=== PATIENT | female | born 1945 | race African-American/Black ===

== ENCOUNTER 2017-05-08 16:55 | Inpatient (IN) | payer MEDICARE, MEDICAID ==
[~2017-05-08] VITALS: Ht 182.9 cm; Wt 61.2 kg
[~2017-05-08 16:55] MED LIST: ALPR1TAB2 PO; AMIODARONE PO; ASPI-1159 PO; DIGO125T82 PO; DILT240C92 PO; DOC-Q-LACE PO; DOCU-150 PO; FERR-63 PO; FURO-151 PO; HYDR-519 PO; LOSA50TA20 PO; METO50TA5 PO; OCD PO; OYSTER SHELL CALCIUM PO; ZOLP5TAB8 PO
[2017-05-08 18:24] LABS: BASOPHILS % 1.3 % (0.0-2.0); EOSINOPHILS % 0.8 % (0.0-5.0); HEMATOCRIT. 34.7 % (36.0-48.0); HEMOGLOBIN. 11.4 g/dL (12.0-16.0); LYMPHOCYTES % 19.2 % (20.0-50.0); MEAN CORPUSCULAR HEMOGLOBIN 27.7 pg (28.0-32.0); MEAN CORPUSCULAR VOLUME 84.6 fL (81.0-99.0); MONOCYTES % 12.8 % (2.0-8.0); NEUTROPHILS % 65.9 % (40.0-76.0); PLATELET 291 x1000/uL (130-400); RED BLOOD CELL COUNT 4.11 mill/uL (4.2-5.4); RED CELL DISTRIBUTION WIDTH 16.1 % (11.6-14.6)
[2017-05-08 18:34] LABS: CARBON DIOXIDE 28 mEq/L (21-32); CHLORIDE 106 mEq/L (98-107); INR 1.1
[2017-05-08 18:39] LABS: TROPONIN I 0.14 ng/mL (0.00-0.04)
[2017-05-08] MEDS ORDERED: ASPIRIN 81MG TABLET PO ONE (19:15)
[2017-05-08] MEDS ORDERED: FUROSEMIDE 20MG/2ML VIAL IVP ONE (19:15)
[2017-05-08] MEDS ORDERED: IBUPROFEN 600MG TABLET PO PRN (20:00)
[2017-05-08] MEDS ORDERED: ACETAMINOPHEN 325MG TABLET PO PRN (20:00)
[2017-05-08 22:00] VITALS: BP 150/63
[2017-05-08] MEDS ORDERED: HYDR-2510 PO (23:32)
[2017-05-08] MEDS ORDERED: OMEP20TA2 PO (23:32)
[2017-05-08] MEDS ORDERED: HYDR-4133 PO (23:32)
[2017-05-09] MEDS: HYDROCODONE/ACETAMINOPHEN 10/325MG TABLET PO PRN ×2 (00:32→09:28)
[2017-05-09 00:35] VITALS: BP 172/67
[2017-05-09 05:02] VITALS: BP 182/76
[2017-05-09] MEDS: CALCIUM CARBONATE/VITAMIN D3 500MG TABLET PO SCH (07:02)
[2017-05-09] MEDS: HYDRALAZINE HCL 50MG TABLET PO SCH ×3 (07:02→21:12)
[2017-05-09] MEDS: OMEPRAZOLE 20MG CAPSULE EXTENDED RELEASE PO SCH (07:02)
[2017-05-09 07:29] LABS: HEMATOCRIT 32.6 % (36.0-48.0); HEMOGLOBIN 10.5 g/dL (12.0-16.0); MEAN CORPUSCULAR HEMOGLOBIN 27.6 pg (28.0-32.0); MEAN CORPUSCULAR VOLUME 85.4 fL (81.0-99.0); PLATELET 250 x1000/uL (130-400); RED BLOOD CELL COUNT 3.82 mill/uL (4.2-5.4); RED CELL DISTRIBUTION WIDTH 16.2 % (11.6-14.6)
[2017-05-09 07:50] VITALS: BP 118/67
[2017-05-09 07:52] LABS: CARBON DIOXIDE 31 mEq/L (21-32); CHLORIDE 106 mEq/L (98-107)
[2017-05-09] MEDS: CARVEDILOL 3.125 MG TABLET PO SCH ×2 (09:00→21:00)
[2017-05-09] MEDS ORDERED: MEDICATION NOT ON FORMULARY EA (Omeprazole 20 MG) PO SCH (09:00)
[2017-05-09] MEDS: DOCUSATE SODIUM 100MG CAPSULE PO SCH ×2 (09:16→17:05)
[2017-05-09] MEDS: ASPIRIN 81MG EC TABLET PO SCH (09:16)
[2017-05-09] MEDS: LOSARTAN POTASSIUM 50 MG TABLET PO SCH (09:16)
[2017-05-09] MEDS: FERROUS SULFATE 325MG TABLET PO SCH (09:17)
[2017-05-09] MEDS: FUROSEMIDE 40MG/4ML VIAL IVP SCH ×2 (09:17→17:05)
[2017-05-09] MEDS: METOPROLOL TARTRATE 50MG TABLET PO SCH ×2 (09:17→21:00)
[2017-05-09 11:48] VITALS: BP 169/68
[2017-05-09] MEDS: ENOXAPARIN 40MG/0.4ML SYR SUBCUT SCH (13:30)
[2017-05-09] MEDS ORDERED: DIAZEPAM 2 MG TABLET PO PRN (13:30)
[2017-05-09] MEDS ORDERED: IPRATROPIUM/ALBUTEROL 0.5-3(2.5)MG/3ML NEB HHN PRN ×2 (14:45)
[2017-05-09 16:00] VITALS: BP 160/67
[2017-05-09] MEDS: DIGOXIN 125MCG TABLET PO SCH (17:05)
[2017-05-09] MEDS: DIAZEPAM 2 MG TABLET PO PRN (17:05)
[2017-05-09] MEDS: IPRATROPIUM/ALBUTEROL 0.5-3(2.5)MG/3ML NEB HHN SCH ×2 (17:20→20:11)
[2017-05-09 20:06] VITALS: BP 171/61
[2017-05-10] MEDS: AMLODIPINE 10MG TABLET PO SCH ×2 (00:02→09:04)
[2017-05-10 00:03] VITALS: BP 169/67
[2017-05-10] MEDS: HYDROCODONE/ACETAMINOPHEN 10/325MG TABLET PO PRN ×3 (00:03→18:35)
[2017-05-10] MEDS: IPRATROPIUM/ALBUTEROL 0.5-3(2.5)MG/3ML NEB HHN SCH ×6 (00:31→20:41)
[2017-05-10 05:54] VITALS: BP 155/65
[2017-05-10] MEDS: HYDRALAZINE HCL 50MG TABLET PO SCH ×3 (06:25→21:58)
[2017-05-10] MEDS: OMEPRAZOLE 20MG CAPSULE EXTENDED RELEASE PO SCH (06:25)
[2017-05-10] MEDS: CALCIUM CARBONATE/VITAMIN D3 500MG TABLET PO SCH (06:25)
[2017-05-10 07:12] LABS: CARBON DIOXIDE 34 mEq/L (21-32); CHLORIDE 103 mEq/L (98-107)
[2017-05-10 08:00] VITALS: BP 148/79
[2017-05-10] MEDS: ENOXAPARIN 40MG/0.4ML SYR SUBCUT SCH (09:00)
[2017-05-10] MEDS: ASPIRIN 81MG EC TABLET PO SCH (09:04)
[2017-05-10] MEDS: FERROUS SULFATE 325MG TABLET PO SCH (09:04)
[2017-05-10] MEDS: DOCUSATE SODIUM 100MG CAPSULE PO SCH ×2 (09:04→17:36)
[2017-05-10] MEDS: LOSARTAN POTASSIUM 50 MG TABLET PO SCH (09:05)
[2017-05-10] MEDS: FUROSEMIDE 40MG/4ML VIAL IVP SCH ×2 (09:05→17:36)
[2017-05-10] MEDS: CARVEDILOL 3.125 MG TABLET PO SCH ×2 (09:05→21:58)
[2017-05-10 12:00] VITALS: BP 181/84
[2017-05-10] MEDS: DIAZEPAM 2 MG TABLET PO PRN (12:04)
[2017-05-10 16:00] VITALS: BP 141/58
[2017-05-10] MEDS: DIGOXIN 125MCG TABLET PO SCH (17:36)
[2017-05-10] MEDS ORDERED: BISACODYL 10MG SUPP PR PRN (18:00)
[2017-05-10] MEDS ORDERED: BISACODYL 5MG TABLET PO NR (18:03)
[2017-05-10 20:43] VITALS: BP 143/76
[2017-05-11] MEDS: IPRATROPIUM/ALBUTEROL 0.5-3(2.5)MG/3ML NEB HHN SCH ×5 (00:45→21:47)
[2017-05-11 01:17] VITALS: BP 139/54
[2017-05-11 04:30] VITALS: BP 135/53
[2017-05-11 06:26] LABS: CARBON DIOXIDE 37 mEq/L (21-32); CHLORIDE 99 mEq/L (98-107)
[2017-05-11 06:27] LABS: BASOPHILS % 1.3 % (0.0-2.0); EOSINOPHILS % 1.8 % (0.0-5.0); HEMATOCRIT. 28.6 % (36.0-48.0); HEMOGLOBIN. 9.2 g/dL (12.0-16.0); LYMPHOCYTES % 19.8 % (20.0-50.0); MEAN CORPUSCULAR HEMOGLOBIN 27.4 pg (28.0-32.0); MEAN CORPUSCULAR VOLUME 84.9 fL (81.0-99.0); MEAN PLATELET VOLUME 7.1 fl (7.4-10.4); MONOCYTES % 13.8 % (2.0-8.0); NEUTROPHILS % 63.3 % (40.0-76.0); PLATELET 213 x1000/uL (130-400); RED BLOOD CELL COUNT 3.37 mill/uL (4.2-5.4)
[2017-05-11] MEDS: CALCIUM CARBONATE/VITAMIN D3 500MG TABLET PO SCH (06:28)
[2017-05-11] MEDS: HYDRALAZINE HCL 50MG TABLET PO SCH ×3 (06:29→21:32)
[2017-05-11] MEDS: HYDROCODONE/ACETAMINOPHEN 10/325MG TABLET PO PRN ×3 (06:57→22:43)
[2017-05-11 08:00] VITALS: BP 135/70
[2017-05-11] MEDS: ENOXAPARIN 40MG/0.4ML SYR SUBCUT SCH (09:00)
[2017-05-11] MEDS: AMLODIPINE 10MG TABLET PO SCH (10:26)
[2017-05-11] MEDS: FUROSEMIDE 40MG/4ML VIAL IVP SCH ×2 (10:26→17:01)
[2017-05-11] MEDS: FERROUS SULFATE 325MG TABLET PO SCH (10:26)
[2017-05-11] MEDS: DOCUSATE SODIUM 100MG CAPSULE PO SCH ×2 (10:26→17:01)
[2017-05-11] MEDS: LOSARTAN POTASSIUM 50 MG TABLET PO SCH (10:26)
[2017-05-11] MEDS: ASPIRIN 81MG EC TABLET PO SCH (10:27)
[2017-05-11] MEDS: CARVEDILOL 3.125 MG TABLET PO SCH ×2 (10:27→21:34)
[2017-05-11] MEDS: FAMOTIDINE 20MG TABLET PO SCH ×2 (10:27→21:31)
[2017-05-11] MEDS ORDERED: SODIUM CHLORIDE 0.9% 10ML VIAL ONE (11:47)
[2017-05-11] MEDS ORDERED: IOHEXOL-300 100 ML BOTTLE ONE (11:47)
[2017-05-11 12:00] VITALS: BP 155/85
[2017-05-11] MEDS: BUDESONIDE 0.5MG/2ML NEB HHN SCH ×2 (12:05→21:46)
[2017-05-11 16:00] VITALS: BP 146/95
[2017-05-11 16:05] LABS: CLARITY URINE CLEAR (CLEAR); COLOR URINE YELLOW (YELLOW); GLUCOSE URINE NEGATIVE (NEGATIVE); KETONES URINE NEGATIVE (NEGATIVE); LEUKOCYTE ESTERASE URINE NEGATIVE (NEGATIVE); NITRITE URINE NEGATIVE (NEGATIVE); OCCULT BLOOD URINE NEGATIVE (NEGATIVE); PH URINE 7.5 (4.5-8.0); PROTEIN URINE NEGATIVE (NEGATIVE); SPECIFIC GRAVITY URINE 1.035 (1.005-1.030); UROBILINOGEN URINE 0.2 E.U./dL (0.2-1.0)
[2017-05-11 16:16] LABS: *AMPHETAMINES SCREEN URINE NEGATIVE (NEGATIVE); *BARBITURATES SCREEN URINE NEGATIVE (NEGATIVE); *BENZODIAZEPINES SCREEN URINE NEGATIVE (NEGATIVE); *COCAINE SCREEN URINE NEGATIVE (NEGATIVE); CANNABINOID URINE SCREEN NEGATIVE (NEGATIVE); METHADONE URINE SCREEN NEGATIVE (NEGATIVE); OPIATES URINE SCREEN PRESUMTIVE POSITIVE (NEGATIVE); PHENCYCLIDINE URINE SCREEN NEGATIVE (NEGATIVE)
[2017-05-11] MEDS: METHYLPREDNISOLONE SOD SUCC 40 MG/ML VIAL IV SCH (17:01)
[2017-05-11] MEDS: DIGOXIN 125MCG TABLET PO SCH (17:01)
[2017-05-11] MEDS ORDERED: NICOTINE 21MG PATCH TD NR (18:30)
[2017-05-11 20:13] VITALS: BP 176/75
[2017-05-11] MEDS: GUAIFENESIN 600MG ER TABLET PO SCH (21:32)
[2017-05-12] VITALS (7 sets, daily range): BP systolic 108–179; BP diastolic 61–73
[2017-05-12] MEDS: IPRATROPIUM/ALBUTEROL 0.5-3(2.5)MG/3ML NEB HHN SCH ×6 (00:56→20:11)
[2017-05-12] MEDS: METHYLPREDNISOLONE SOD SUCC 40 MG/ML VIAL IV SCH ×2 (01:00→09:05)
[2017-05-12] MEDS: CALCIUM CARBONATE/VITAMIN D3 500MG TABLET PO SCH (06:00)
[2017-05-12] MEDS: HYDRALAZINE HCL 50MG TABLET PO SCH ×3 (06:00→21:28)
[2017-05-12] MEDS: HYDROCODONE/ACETAMINOPHEN 10/325MG TABLET PO PRN ×3 (06:00→23:02)
[2017-05-12] MEDS: ENOXAPARIN 40MG/0.4ML SYR SUBCUT SCH (09:00)
[2017-05-12] MEDS: FUROSEMIDE 40MG/4ML VIAL IVP SCH ×2 (09:05→18:21)
[2017-05-12] MEDS: CARVEDILOL 3.125 MG TABLET PO SCH ×2 (09:06→21:00)
[2017-05-12] MEDS: NICOTINE 21MG PATCH TD SCH (09:06)
[2017-05-12] MEDS: GUAIFENESIN 600MG ER TABLET PO SCH ×2 (09:06→21:27)
[2017-05-12] MEDS: FERROUS SULFATE 325MG TABLET PO SCH (09:06)
[2017-05-12] MEDS: LOSARTAN POTASSIUM 50 MG TABLET PO SCH (09:07)
[2017-05-12] MEDS: DOCUSATE SODIUM 100MG CAPSULE PO SCH ×2 (09:07→18:22)
[2017-05-12] MEDS: DIAZEPAM 2 MG TABLET PO PRN (09:07)
[2017-05-12] MEDS: AMLODIPINE 10MG TABLET PO SCH (09:07)
[2017-05-12] MEDS: ASPIRIN 81MG EC TABLET PO SCH (09:07)
[2017-05-12] MEDS: FAMOTIDINE 20MG TABLET PO SCH ×3 (09:07→21:27)
[2017-05-12] MEDS ORDERED: NIFEDIPINE XL 30MG TAB PO SCH (10:00)
[2017-05-12] MEDS: BUDESONIDE 0.5MG/2ML NEB HHN SCH ×2 (10:09→20:11)
[2017-05-12] MEDS ORDERED: AMLODIPINE 5MG TABLET PO NR (12:00)
[2017-05-12] MEDS: PREDNISONE 20MG TABLET PO SCH (12:53)
[2017-05-12] MEDS: DIAZEPAM 5 MG TABLET PO PRN (15:43)
[2017-05-12] MEDS: CLONIDINE 0.1MG TABLET PO PRN (15:43)
[2017-05-12] MEDS: DIGOXIN 125MCG TABLET PO SCH (18:21)
[2017-05-12] MEDS: AMLODIPINE 5MG TABLET PO SCH (21:00)
[2017-05-13] VITALS (7 sets, daily range): BP systolic 117–159; BP diastolic 52–84
[2017-05-13] MEDS: IPRATROPIUM/ALBUTEROL 0.5-3(2.5)MG/3ML NEB HHN SCH ×7 (00:09→23:37)
[2017-05-13] MEDS: DIAZEPAM 5 MG TABLET PO PRN ×2 (04:13→16:23)
[2017-05-13] MEDS: HYDRALAZINE HCL 50MG TABLET PO SCH ×3 (06:17→21:14)
[2017-05-13] MEDS: CALCIUM CARBONATE/VITAMIN D3 500MG TABLET PO SCH (06:17)
[2017-05-13] MEDS: HYDROCODONE/ACETAMINOPHEN 10/325MG TABLET PO PRN ×2 (06:17→15:12)
[2017-05-13] MEDS: BUDESONIDE 0.5MG/2ML NEB HHN SCH ×2 (08:15→21:52)
[2017-05-13] MEDS: ENOXAPARIN 40MG/0.4ML SYR SUBCUT SCH (09:00)
[2017-05-13] MEDS: FAMOTIDINE 20MG TABLET PO SCH ×2 (09:37→21:15)
[2017-05-13] MEDS: PREDNISONE 20MG TABLET PO SCH (09:37)
[2017-05-13] MEDS: GUAIFENESIN 600MG ER TABLET PO SCH ×2 (09:37→21:15)
[2017-05-13] MEDS: FUROSEMIDE 40MG/4ML VIAL IVP SCH ×2 (09:37→17:05)
[2017-05-13] MEDS: NICOTINE 21MG PATCH TD SCH (09:37)
[2017-05-13] MEDS: FERROUS SULFATE 325MG TABLET PO SCH (09:37)
[2017-05-13] MEDS: LOSARTAN POTASSIUM 50 MG TABLET PO SCH (09:37)
[2017-05-13] MEDS: DOCUSATE SODIUM 100MG CAPSULE PO SCH ×2 (09:38→17:05)
[2017-05-13] MEDS: CARVEDILOL 3.125 MG TABLET PO SCH ×2 (09:38→21:14)
[2017-05-13] MEDS: ASPIRIN 81MG EC TABLET PO SCH (09:38)
[2017-05-13] MEDS: AMLODIPINE 5MG TABLET PO SCH ×2 (09:39→21:15)
[2017-05-13 15:03] LABS: BG CARBOXYHEMOGLOBIN 0.3 % (0.5-1.5); BG DEOXYHEMOGLOBIN 6.4 % (0.0-5.0); BG FRACTION INSPIRED OXYGEN 21; BG METHEMOGLOBIN 0.3 % (0.0-1.5); BG OXYGEN SATURATION 93.6 % (92.0-98.5); BG PCO2 48.9 mmHg (35.0-45.0); BG PO2 66.7 mmHg (75.0-100.0); BG SAMPLE SITE RIGHT RADIAL; BG TOTAL HEMOGLOBIN 10.8 g/dL (12.0-18.0); BG VENT MODE ROOM AIR
[2017-05-13] MEDS: DIGOXIN 125MCG TABLET PO SCH (17:05)
[2017-05-14 00:13] VITALS: BP 119/50
[2017-05-14] MEDS: HYDROCODONE/ACETAMINOPHEN 10/325MG TABLET PO PRN ×3 (01:54→15:43)
[2017-05-14] MEDS: IPRATROPIUM/ALBUTEROL 0.5-3(2.5)MG/3ML NEB HHN SCH ×5 (04:22→20:40)
[2017-05-14 04:34] VITALS: BP 151/63
[2017-05-14] MEDS: DIAZEPAM 5 MG TABLET PO PRN ×2 (06:28→22:35)
[2017-05-14] MEDS: HYDRALAZINE HCL 50MG TABLET PO SCH ×3 (06:29→21:12)
[2017-05-14] MEDS: CALCIUM CARBONATE/VITAMIN D3 500MG TABLET PO SCH (06:29)
[2017-05-14] MEDS: BUDESONIDE 0.5MG/2ML NEB HHN SCH (08:00)
[2017-05-14 08:15] VITALS: BP 128/55
[2017-05-14] MEDS: GUAIFENESIN 600MG ER TABLET PO SCH ×2 (08:23→21:13)
[2017-05-14] MEDS: FERROUS SULFATE 325MG TABLET PO SCH (08:23)
[2017-05-14] MEDS: CARVEDILOL 3.125 MG TABLET PO SCH ×2 (08:23→21:13)
[2017-05-14] MEDS: FAMOTIDINE 20MG TABLET PO SCH ×2 (08:23→21:12)
[2017-05-14] MEDS: ASPIRIN 81MG EC TABLET PO SCH (08:23)
[2017-05-14] MEDS: PREDNISONE 20MG TABLET PO SCH (08:23)
[2017-05-14] MEDS: FUROSEMIDE 40MG/4ML VIAL IVP SCH ×2 (08:23→17:42)
[2017-05-14] MEDS: DOCUSATE SODIUM 100MG CAPSULE PO SCH ×2 (08:23→17:42)
[2017-05-14] MEDS: LOSARTAN POTASSIUM 50 MG TABLET PO SCH (08:23)
[2017-05-14] MEDS: AMLODIPINE 5MG TABLET PO SCH ×2 (08:23→21:12)
[2017-05-14] MEDS: NICOTINE 21MG PATCH TD SCH (08:24)
[2017-05-14] MEDS: ENOXAPARIN 40MG/0.4ML SYR SUBCUT SCH (08:28)
[2017-05-14 12:30] VITALS: BP 122/58
[2017-05-14 16:20] VITALS: BP 157/60
[2017-05-14] MEDS: DIGOXIN 125MCG TABLET PO SCH (17:42)
[2017-05-14 20:00] VITALS: BP 165/63
[2017-05-15] VITALS: BP 144/55
[2017-05-15] MEDS: IPRATROPIUM/ALBUTEROL 0.5-3(2.5)MG/3ML NEB HHN SCH ×6 (00:27→20:13)
[2017-05-15] MEDS: CALCIUM CARBONATE/VITAMIN D3 500MG TABLET PO SCH (06:57)
[2017-05-15] MEDS: HYDROCODONE/ACETAMINOPHEN 10/325MG TABLET PO PRN ×2 (06:57→15:55)
[2017-05-15] MEDS: HYDRALAZINE HCL 50MG TABLET PO SCH ×3 (06:57→21:59)
[2017-05-15 07:01] VITALS: BP 149/68
[2017-05-15] MEDS ORDERED: AMLO5TAB88 PO (07:58)
[2017-05-15] MEDS ORDERED: DIGO-26 PO (07:58)
[2017-05-15] MEDS ORDERED: FERR325T23 PO (07:58)
[2017-05-15] MEDS ORDERED: COR3 PO (07:58)
[2017-05-15] MEDS ORDERED: FURO-151 PO (07:58)
[2017-05-15] MEDS ORDERED: ASPI-1158 PO (07:58)
[2017-05-15] MEDS ORDERED: LOSA50TA20 PO (07:58)
[2017-05-15] MEDS ORDERED: DIAZ5TAB PO (07:58)
[2017-05-15] MEDS ORDERED: DILT240C92 PO (07:58)
[2017-05-15] MEDS ORDERED: HYDR-4133 PO (07:58)
[2017-05-15] MEDS ORDERED: NICO-682 TD (07:58)
[2017-05-15] MEDS ORDERED: METH4TAB17 PO (07:58)
[2017-05-15] MEDS: ENOXAPARIN 40MG/0.4ML SYR SUBCUT SCH ×2 (09:00→10:53)
[2017-05-15 10:00] VITALS: BP 151/57
[2017-05-15] MEDS: FUROSEMIDE 40MG/4ML VIAL IVP SCH ×2 (10:29→17:45)
[2017-05-15] MEDS: DOCUSATE SODIUM 100MG CAPSULE PO SCH ×2 (10:51→17:42)
[2017-05-15] MEDS: ASPIRIN 81MG EC TABLET PO SCH (10:51)
[2017-05-15] MEDS: CARVEDILOL 3.125 MG TABLET PO SCH ×2 (10:51→21:24)
[2017-05-15] MEDS: PREDNISONE 20MG TABLET PO SCH (10:52)
[2017-05-15] MEDS: FAMOTIDINE 20MG TABLET PO SCH ×2 (10:52→21:26)
[2017-05-15] MEDS: AMLODIPINE 5MG TABLET PO SCH ×2 (10:52→21:26)
[2017-05-15] MEDS: NICOTINE 21MG PATCH TD SCH (10:52)
[2017-05-15] MEDS: DIAZEPAM 5 MG TABLET PO PRN (10:52)
[2017-05-15] MEDS: FERROUS SULFATE 325MG TABLET PO SCH (10:52)
[2017-05-15] MEDS: LOSARTAN POTASSIUM 50 MG TABLET PO SCH (10:53)
[2017-05-15] MEDS: GUAIFENESIN 600MG ER TABLET PO SCH ×2 (10:53→21:25)
[2017-05-15 13:22] VITALS: BP 143/63
[2017-05-15 17:40] VITALS: BP 137/58
[2017-05-15] MEDS: DIGOXIN 125MCG TABLET PO SCH (17:41)
[2017-05-15 20:00] VITALS: BP 143/60
[2017-05-16] VITALS (7 sets, daily range): BP systolic 130–167; BP diastolic 58–73
[2017-05-16] MEDS: IPRATROPIUM/ALBUTEROL 0.5-3(2.5)MG/3ML NEB HHN SCH ×6 (00:07→19:49)
[2017-05-16] MEDS: HYDROCODONE/ACETAMINOPHEN 10/325MG TABLET PO PRN ×2 (04:02→15:04)
[2017-05-16 05:46] LABS: HEMOGLOBIN 9.6 g/dL (12.0-16.0); MEAN CORPUSCULAR HEMOGLOBIN 27.3 pg (28.0-32.0); MEAN CORPUSCULAR VOLUME 85.2 fL (81.0-99.0); PLATELET 257 x1000/uL (130-400); RED BLOOD CELL COUNT 3.52 mill/uL (4.2-5.4); RED CELL DISTRIBUTION WIDTH 16.1 % (11.6-14.6)
[2017-05-16] MEDS: HYDRALAZINE HCL 50MG TABLET PO SCH ×2 (07:00→14:52)
[2017-05-16] MEDS: CALCIUM CARBONATE/VITAMIN D3 500MG TABLET PO SCH (07:00)
[2017-05-16] MEDS: DIAZEPAM 5 MG TABLET PO PRN (07:04)
[2017-05-16] MEDS: FUROSEMIDE 40MG/4ML VIAL IVP SCH ×2 (08:34→17:00)
[2017-05-16] MEDS: ENOXAPARIN 40MG/0.4ML SYR SUBCUT SCH (08:58)
[2017-05-16] MEDS: DOCUSATE SODIUM 100MG CAPSULE PO SCH ×2 (10:23→18:08)
[2017-05-16] MEDS: FERROUS SULFATE 325MG TABLET PO SCH (10:23)
[2017-05-16] MEDS: LOSARTAN POTASSIUM 50 MG TABLET PO SCH (10:24)
[2017-05-16] MEDS: CARVEDILOL 3.125 MG TABLET PO SCH (10:24)
[2017-05-16] MEDS: PREDNISONE 20MG TABLET PO SCH (10:24)
[2017-05-16] MEDS: FAMOTIDINE 20MG TABLET PO SCH (10:24)
[2017-05-16] MEDS: ASPIRIN 81MG EC TABLET PO SCH (10:24)
[2017-05-16] MEDS: AMLODIPINE 5MG TABLET PO SCH (10:24)
[2017-05-16] MEDS: NICOTINE 21MG PATCH TD SCH (10:24)
[2017-05-16] MEDS: GUAIFENESIN 600MG ER TABLET PO SCH (10:30)
[2017-05-16] MEDS: DIGOXIN 125MCG TABLET PO SCH (18:08)
[2017-05-16] MEDS: CLONIDINE 0.1MG TABLET PO PRN (18:09)
== END 2017-05-16 21:16 | disposition home or self-care (01) | DRG 194 ==
LOC: ER 16:55 → 6WST 20:00 → ENRESERV 20:37
PROVIDERS: ADMIT Internal Medicine; ATTEND Internal Medicine
DX: I11.0 Hypertensive heart disease with heart failure (principal); J96.00 Acute respiratory failure, unspecified whether with hypoxia or hypercapnia; E43 Unspecified severe protein-calorie malnutrition; I27.2 Other secondary pulmonary hypertension; J84.10 Pulmonary fibrosis, unspecified; I50.41 Acute combined systolic (congestive) and diastolic (congestive) heart failure; J44.1 Chronic obstructive pulmonary disease with (acute) exacerbation; F17.210 Nicotine dependence, cigarettes, uncomplicated; E78.5 Hyperlipidemia, unspecified; F14.90 Cocaine use, unspecified, uncomplicated; E78.00 Pure hypercholesterolemia, unspecified; F32.9 Major depressive disorder, single episode, unspecified; F41.9 Anxiety disorder, unspecified; M19.90 Unspecified osteoarthritis, unspecified site; Z90.49 Acquired absence of other specified parts of digestive tract; Z90.710 Acquired absence of both cervix and uterus; Z88.0 Allergy status to penicillin; Z88.1 Allergy status to other antibiotic agents; Z79.899 Other long term (current) drug therapy; Z86.718 Personal history of other venous thrombosis and embolism; I25.2 Old myocardial infarction; Z68.1 Body mass index [BMI] 19.9 or less, adult; Z71.6 Tobacco abuse counseling; R51 Headache
CPT/HCPCS: 36415; 36600; 70450; 71010; 71260; 73552; 78582; 80048; 80053; 80305; 81003; 82375; 82805; 83880; 84443; 84484; 85025; 85027; 85610; 85651; 93005; 93306; 93970; 94620; 94640; 94664; 96374; 99285; A4216; A9556; A9558; C1893; J1650; J1940; J2920; J7512; J7620; J7626; Q9967

== ENCOUNTER 2017-05-21 14:47 | Inpatient (IN) | payer MEDICARE, MEDICAID ==
[~2017-05-21] VITALS: Ht 188 cm; Wt 74.8 kg
[~2017-05-21 14:47] MED LIST changes: -AMIODARONE PO; +AMLO5TAB88 PO; +ASPI-1158 PO; -ASPI-1159 PO; +COR3 PO; +DIAZ5TAB PO; +DIGO-26 PO; -DIGO125T82 PO; -FERR-63 PO; +FERR325T23 PO; +HYDR-4133 PO; +METH4TAB17 PO; -METO50TA5 PO; +NICO-682 TD; +OMEP20TA2 PO
[2017-05-21] MEDS ORDERED: FUROSEMIDE 40MG/4ML VIAL IV STA (15:21)
[2017-05-21] MEDS ORDERED: METHYLPREDNISOLONE SOD SUCC 125 MG/2 ML VIAL IV STA (15:21)
[2017-05-21] MEDS ORDERED: IPRATROPIUM/ALBUTEROL 0.5-3(2.5)MG/3ML NEB HHN ONE (15:30)
[2017-05-21] MEDS ORDERED: LEVOFLOXACIN 750MG PREMIX 150 ML IV ONE (15:30)
[2017-05-21 15:44] LABS: HEMATOCRIT. 28.2 % (36.0-48.0); MEAN CORPUSCULAR HEMOGLOBIN 27.9 pg (28.0-32.0); MEAN CORPUSCULAR VOLUME 87.9 fL (81.0-99.0); MEAN PLATELET VOLUME 7.3 fl (7.4-10.4); PLATELET 289 x1000/uL (130-400); RED BLOOD CELL COUNT 3.21 mill/uL (4.2-5.4); RED CELL DISTRIBUTION WIDTH 16.5 % (11.6-14.6)
[2017-05-21 15:48] LABS: CHLORIDE 105 mEq/L (98-107)
[2017-05-21 15:49] LABS: PARTIAL THROMBOPLASTIN TIME 23.8 sec (23.4-31.0); PROTHROMBIN TIME 10.5 sec (9.4-11.6)
[2017-05-21 15:50] LABS: BG BASE EXCESS 5.2 mmol/L (-2.0-2.0); BG CARBOXYHEMOGLOBIN 1.5 % (0.5-1.5); BG DEOXYHEMOGLOBIN 4.4 % (0.0-5.0); BG HCO3 ACT 31.8 mmol/L (22.0-26.0); BG METHEMOGLOBIN 0.4 % (0.0-1.5); BG OXYGEN SATURATION 95.5 % (92.0-98.5); BG OXYHEMOGLOBIN 93.7 % (94.0-97.0); BG PCO2 57.8 mmHg (35.0-45.0); BG PH 7.358 (7.350-7.450); BG PO2 81.9 mmHg (75.0-100.0); BG SAMPLE SITE RIGHT RADIAL; BG TOTAL HEMOGLOBIN 9.9 g/dL (12.0-18.0); BG VENT MODE NASAL CANNULA
[2017-05-21 16:00] LABS: CARBON DIOXIDE 31 mEq/L (21-32); CREATINE KINASE 29 IU/L (26-192); TROPONIN I 0.14 ng/mL (0.00-0.04)
[2017-05-21 16:08] LABS: PLATELET ESTIMATE NORMAL
[2017-05-21 16:39] LABS: CLARITY URINE CLEAR (CLEAR); COLOR URINE YELLOW (YELLOW); GLUCOSE URINE NEGATIVE (NEGATIVE); KETONES URINE NEGATIVE (NEGATIVE); LEUKOCYTE ESTERASE URINE NEGATIVE (NEGATIVE); NITRITE URINE NEGATIVE (NEGATIVE); OCCULT BLOOD URINE NEGATIVE (NEGATIVE); PH URINE 5.5 (4.5-8.0); PROTEIN URINE NEGATIVE (NEGATIVE); SPECIFIC GRAVITY URINE 1.016 (1.005-1.030); UROBILINOGEN URINE 0.2 E.U./dL (0.2-1.0)
[2017-05-21] MEDS ORDERED: ONDANSETRON HCL 4MG/2ML VIAL IV ONE (20:30)
[2017-05-21] MEDS ORDERED: MORPHINE SULFATE 4 MG/ML CPJ (NOT FOR IM USE) IV ONE (20:30)
[2017-05-21 21:00] VITALS: BP 138/64
[2017-05-21] MEDS: MORPHINE SULFATE 4 MG/ML CPJ (NOT FOR IM USE) IV PRN (22:39)
[2017-05-21] MEDS ORDERED: METO50TA5 PO (23:35)
[2017-05-21] MEDS ORDERED: LORA1TAB PO (23:35)
[2017-05-21] MEDS ORDERED: HYDR100T26 PO (23:35)
[2017-05-21] MEDS ORDERED: HYDR-2510 PO (23:35)
[2017-05-21] MEDS ORDERED: CLONIDINE 0.1MG TABLET PO PRN (23:45)
[2017-05-21] MEDS ORDERED: ONDANSETRON HCL 4MG/2ML VIAL IV PRN (23:45)
[2017-05-21] MEDS ORDERED: LEVOFLOXACIN 500MG PREMIX 100 ML IV SCH (23:45)
[2017-05-22] VITALS: BP 121/54
[2017-05-22] MEDS: METHYLPREDNISOLONE SOD SUCC 40 MG/ML VIAL IV SCH ×2 (01:22→09:41)
[2017-05-22] MEDS ORDERED: IPRATROPIUM/ALBUTEROL 0.5-3(2.5)MG/3ML NEB HHN PRN (01:30)
[2017-05-22] MEDS: IPRATROPIUM/ALBUTEROL 0.5-3(2.5)MG/3ML NEB HHN SCH ×5 (02:03→21:10)
[2017-05-22 04:00] VITALS: BP 135/57
[2017-05-22] MEDS: MORPHINE SULFATE 4 MG/ML CPJ (NOT FOR IM USE) IV PRN (06:02)
[2017-05-22 06:09] LABS: HEMATOCRIT. 30.9 % (36.0-48.0); HEMOGLOBIN. 9.8 g/dL (12.0-16.0); MEAN CORPUSCULAR VOLUME 88.3 fL (81.0-99.0); MEAN PLATELET VOLUME 7.6 fl (7.4-10.4); PLATELET 328 x1000/uL (130-400); RED CELL DISTRIBUTION WIDTH 17.4 % (11.6-14.6)
[2017-05-22 08:00] VITALS: BP 137/56
[2017-05-22] MEDS: ENOXAPARIN 40MG/0.4ML SYR SUBCUT SCH (09:00)
[2017-05-22] MEDS: LORAZEPAM 1MG TABLET PO SCH ×2 (11:30→12:30)
[2017-05-22 12:00] VITALS: BP 134/53
[2017-05-22] MEDS: LOSARTAN POTASSIUM 50 MG TABLET PO SCH (12:31)
[2017-05-22] MEDS: FERROUS SULFATE 325MG TABLET PO SCH (12:31)
[2017-05-22] MEDS: ASPIRIN 81MG EC TABLET PO SCH (12:31)
[2017-05-22] MEDS: CALCIUM CARBONATE/VITAMIN D3 500MG TABLET PO SCH (14:02)
[2017-05-22] MEDS: NICOTINE 21MG PATCH TD SCH (14:03)
[2017-05-22] MEDS: CARVEDILOL 3.125 MG TABLET PO SCH ×2 (14:04→21:25)
[2017-05-22] MEDS: HYDRALAZINE HCL 100MG TABLET PO SCH ×2 (14:08→21:26)
[2017-05-22 16:00] VITALS: BP 136/110
[2017-05-22] MEDS ORDERED: LEVOFLOXACIN 250MG PREMIX 50 ML IV SCH (16:00)
[2017-05-22] MEDS ORDERED: METOPROLOL TARTRATE 50MG TABLET PO SCH (17:00)
[2017-05-22] MEDS: DIGOXIN 125MCG TABLET PO SCH (17:35)
[2017-05-22] MEDS: DOCUSATE SODIUM 100MG CAPSULE PO SCH (17:35)
[2017-05-22] MEDS: DIAZEPAM 5 MG TABLET PO PRN (17:49)
[2017-05-22] MEDS: HYDROCODONE/ACETAMINOPHEN 10/325MG TABLET PO PRN (18:47)
[2017-05-22 20:00] VITALS: BP 121/57
[2017-05-22 20:39] LABS: PLATELET ESTIMATE NORMAL
[2017-05-22] MEDS: BUDESONIDE 0.5MG/2ML NEB HHN SCH (21:10)
[2017-05-22] MEDS: AMLODIPINE 5MG TABLET PO SCH (21:25)
[2017-05-22] MEDS: ALPRAZOLAM 0.5 MG TABLET PO PRN (21:25)
[2017-05-23] VITALS: BP 104/47
[2017-05-23] MEDS: IPRATROPIUM/ALBUTEROL 0.5-3(2.5)MG/3ML NEB HHN SCH ×4 (01:12→20:54)
[2017-05-23 04:00] VITALS: BP 117/54
[2017-05-23] MEDS: HYDRALAZINE HCL 100MG TABLET PO SCH ×3 (06:46→22:00)
[2017-05-23 08:00] VITALS: BP 114/54
[2017-05-23 08:29] LABS: *AMPHETAMINES SCREEN URINE NEGATIVE (NEGATIVE); *BARBITURATES SCREEN URINE NEGATIVE (NEGATIVE); *BENZODIAZEPINES SCREEN URINE PRESUMTIVE POSITIVE (NEGATIVE); CANNABINOID URINE SCREEN NEGATIVE (NEGATIVE); METHADONE URINE SCREEN NEGATIVE (NEGATIVE); OPIATES URINE SCREEN PRESUMTIVE POSITIVE (NEGATIVE); PHENCYCLIDINE URINE SCREEN NEGATIVE (NEGATIVE)
[2017-05-23 08:32] LABS: *COCAINE SCREEN URINE PRESUMTIVE POSITIVE (NEGATIVE)
[2017-05-23] MEDS: HYDROCODONE/ACETAMINOPHEN 10/325MG TABLET PO PRN ×2 (08:57→21:26)
[2017-05-23] MEDS: HYDROCHLOROTHIAZIDE 50MG TABLET PO SCH (08:57)
[2017-05-23] MEDS: CALCIUM CARBONATE/VITAMIN D3 500MG TABLET PO SCH (08:57)
[2017-05-23] MEDS: NICOTINE 21MG PATCH TD SCH (08:58)
[2017-05-23] MEDS: ENOXAPARIN 40MG/0.4ML SYR SUBCUT SCH (08:58)
[2017-05-23] MEDS: FUROSEMIDE 40MG TABLET PO SCH (08:58)
[2017-05-23] MEDS: DOCUSATE SODIUM 100MG CAPSULE PO SCH ×2 (08:58→18:03)
[2017-05-23] MEDS: ASPIRIN 81MG EC TABLET PO SCH (08:58)
[2017-05-23] MEDS: FERROUS SULFATE 325MG TABLET PO SCH (08:58)
[2017-05-23] MEDS: LOSARTAN POTASSIUM 50 MG TABLET PO SCH (09:00)
[2017-05-23] MEDS ORDERED: PREDNISONE 20MG TABLET PO SCH (09:00)
[2017-05-23] MEDS: AMLODIPINE 5MG TABLET PO SCH ×2 (09:00→20:36)
[2017-05-23] MEDS: CARVEDILOL 3.125 MG TABLET PO SCH ×2 (09:00→20:36)
[2017-05-23] MEDS: BUDESONIDE 0.5MG/2ML NEB HHN SCH ×2 (09:25→20:53)
[2017-05-23 12:00] VITALS: BP 127/60
[2017-05-23] MEDS: DIAZEPAM 5 MG TABLET PO PRN (15:05)
[2017-05-23 16:00] VITALS: BP 122/55
[2017-05-23] MEDS ORDERED: TERBUTALINE SULFATE 1MG/ML VIAL SUBCUT NR (17:15)
[2017-05-23] MEDS: DIGOXIN 125MCG TABLET PO SCH (18:04)
[2017-05-23] MEDS: METHYLPREDNISOLONE SOD SUCC 40 MG/ML VIAL IV SCH (18:04)
[2017-05-23 20:00] VITALS: BP 111/58
[2017-05-24] VITALS: BP 140/59
[2017-05-24] MEDS: ALPRAZOLAM 0.5 MG TABLET PO PRN (03:04)
[2017-05-24] MEDS: IPRATROPIUM/ALBUTEROL 0.5-3(2.5)MG/3ML NEB HHN SCH ×3 (03:51→21:05)
[2017-05-24 04:00] VITALS: BP 149/65
[2017-05-24] MEDS: HYDRALAZINE HCL 100MG TABLET PO SCH ×3 (05:45→21:15)
[2017-05-24 07:40] LABS: HEMATOCRIT. 30.2 % (36.0-48.0); HEMOGLOBIN. 9.6 g/dL (12.0-16.0); MEAN CORPUSCULAR HEMOGLOBIN 27.9 pg (28.0-32.0); MEAN CORPUSCULAR VOLUME 88.1 fL (81.0-99.0); MEAN PLATELET VOLUME 7.8 fl (7.4-10.4); PLATELET 328 x1000/uL (130-400); RED BLOOD CELL COUNT 3.43 mill/uL (4.2-5.4); RED CELL DISTRIBUTION WIDTH 18.5 % (11.6-14.6)
[2017-05-24 08:00] VITALS: BP 145/61
[2017-05-24 08:50] LABS: CARBON DIOXIDE 31 mEq/L (21-32); CHLORIDE 96 mEq/L (98-107)
[2017-05-24] MEDS: ENOXAPARIN 40MG/0.4ML SYR SUBCUT SCH (09:00)
[2017-05-24] MEDS: NICOTINE 21MG PATCH TD SCH (09:05)
[2017-05-24] MEDS: METHYLPREDNISOLONE SOD SUCC 40 MG/ML VIAL IV SCH ×2 (09:05→18:49)
[2017-05-24] MEDS: LOSARTAN POTASSIUM 50 MG TABLET PO SCH (09:06)
[2017-05-24] MEDS: FERROUS SULFATE 325MG TABLET PO SCH (09:06)
[2017-05-24] MEDS: CALCIUM CARBONATE/VITAMIN D3 500MG TABLET PO SCH (09:06)
[2017-05-24] MEDS: AMLODIPINE 5MG TABLET PO SCH ×2 (09:06→21:15)
[2017-05-24] MEDS: FUROSEMIDE 40MG TABLET PO SCH (09:06)
[2017-05-24] MEDS: DOCUSATE SODIUM 100MG CAPSULE PO SCH ×2 (09:06→18:49)
[2017-05-24] MEDS: ASPIRIN 81MG EC TABLET PO SCH (09:06)
[2017-05-24] MEDS: CARVEDILOL 3.125 MG TABLET PO SCH ×2 (09:07→21:15)
[2017-05-24 12:00] VITALS: BP 138/54
[2017-05-24] MEDS: DIAZEPAM 5 MG TABLET PO PRN (12:08)
[2017-05-24] MEDS: BUDESONIDE 0.5MG/2ML NEB HHN SCH ×2 (12:10→21:04)
[2017-05-24] MEDS: HYDROCHLOROTHIAZIDE 50MG TABLET PO SCH (12:15)
[2017-05-24 12:55] LABS: PLATELET ESTIMATE NORMAL
[2017-05-24 16:00] VITALS: BP 137/65
[2017-05-24] MEDS: DIGOXIN 125MCG TABLET PO SCH (18:49)
[2017-05-24 20:00] VITALS: BP 129/64
[2017-05-24] MEDS: HYDROCODONE/ACETAMINOPHEN 10/325MG TABLET PO PRN (21:56)
[2017-05-25] VITALS (7 sets, daily range): BP systolic 116–152; BP diastolic 58–67
[2017-05-25] MEDS: IPRATROPIUM/ALBUTEROL 0.5-3(2.5)MG/3ML NEB HHN SCH ×3 (02:18→14:41)
[2017-05-25] MEDS: HYDRALAZINE HCL 100MG TABLET PO SCH ×2 (05:37→15:06)
[2017-05-25] MEDS: BUDESONIDE 0.5MG/2ML NEB HHN SCH (08:35)
[2017-05-25] MEDS: CALCIUM CARBONATE/VITAMIN D3 500MG TABLET PO SCH (09:06)
[2017-05-25] MEDS: ENOXAPARIN 40MG/0.4ML SYR SUBCUT SCH (09:06)
[2017-05-25] MEDS: METHYLPREDNISOLONE SOD SUCC 40 MG/ML VIAL IV SCH ×2 (09:06→17:08)
[2017-05-25] MEDS: FERROUS SULFATE 325MG TABLET PO SCH (09:06)
[2017-05-25] MEDS: FUROSEMIDE 40MG TABLET PO SCH (09:07)
[2017-05-25] MEDS: AMLODIPINE 5MG TABLET PO SCH (09:07)
[2017-05-25] MEDS: HYDROCHLOROTHIAZIDE 50MG TABLET PO SCH (09:07)
[2017-05-25] MEDS: DOCUSATE SODIUM 100MG CAPSULE PO SCH ×2 (09:07→17:08)
[2017-05-25] MEDS: CARVEDILOL 3.125 MG TABLET PO SCH (09:07)
[2017-05-25] MEDS: LOSARTAN POTASSIUM 50 MG TABLET PO SCH (09:07)
[2017-05-25] MEDS: ASPIRIN 81MG EC TABLET PO SCH (09:07)
[2017-05-25] MEDS: NICOTINE 21MG PATCH TD SCH (09:08)
[2017-05-25] MEDS: HYDROCODONE/ACETAMINOPHEN 10/325MG TABLET PO PRN (10:03)
[2017-05-25] MEDS: MORPHINE SULFATE 4 MG/ML CPJ (NOT FOR IM USE) IV PRN (11:41)
[2017-05-25] MEDS: DIGOXIN 125MCG TABLET PO SCH (18:24)
== END 2017-05-25 21:10 | DRG 194 ==
LOC: ER 15:00 → 7WST 17:59 → EDBEDREQTM 18:02 → EDBEDREQ 18:02 → ENRESERV 19:31
PROVIDERS: ADMIT Hospitalist; ATTEND Hospitalist
DX: I11.0 Hypertensive heart disease with heart failure (principal); J96.00 Acute respiratory failure, unspecified whether with hypoxia or hypercapnia; E43 Unspecified severe protein-calorie malnutrition; Z99.81 Dependence on supplemental oxygen; R65.10 Systemic inflammatory response syndrome (SIRS) of non-infectious origin without acute organ dysfunction; J44.1 Chronic obstructive pulmonary disease with (acute) exacerbation; I50.23 Acute on chronic systolic (congestive) heart failure; I50.32 Chronic diastolic (congestive) heart failure; I25.10 Atherosclerotic heart disease of native coronary artery without angina pectoris; D72.829 Elevated white blood cell count, unspecified; E05.90 Thyrotoxicosis, unspecified without thyrotoxic crisis or storm; E78.5 Hyperlipidemia, unspecified; F32.9 Major depressive disorder, single episode, unspecified; F41.9 Anxiety disorder, unspecified; E78.00 Pure hypercholesterolemia, unspecified; F14.90 Cocaine use, unspecified, uncomplicated; F15.90 Other stimulant use, unspecified, uncomplicated; F17.210 Nicotine dependence, cigarettes, uncomplicated; I44.0 Atrioventricular block, first degree; Z96.643 Presence of artificial hip joint, bilateral; M19.90 Unspecified osteoarthritis, unspecified site; R63.4 Abnormal weight loss; Z68.21 Body mass index [BMI] 21.0-21.9, adult; Z88.0 Allergy status to penicillin; Z88.8 Allergy status to other drugs, medicaments and biological substances; Z79.82 Long term (current) use of aspirin; Z79.899 Other long term (current) drug therapy; Z90.49 Acquired absence of other specified parts of digestive tract; Z82.5 Family history of asthma and other chronic lower respiratory diseases; Z86.718 Personal history of other venous thrombosis and embolism; I25.2 Old myocardial infarction; Z87.891 Personal history of nicotine dependence; Z79.1 Long term (current) use of non-steroidal anti-inflammatories (NSAID)
CPT/HCPCS: 36415; 36600; 71010; 73521; 80048; 80053; 80162; 80305; 81003; 82375; 82550; 82805; 83605; 83690; 83880; 84443; 84484; 85025; 85610; 85730; 87040; 93005; 93970; 94640; 94664; 96365; 96366; 96375; 97116; 97162; 99285; C1893; J1650; J1940; J1956; J2270; J2920; J2930; J3105; J7512; J7620; J7626

== ENCOUNTER 2017-11-29 03:56 | Inpatient (IN) | payer MEDICARE, MEDICAID ==
[~2017-11-29] VITALS: Ht 182.9 cm; Wt 73.0 kg
[~2017-11-29 03:56] MED LIST changes: +ALBU18HF2 IH; -ALPR1TAB2 PO; +ATROV IH; +BENA20TA3 PO; -DOC-Q-LACE PO; +DOXA8TAB2 PO; +FERR325T6 PO; -HYDR-4133 PO; +HYDR100T26 PO; -OMEP20TA2 PO; -OYSTER SHELL CALCIUM PO; +PANT40TA4 PO; -ZOLP5TAB8 PO
[2017-11-29] MEDS ORDERED: ONDANSETRON HCL 4MG/2ML VIAL IV STA (04:22)
[2017-11-29] MEDS ORDERED: MORPHINE SULFATE 4 MG/ML CPJ (NOT FOR IM USE) IV STA (04:22)
[2017-11-29] MEDS ORDERED: NITROGLYCERIN OINT 1GM/INCH UDPKT TD ONE (04:30)
[2017-11-29] MEDS ORDERED: FUROSEMIDE 40MG/4ML VIAL IV ONE (04:30)
[2017-11-29 05:06] LABS: HEMOGLOBIN. 9.8 g/dL (12.0-16.0); MEAN CORPUSCULAR HEMOGLOBIN 27.9 pg (28.0-32.0); MEAN CORPUSCULAR VOLUME 85.5 fL (81.0-99.0); MEAN PLATELET VOLUME 7.6 fl (7.4-10.4); PLATELET 210 x1000/uL (130-400); RED CELL DISTRIBUTION WIDTH 15.2 % (11.6-14.6)
[2017-11-29 05:10] LABS: CHLORIDE 107 mEq/L (98-107)
[2017-11-29 06:59] LABS: PLATELET ESTIMATE NORMAL
[2017-11-29] MEDS ORDERED: ONDANSETRON HCL 4MG/2ML VIAL IV PRN (07:00)
[2017-11-29] MEDS ORDERED: ACETAMINOPHEN 325MG TABLET PO PRN (07:00)
[2017-11-29] MEDS ORDERED: DOCUSATE SODIUM 100MG CAPSULE PO PRN (07:00)
[2017-11-29] MEDS ORDERED: LORAZEPAM 2MG/ML CPJ IV PRN (07:00)
[2017-11-29] MEDS ORDERED: GUAIFENESIN 200MG/10ML SUGAR FREE UDC PO PRN (07:00)
[2017-11-29] MEDS ORDERED: DIPHENHYDRAMINE 50MG/ML VIAL IV PRN (07:00)
[2017-11-29] MEDS ORDERED: NA PHOS,M-B/NA PHOS,DI-BA ENEMA 118ML PR PRN (07:00)
[2017-11-29] MEDS ORDERED: MAGNESIUM/ALUMINUM HYDROXIDE/SIMETHICONE 30ML UDC PO PRN (07:00)
[2017-11-29 07:43] LABS: CHLORIDE 104 mEq/L (98-107)
[2017-11-29 10:15] VITALS: BP 140/71
[2017-11-29] MEDS: ENOXAPARIN 40MG/0.4ML SYR SUBCUT SCH (10:30)
[2017-11-29] MEDS: ASPIRIN 81MG EC TABLET PO SCH (11:09)
[2017-11-29] MEDS: MORPHINE SULFATE 4 MG/ML CPJ (NOT FOR IM USE) IV PRN ×2 (11:10→18:50)
[2017-11-29 12:00] VITALS: BP 120/57
[2017-11-29] MEDS: IPRATROPIUM/ALBUTEROL 0.5-3(2.5)MG/3ML NEB INH PRN ×2 (13:57→18:59)
[2017-11-29 14:00] VITALS: BP 145/62
[2017-11-29] MEDS ORDERED: BENAZEPRIL 20MG TABLET PO SCH (15:00)
[2017-11-29 16:00] VITALS: BP 154/64
[2017-11-29] MEDS: HYDRALAZINE HCL 100MG TABLET PO SCH ×2 (16:12→23:00)
[2017-11-29] MEDS ORDERED: DOXAZOSIN MESYLATE PO SCH (17:00)
[2017-11-29] MEDS: DIGOXIN 125MCG TABLET PO SCH (17:40)
[2017-11-29] MEDS: FERROUS SULFATE 325MG TABLET PO SCH (17:40)
[2017-11-29 18:50] VITALS: BP 147/74
[2017-11-29] MEDS: HYDROCODONE/ACETAMINOPHEN 10/325MG TABLET PO PRN (19:48)
[2017-11-29 20:30] VITALS: BP 106/49
[2017-11-29] MEDS ORDERED: MORPHINE SULFATE 4 MG/ML CPJ (NOT FOR IM USE) IV NR (20:45)
[2017-11-29] MEDS: CARVEDILOL 3.125 MG TABLET PO SCH (20:53)
[2017-11-29] MEDS: AMLODIPINE 5MG TABLET PO SCH (20:53)
[2017-11-29] MEDS: DOXAZOSIN MESYLATE 4MG TABLET PO SCH (20:53)
[2017-11-29] MEDS ORDERED: FUROSEMIDE 40MG/4ML VIAL IVP NR (21:00)
[2017-11-30] VITALS (8 sets, daily range): BP systolic 103–156; BP diastolic 58–77
[2017-11-30] MEDS: MORPHINE SULFATE 4 MG/ML CPJ (NOT FOR IM USE) IV PRN ×4 (01:06→20:39)
[2017-11-30] MEDS: DIAZEPAM 5 MG TABLET PO PRN ×2 (02:35→23:08)
[2017-11-30] MEDS: IPRATROPIUM/ALBUTEROL 0.5-3(2.5)MG/3ML NEB HHN SCH ×3 (04:17→11:28)
[2017-11-30] MEDS: HYDRALAZINE HCL 100MG TABLET PO SCH ×3 (06:39→23:00)
[2017-11-30 07:30] LABS: CHLORIDE 100 mEq/L (98-107)
[2017-11-30 07:35] LABS: HEMATOCRIT. 24.2 % (36.0-48.0); MEAN CORPUSCULAR HEMOGLOBIN 28.3 pg (28.0-32.0); MEAN PLATELET VOLUME 7.5 fl (7.4-10.4); PLATELET 190 x1000/uL (130-400); RED BLOOD CELL COUNT 2.82 mill/uL (4.2-5.4); RED CELL DISTRIBUTION WIDTH 15.3 % (11.6-14.6)
[2017-11-30] MEDS: FERROUS SULFATE 325MG TABLET PO SCH ×2 (07:44→17:38)
[2017-11-30] MEDS: CALCIUM CARBONATE/VITAMIN D3 500MG TABLET PO SCH (07:44)
[2017-11-30 07:46] LABS: HDL CHOLESTEROL 69 mg/dL (40-59); LDL CHOLESTEROL 45 mg/dL (5-100); T4 FREE 1.01 ng/dL (0.76-1.46)
[2017-11-30] MEDS: HYDROCODONE/ACETAMINOPHEN 10/325MG TABLET PO PRN ×2 (07:47→22:35)
[2017-11-30] MEDS: ENOXAPARIN 40MG/0.4ML SYR SUBCUT SCH (09:00)
[2017-11-30] MEDS: ASPIRIN 81MG EC TABLET PO SCH (09:11)
[2017-11-30] MEDS: DILTIAZEM HCL 240MG ER (24HR) PO SCH (09:12)
[2017-11-30] MEDS: CARVEDILOL 3.125 MG TABLET PO SCH ×2 (09:13→21:00)
[2017-11-30] MEDS: AMLODIPINE 5MG TABLET PO SCH ×2 (09:14→21:00)
[2017-11-30] MEDS: DOXAZOSIN MESYLATE 4MG TABLET PO SCH ×2 (09:15→21:00)
[2017-11-30] MEDS: BENAZEPRIL 20MG TABLET PO SCH (09:15)
[2017-11-30] MEDS: FUROSEMIDE 40MG TABLET PO SCH (09:15)
[2017-11-30 12:42] LABS: PLATELET ESTIMATE NORMAL
[2017-11-30] MEDS ORDERED: IPRATROPIUM BROMIDE (0.02%) 0.5MG/2.5ML NEB HHN PRN (16:00)
[2017-11-30] MEDS: IPRATROPIUM BROMIDE (0.02%) 0.5MG/2.5ML NEB HHN SCH ×2 (16:16→21:38)
[2017-11-30] MEDS: DIGOXIN 125MCG TABLET PO SCH (17:38)
[2017-12-01] VITALS: BP 130/61
[2017-12-01] MEDS: HYDRALAZINE HCL 100MG TABLET PO SCH ×3 (00:37→15:00)
[2017-12-01] MEDS: MORPHINE SULFATE 4 MG/ML CPJ (NOT FOR IM USE) IV PRN (00:47)
[2017-12-01] MEDS: IPRATROPIUM BROMIDE (0.02%) 0.5MG/2.5ML NEB HHN SCH ×2 (03:41→08:41)
[2017-12-01 04:00] VITALS: BP 115/69
[2017-12-01 07:34] LABS: HEMATOCRIT 24.3 % (36.0-48.0); HEMOGLOBIN 8.1 g/dL (12.0-16.0); MEAN CORPUSCULAR HEMOGLOBIN 28.3 pg (28.0-32.0); MEAN CORPUSCULAR VOLUME 85.4 fL (81.0-99.0); PLATELET 199 x1000/uL (130-400); RED BLOOD CELL COUNT 2.84 mill/uL (4.2-5.4); RED CELL DISTRIBUTION WIDTH 15.5 % (11.6-14.6)
[2017-12-01 08:00] VITALS: BP 137/64
[2017-12-01] MEDS: ENOXAPARIN 40MG/0.4ML SYR SUBCUT SCH (09:00)
[2017-12-01] MEDS: CALCIUM CARBONATE/VITAMIN D3 500MG TABLET PO SCH (09:31)
[2017-12-01] MEDS: DILTIAZEM HCL 240MG ER (24HR) PO SCH (09:31)
[2017-12-01] MEDS: FUROSEMIDE 40MG TABLET PO SCH (09:31)
[2017-12-01] MEDS: ASPIRIN 81MG EC TABLET PO SCH (09:32)
[2017-12-01] MEDS: BENAZEPRIL 20MG TABLET PO SCH (09:32)
[2017-12-01] MEDS: AMLODIPINE 5MG TABLET PO SCH (09:32)
[2017-12-01] MEDS: FERROUS SULFATE 325MG TABLET PO SCH (09:32)
[2017-12-01] MEDS: CARVEDILOL 3.125 MG TABLET PO SCH (09:32)
[2017-12-01] MEDS: HYDROCODONE/ACETAMINOPHEN 10/325MG TABLET PO PRN (09:36)
[2017-12-01 12:00] VITALS: BP 155/74
[2017-12-01 14:34] VITALS: BP 155/74
[2017-12-01] MEDS: DOXAZOSIN MESYLATE 4MG TABLET PO SCH (15:00)
== END 2017-12-01 18:21 | disposition home or self-care (01) | DRG 133 ==
LOC: ER 05:34 → EDBEDREQ 05:40 → EDBEDREQTM 05:40 → ENRESERV 07:09 → 7WST 07:09
PROVIDERS: ADMIT Internal Medicine; ATTEND Internal Medicine
DX: J96.00 Acute respiratory failure, unspecified whether with hypoxia or hypercapnia (principal); E44.0 Moderate protein-calorie malnutrition; I11.0 Hypertensive heart disease with heart failure; I50.9 Heart failure, unspecified; D64.9 Anemia, unspecified; I48.91 Unspecified atrial fibrillation; J44.9 Chronic obstructive pulmonary disease, unspecified; I47.1 Supraventricular tachycardia; Z99.81 Dependence on supplemental oxygen; F41.9 Anxiety disorder, unspecified; I25.10 Atherosclerotic heart disease of native coronary artery without angina pectoris; J45.909 Unspecified asthma, uncomplicated; Z96.643 Presence of artificial hip joint, bilateral; I50.32 Chronic diastolic (congestive) heart failure; F17.210 Nicotine dependence, cigarettes, uncomplicated; Z79.82 Long term (current) use of aspirin; Z82.5 Family history of asthma and other chronic lower respiratory diseases; Z79.899 Other long term (current) drug therapy; Z90.721 Acquired absence of ovaries, unilateral; Z90.49 Acquired absence of other specified parts of digestive tract; Z88.0 Allergy status to penicillin; Z88.1 Allergy status to other antibiotic agents; Z88.8 Allergy status to other drugs, medicaments and biological substances; Z82.49 Family history of ischemic heart disease and other diseases of the circulatory system
CPT/HCPCS: 36415; 71045; 78582; 80048; 80053; 80061; 83880; 84439; 84443; 84484; 85025; 85027; 93005; 94640; 94664; A9558; C1893; J1650; J1940; J2060; J2270; J2405; J7620

== ENCOUNTER 2018-08-31 21:40 | Inpatient (IN) | payer MEDICARE, MEDICAID ==
[~2018-08-31] VITALS: Ht 182.9 cm; Wt 73.5 kg
[~2018-08-31 21:40] MED LIST changes: +BENA20TA10 PO; -BENA20TA3 PO; +DIPH25CA83 PO; -FERR325T23 PO; -HYDR-519 PO; +LISI-604 PO; -LOSA50TA20 PO; -METH4TAB17 PO; -NICO-682 TD
[2018-08-31] MEDS ORDERED: DILTIAZEM HCL 5MG/ML 5ML VIAL IV ONE (22:00)
[2018-08-31] MEDS ORDERED: SODIUM CHLORIDE 0.9% 1,000 ML IV ONE (22:00)
[2018-08-31 23:43] LABS: CHLORIDE 101 mEq/L (98-107)
[2018-08-31 23:45] LABS: EOSINOPHILS % 1.4 % (0.0-5.0); HEMATOCRIT. 37.9 % (36.0-48.0); HEMOGLOBIN. 11.7 g/dL (12.0-16.0); INR 1.1; LYMPHOCYTES % 17.9 % (20.0-50.0); MEAN CORPUSCULAR HEMOGLOBIN 24.3 pg (28.0-32.0); MEAN PLATELET VOLUME 7.9 fl (7.4-10.4); MONOCYTES % 9.1 % (2.0-8.0); NEUTROPHILS % 70.6 % (40.0-76.0); PARTIAL THROMBOPLASTIN TIME 29.7 sec (23.4-31.0); PLATELET 253 x1000/uL (130-400); PROTHROMBIN TIME 11.3 sec (9.1-11.1); RED CELL DISTRIBUTION WIDTH 16.9 % (11.6-14.6)
[2018-08-31] MEDS ORDERED: DILTIAZEM HCL 120MG CAPSULE CD 24HR PO NR (23:45)
[2018-08-31] MEDS ORDERED: DILTIAZEM HCL 5MG/ML 5ML VIAL IV NR (23:45)
[2018-08-31] MEDS ORDERED: DILTIAZEM HCL 120MG CAPSULE SR 12HR PO ONE (23:45)
[2018-09-01] MEDS ORDERED: MORPHINE SULFATE 10 MG/ML CPJ IV NR
[2018-09-01 00:37] LABS: DIGOXIN 0.5 ng/mL (0.9-2.0)
[2018-09-01] MEDS ORDERED: CLONIDINE 0.1MG TABLET PO PRN (01:00)
[2018-09-01] MEDS ORDERED: POTASSIUM CHLORIDE 20MEQ TABLET SR PO NR ×2 (01:00→18:30)
[2018-09-01] MEDS ORDERED: MAGNESIUM/ALUMINUM HYDROXIDE/SIMETHICONE 30ML UDC PO PRN (01:00)
[2018-09-01] MEDS ORDERED: DIPHENHYDRAMINE 50MG/ML VIAL IV PRN (01:00)
[2018-09-01] MEDS ORDERED: ACETAMINOPHEN 325MG TABLET PO PRN (01:00)
[2018-09-01] MEDS ORDERED: ONDANSETRON HCL 4MG/2ML INJ IV PRN (01:00)
[2018-09-01] MEDS ORDERED: ASPIRIN 325MG EC TABLET PO NR (01:00)
[2018-09-01] MEDS ORDERED: GUAIFENESIN 200MG/10ML SUGAR FREE UDC PO PRN (01:00)
[2018-09-01] MEDS ORDERED: POTASSIUM CHLORIDE 20MEQ TABLET SR PO SCH (05:15)
[2018-09-01] MEDS ORDERED: MAGNESIUM 2 G PREMIX 50 ML IV SCH ×2 (05:15→12:15)
[2018-09-01] MEDS: IPRATROPIUM/ALBUTEROL 0.5-3(2.5)MG/3ML NEB INH PRN ×3 (05:38→22:14)
[2018-09-01 09:59] VITALS: BP 142/66
[2018-09-01] MEDS: DILTIAZEM HCL 120MG CAPSULE CD 24HR PO SCH (10:01)
[2018-09-01 10:05] VITALS: BP 142/66
[2018-09-01 12:00] VITALS: BP_SYST 145; BP_SYST 164; BP_DIAS 60; BP_DIAS 82
[2018-09-01] MEDS: ENOXAPARIN 40MG/0.4ML SYR SUBCUT SCH (12:00)
[2018-09-01] MEDS: FERROUS SULFATE 325MG TABLET PO SCH ×3 (12:15→18:16)
[2018-09-01] MEDS: BENAZEPRIL 10MG TABLET PO SCH (12:35)
[2018-09-01] MEDS ORDERED: INFLUENZA VIRUS VACCINE(AFLURIA) 0.5ML SYR IM ONE (13:00)
[2018-09-01] MEDS: SODIUM CHLORIDE 0.9% INJ 3ML FLUSH IVF SCH ×2 (15:25→22:01)
[2018-09-01] MEDS: DIAZEPAM 5 MG TABLET PO PRN (15:28)
[2018-09-01 16:00] VITALS: BP 140/60
[2018-09-01] MEDS: DIGOXIN 125MCG TABLET PO SCH (18:15)
[2018-09-01 20:00] VITALS: BP 150/65
[2018-09-02] VITALS: BP 159/78
[2018-09-02 04:00] VITALS: BP 150/68
[2018-09-02] MEDS: IPRATROPIUM/ALBUTEROL 0.5-3(2.5)MG/3ML NEB INH PRN ×4 (04:10→20:53)
[2018-09-02] MEDS: SODIUM CHLORIDE 0.9% INJ 3ML FLUSH IVF SCH ×3 (05:26→22:42)
[2018-09-02 07:52] LABS: CHLORIDE 106 mEq/L (98-107)
[2018-09-02 08:00] VITALS: BP 161/64
[2018-09-02] MEDS: ENOXAPARIN 40MG/0.4ML SYR SUBCUT SCH (08:47)
[2018-09-02] MEDS: BENAZEPRIL 10MG TABLET PO SCH (08:47)
[2018-09-02] MEDS: DILTIAZEM HCL 120MG CAPSULE CD 24HR PO SCH (08:47)
[2018-09-02] MEDS: FERROUS SULFATE 325MG TABLET PO SCH ×3 (08:47→17:35)
[2018-09-02] MEDS: HYDROCODONE/APAP 7.5/325MG 1 TAB TABLET PO PRN ×2 (10:22→17:36)
[2018-09-02 12:00] VITALS: BP 169/82
[2018-09-02] MEDS: DIAZEPAM 5 MG TABLET PO PRN (14:39)
[2018-09-02 16:00] VITALS: BP 154/73
[2018-09-02] MEDS ORDERED: IBUPROFEN 600MG TABLET PO PRN (17:15)
[2018-09-02] MEDS: DIGOXIN 125MCG TABLET PO SCH (17:36)
[2018-09-02] MEDS: ASPIRIN 81MG TABLET PO SCH (18:35)
[2018-09-02 20:00] VITALS: BP 169/72
[2018-09-03] VITALS: BP 160/61
[2018-09-03] MEDS: IPRATROPIUM/ALBUTEROL 0.5-3(2.5)MG/3ML NEB INH PRN ×4 (01:03→16:20)
[2018-09-03] MEDS: HYDROCODONE/APAP 7.5/325MG 1 TAB TABLET PO PRN ×2 (02:25→13:10)
[2018-09-03 04:00] VITALS: BP 185/76
[2018-09-03] MEDS: FERROUS SULFATE 325MG TABLET PO SCH ×3 (06:40→17:33)
[2018-09-03] MEDS: SODIUM CHLORIDE 0.9% INJ 3ML FLUSH IVF SCH ×2 (06:40→13:10)
[2018-09-03 08:00] VITALS: BP 173/74
[2018-09-03] MEDS: DILTIAZEM HCL 120MG CAPSULE CD 24HR PO SCH (08:45)
[2018-09-03] MEDS: ENOXAPARIN 40MG/0.4ML SYR SUBCUT SCH (08:45)
[2018-09-03] MEDS: ASPIRIN 81MG TABLET PO SCH (08:45)
[2018-09-03] MEDS: BENAZEPRIL 10MG TABLET PO SCH ×2 (08:45→17:33)
[2018-09-03 12:00] VITALS: BP 163/77
[2018-09-03 16:00] VITALS: BP 158/79
[2018-09-03] MEDS: DIGOXIN 125MCG TABLET PO SCH (17:33)
[2018-09-03 18:06] VITALS: BP 158/79
== END 2018-09-03 19:01 | disposition home or self-care (01) | DRG 201 ==
LOC: ER 21:52 → 5WST 09-01 00:59 → EDBEDREQTM 09-01 01:02 → EDBEDREQ 09-01 01:02 → EDBEDREQDT 09-01 01:02 → ENRESERV 09-01 07:00 → 5WST 09-01 18:25
PROVIDERS: ADMIT Internal Medicine; ATTEND Internal Medicine
DX: I47.1 Supraventricular tachycardia (principal); I11.0 Hypertensive heart disease with heart failure; I48.0 Paroxysmal atrial fibrillation; I48.92 Unspecified atrial flutter; I50.30 Unspecified diastolic (congestive) heart failure; E44.1 Mild protein-calorie malnutrition; E83.42 Hypomagnesemia; E87.6 Hypokalemia; F17.200 Nicotine dependence, unspecified, uncomplicated; F41.1 Generalized anxiety disorder; G89.29 Other chronic pain; Z87.19 Personal history of other diseases of the digestive system; M25.559 Pain in unspecified hip; J44.9 Chronic obstructive pulmonary disease, unspecified; Z96.643 Presence of artificial hip joint, bilateral; Z82.49 Family history of ischemic heart disease and other diseases of the circulatory system; Z90.89 Acquired absence of other organs; Z79.899 Other long term (current) drug therapy; Z88.1 Allergy status to other antibiotic agents; Z88.0 Allergy status to penicillin; I25.2 Old myocardial infarction
CPT/HCPCS: 36415; 71045; 80048; 80051; 80162; 83735; 83880; 84439; 84443; 84484; 93005; 93306; 94640; 96361; 96374; 96375; 99291; J1650; J2270; J3475; J3490; J7030; J7050; J7620

== ENCOUNTER 2018-10-03 15:23 | Inpatient (IN) | payer MEDICARE, MEDICAID ==
[~2018-10-03] VITALS: Ht 182.9 cm; Wt 72.6 kg
[~2018-10-03 15:23] MED LIST changes: -AMLO5TAB88 PO
[2018-10-03] MEDS ORDERED: ALBUTEROL (0.083%) 2.5MG/3ML NEB HHN STA (16:06)
[2018-10-03] MEDS ORDERED: IPRATROPIUM BROMIDE (0.02%) 0.5MG/2.5ML NEB HHN STA (16:06)
[2018-10-03] MEDS ORDERED: METHYLPREDNISOLONE SOD SUCC 125 MG/2 ML VIAL IV STA (16:06)
[2018-10-03 16:55] LABS: EOSINOPHILS % 1.5 % (0.0-5.0); HEMATOCRIT. 42.5 % (36.0-48.0); HEMOGLOBIN. 13.2 g/dL (12.0-16.0); LYMPHOCYTES % 20.6 % (20.0-50.0); MEAN CORPUSCULAR HEMOGLOBIN 25.6 pg (28.0-32.0); MEAN CORPUSCULAR VOLUME 82.3 fL (81.0-99.0); MEAN PLATELET VOLUME 7.2 fl (7.4-10.4); MONOCYTES % 9.9 % (2.0-8.0); PLATELET 318 x1000/uL (130-400); RED BLOOD CELL COUNT 5.16 mill/uL (4.2-5.4); RED CELL DISTRIBUTION WIDTH 18.7 % (11.6-14.6)
[2018-10-03 17:00] LABS: CLARITY URINE CLEAR (CLEAR); COLOR URINE YELLOW (YELLOW); KETONES URINE NEGATIVE (NEGATIVE); LEUKOCYTE ESTERASE URINE NEGATIVE (NEGATIVE); NITRITE URINE NEGATIVE (NEGATIVE); OCCULT BLOOD URINE NEGATIVE (NEGATIVE); PROTEIN URINE TRACE (NEGATIVE); SPECIFIC GRAVITY URINE 1.011 (1.005-1.030); UROBILINOGEN URINE 0.2 E.U./dL (0.2-1.0)
[2018-10-03 17:02] LABS: CHLORIDE 105 mEq/L (98-107)
[2018-10-03 17:28] LABS: DIGOXIN 0.9 ng/mL (0.9-2.0)
[2018-10-03] MEDS ORDERED: MAGNESIUM/ALUMINUM HYDROXIDE/SIMETHICONE 30ML UDC PO PRN (17:45)
[2018-10-03] MEDS ORDERED: DOCUSATE SODIUM 100MG CAPSULE PO PRN (17:45)
[2018-10-03] MEDS ORDERED: NA PHOS,M-B/NA PHOS,DI-BA ENEMA 118ML PR PRN (17:45)
[2018-10-03] MEDS ORDERED: ONDANSETRON HCL 4MG/2ML INJ IV PRN (17:45)
[2018-10-03] MEDS ORDERED: IPRATROPIUM/ALBUTEROL 0.5-3(2.5)MG/3ML NEB INH PRN (17:45)
[2018-10-03] MEDS ORDERED: CLONIDINE 0.1MG TABLET PO PRN (17:45)
[2018-10-03] MEDS ORDERED: MORPHINE SULFATE 4 MG/ML CPJ (NOT FOR IM USE) IV PRN (17:45)
[2018-10-03] MEDS ORDERED: ACETAMINOPHEN 325MG TABLET PO PRN (17:45)
[2018-10-03] MEDS ORDERED: GUAIFENESIN 200MG/10ML SUGAR FREE UDC PO PRN (17:45)
[2018-10-03] MEDS ORDERED: LORAZEPAM 0.5MG TABLET PO PRN (17:45)
[2018-10-03] MEDS ORDERED: ENOXAPARIN 40MG/0.4ML SYR SUBCUT NR (18:00)
[2018-10-03] MEDS ORDERED: ASPIRIN 325MG EC TABLET PO NR (19:31)
[2018-10-03] MEDS: HYDROCODONE/ACETAMINOPHEN 10/325MG TABLET PO PRN (19:58)
[2018-10-03 20:45] VITALS: BP 170/86
[2018-10-03 22:00] LABS: CHLORIDE 105 mEq/L (98-107)
[2018-10-03] MEDS: ENOXAPARIN 40MG/0.4ML SYR SUBCUT SCH (22:52)
[2018-10-03] MEDS ORDERED: HYDRALAZINE 20MG/ML VIAL IV PRN (23:00)
[2018-10-04] VITALS (7 sets, daily range): BP systolic 120–202; BP diastolic 72–89
[2018-10-04] MEDS: DIPHENHYDRAMINE 50MG/ML VIAL IV PRN (05:48)
[2018-10-04 07:01] LABS: BASOPHILS % 0.1 % (0.0-2.0); HEMATOCRIT. 38.1 % (36.0-48.0); HEMOGLOBIN. 12.1 g/dL (12.0-16.0); MEAN CORPUSCULAR HEMOGLOBIN 25.9 pg (28.0-32.0); MEAN PLATELET VOLUME 7.5 fl (7.4-10.4); MONOCYTES % 0.7 % (2.0-8.0); NEUTROPHILS % 85.2 % (40.0-76.0); PLATELET 283 x1000/uL (130-400); RED BLOOD CELL COUNT 4.65 mill/uL (4.2-5.4); RED CELL DISTRIBUTION WIDTH 18.9 % (11.6-14.6)
[2018-10-04 07:30] LABS: CHLORIDE 103 mEq/L (98-107)
[2018-10-04 07:37] LABS: LDL CHOLESTEROL 67 mg/dL (5-100)
[2018-10-04 07:39] LABS: HDL CHOLESTEROL 77 mg/dL (40-59)
[2018-10-04 07:44] LABS: T4 FREE 1.59 ng/dL (0.76-1.46)
[2018-10-04] MEDS: FUROSEMIDE 40MG/4ML VIAL IV SCH ×2 (08:37→18:10)
[2018-10-04] MEDS: DILTIAZEM HCL 120MG CAPSULE CD 24HR PO SCH (08:38)
[2018-10-04] MEDS: BENAZEPRIL 10MG TABLET PO SCH ×2 (08:38→21:43)
[2018-10-04] MEDS: DOXAZOSIN MESYLATE 4MG TABLET PO SCH ×2 (08:38→18:10)
[2018-10-04] MEDS: ASPIRIN 81MG EC TABLET PO SCH (08:38)
[2018-10-04] MEDS: CARVEDILOL 3.125 MG TABLET PO SCH ×2 (08:38→21:43)
[2018-10-04] MEDS ORDERED: LISINOPRIL 20MG TABLET PO SCH (09:00)
[2018-10-04] MEDS ORDERED: IPRATROPIUM BROMIDE (0.02%) 0.5MG/2.5ML NEB HHN PRN (11:30)
[2018-10-04] MEDS: HYDROCODONE/ACETAMINOPHEN 10/325MG TABLET PO PRN ×3 (12:12→21:45)
[2018-10-04] MEDS: IPRATROPIUM BROMIDE (0.02%) 0.5MG/2.5ML NEB HHN SCH ×2 (12:45→20:56)
[2018-10-04 14:57] LABS: *AMPHETAMINES SCREEN URINE NEGATIVE (NEGATIVE); *BARBITURATES SCREEN URINE NEGATIVE (NEGATIVE); *BENZODIAZEPINES SCREEN URINE PRESUMTIVE POSITIVE (NEGATIVE); *COCAINE SCREEN URINE NEGATIVE (NEGATIVE); METHADONE URINE SCREEN NEGATIVE (NEGATIVE)
[2018-10-04 14:58] LABS: CANNABINOID URINE SCREEN NEGATIVE (NEGATIVE); OPIATES URINE SCREEN NEGATIVE (NEGATIVE); PHENCYCLIDINE URINE SCREEN NEGATIVE (NEGATIVE)
[2018-10-04] MEDS: DIGOXIN 125MCG TABLET PO SCH (18:10)
[2018-10-04] MEDS: BUDESONIDE 0.5MG/2ML NEB HHN SCH (20:57)
[2018-10-04] MEDS: ENOXAPARIN 40MG/0.4ML SYR SUBCUT SCH (21:47)
[2018-10-05] VITALS (8 sets, daily range): BP systolic 131–175; BP diastolic 62–79
[2018-10-05] MEDS: IPRATROPIUM BROMIDE (0.02%) 0.5MG/2.5ML NEB HHN SCH ×6 (01:03→23:23)
[2018-10-05] MEDS: DIAZEPAM 5 MG TABLET PO PRN ×2 (02:44→18:37)
[2018-10-05] MEDS: FUROSEMIDE 40MG/4ML VIAL IV SCH ×2 (06:19→16:34)
[2018-10-05] MEDS: DOXAZOSIN MESYLATE 4MG TABLET PO SCH ×2 (08:41→16:34)
[2018-10-05] MEDS: DILTIAZEM HCL 120MG CAPSULE CD 24HR PO SCH (08:41)
[2018-10-05] MEDS: BENAZEPRIL 10MG TABLET PO SCH ×2 (08:42→21:14)
[2018-10-05] MEDS: CARVEDILOL 3.125 MG TABLET PO SCH ×2 (08:42→21:15)
[2018-10-05] MEDS: ASPIRIN 81MG EC TABLET PO SCH (08:42)
[2018-10-05] MEDS: BUDESONIDE 0.5MG/2ML NEB HHN SCH ×2 (09:08→20:30)
[2018-10-05] MEDS: HYDROCODONE/ACETAMINOPHEN 10/325MG TABLET PO PRN (16:34)
[2018-10-05] MEDS: DIGOXIN 125MCG TABLET PO SCH (18:37)
[2018-10-05] MEDS: ENOXAPARIN 40MG/0.4ML SYR SUBCUT SCH (21:13)
[2018-10-05] MEDS: FERROUS SULFATE 325MG TABLET PO SCH (21:15)
[2018-10-06] VITALS (11 sets, daily range): BP systolic 118–163; BP diastolic 63–82
[2018-10-06] MEDS: DIPHENHYDRAMINE 50MG/ML VIAL IV PRN (00:50)
[2018-10-06] MEDS: IPRATROPIUM BROMIDE (0.02%) 0.5MG/2.5ML NEB HHN SCH ×5 (03:22→21:02)
[2018-10-06] MEDS: FUROSEMIDE 40MG/4ML VIAL IV SCH ×2 (06:23→17:46)
[2018-10-06 06:59] LABS: BASOPHILS % 0.1 % (0.0-2.0); HEMATOCRIT. 35.6 % (36.0-48.0); HEMOGLOBIN. 11.1 g/dL (12.0-16.0); LYMPHOCYTES % 24.2 % (20.0-50.0); MEAN CORPUSCULAR VOLUME 83.2 fL (81.0-99.0); MEAN PLATELET VOLUME 7.6 fl (7.4-10.4); MONOCYTES % 10.4 % (2.0-8.0); NEUTROPHILS % 63.3 % (40.0-76.0); PLATELET 244 x1000/uL (130-400); RED BLOOD CELL COUNT 4.28 mill/uL (4.2-5.4); RED CELL DISTRIBUTION WIDTH 18.3 % (11.6-14.6)
[2018-10-06 07:24] LABS: CHLORIDE 103 mEq/L (98-107)
[2018-10-06] MEDS: BUDESONIDE 0.5MG/2ML NEB HHN SCH ×3 (08:33→21:02)
[2018-10-06] MEDS: ASPIRIN 81MG EC TABLET PO SCH (09:32)
[2018-10-06] MEDS: DOXAZOSIN MESYLATE 4MG TABLET PO SCH ×2 (09:33→17:16)
[2018-10-06] MEDS: DILTIAZEM HCL 120MG CAPSULE CD 24HR PO SCH (09:34)
[2018-10-06] MEDS: CARVEDILOL 3.125 MG TABLET PO SCH ×2 (09:34→20:32)
[2018-10-06] MEDS: FERROUS SULFATE 325MG TABLET PO SCH ×2 (09:35→17:16)
[2018-10-06] MEDS: BENAZEPRIL 10MG TABLET PO SCH ×2 (09:35→20:32)
[2018-10-06] MEDS: DIAZEPAM 5 MG TABLET PO PRN ×2 (09:42→20:33)
[2018-10-06] MEDS: HYDROCODONE/ACETAMINOPHEN 10/325MG TABLET PO PRN ×3 (09:46→20:33)
[2018-10-06] MEDS ORDERED: PANTOPRAZOLE 40MG DR TABLET PO SCH (15:15)
[2018-10-06] MEDS: DIGOXIN 125MCG TABLET PO SCH (17:16)
[2018-10-06] MEDS: ENOXAPARIN 40MG/0.4ML SYR SUBCUT SCH (20:33)
[2018-10-07] MEDS: IPRATROPIUM BROMIDE (0.02%) 0.5MG/2.5ML NEB HHN SCH ×3 (01:00→09:14)
[2018-10-07] MEDS: DIPHENHYDRAMINE 50MG/ML VIAL IV PRN (01:41)
[2018-10-07 04:00] VITALS: BP 126/67
[2018-10-07] MEDS: FUROSEMIDE 40MG/4ML VIAL IV SCH ×2 (06:42→17:15)
[2018-10-07 07:12] LABS: HEMATOCRIT 37.1 % (36.0-48.0); HEMOGLOBIN 11.5 g/dL (12.0-16.0); MEAN CORPUSCULAR HEMOGLOBIN 25.8 pg (28.0-32.0); MEAN CORPUSCULAR VOLUME 83.1 fL (81.0-99.0); PLATELET 254 x1000/uL (130-400); RED BLOOD CELL COUNT 4.46 mill/uL (4.2-5.4); RED CELL DISTRIBUTION WIDTH 18.3 % (11.6-14.6)
[2018-10-07] MEDS ORDERED: LEVOTHYROXINE SODIUM 100MCG TABLET PO SCH (07:40)
[2018-10-07] MEDS ORDERED: PANTOPRAZOLE 40MG DR TABLET PO SCH (07:40)
[2018-10-07 07:54] LABS: CHLORIDE 102 mEq/L (98-107)
[2018-10-07 08:00] VITALS: BP 119/69
[2018-10-07 08:30] LABS: T4 FREE 1.29 ng/dL (0.76-1.46)
[2018-10-07] MEDS: CARVEDILOL 3.125 MG TABLET PO SCH (08:46)
[2018-10-07] MEDS: HYDROCODONE/ACETAMINOPHEN 10/325MG TABLET PO PRN (08:46)
[2018-10-07] MEDS: BENAZEPRIL 10MG TABLET PO SCH (08:46)
[2018-10-07] MEDS: DOXAZOSIN MESYLATE 4MG TABLET PO SCH ×2 (08:47→17:00)
[2018-10-07] MEDS: DILTIAZEM HCL 120MG CAPSULE CD 24HR PO SCH (08:47)
[2018-10-07] MEDS: FERROUS SULFATE 325MG TABLET PO SCH ×2 (08:47→17:00)
[2018-10-07] MEDS: BUDESONIDE 0.5MG/2ML NEB HHN SCH (09:15)
[2018-10-07 12:00] VITALS: BP 113/68
[2018-10-07] MEDS: METHIMAZOLE 5MG TABLET PO SCH ×2 (13:24→16:58)
[2018-10-07] MEDS: ASPIRIN 81MG EC TABLET PO SCH (13:27)
[2018-10-07 16:00] VITALS: BP 133/73
== END 2018-10-07 17:26 | disposition home or self-care (01) | DRG 133 ==
LOC: ER 15:23 → 7WST 16:54 → ENRESERV 19:56
PROVIDERS: ADMIT Internal Medicine; ATTEND Internal Medicine
DX: J96.00 Acute respiratory failure, unspecified whether with hypoxia or hypercapnia (principal); I50.33 Acute on chronic diastolic (congestive) heart failure; R65.10 Systemic inflammatory response syndrome (SIRS) of non-infectious origin without acute organ dysfunction; I48.91 Unspecified atrial fibrillation; I11.0 Hypertensive heart disease with heart failure; E44.1 Mild protein-calorie malnutrition; I47.1 Supraventricular tachycardia; I50.32 Chronic diastolic (congestive) heart failure; Z99.81 Dependence on supplemental oxygen; J44.1 Chronic obstructive pulmonary disease with (acute) exacerbation; D64.9 Anemia, unspecified; I73.9 Peripheral vascular disease, unspecified; G89.29 Other chronic pain; I25.10 Atherosclerotic heart disease of native coronary artery without angina pectoris; E05.90 Thyrotoxicosis, unspecified without thyrotoxic crisis or storm; K21.9 Gastro-esophageal reflux disease without esophagitis; F41.9 Anxiety disorder, unspecified; F17.210 Nicotine dependence, cigarettes, uncomplicated; M19.90 Unspecified osteoarthritis, unspecified site; Z96.649 Presence of unspecified artificial hip joint; Z68.21 Body mass index [BMI] 21.0-21.9, adult; Z88.0 Allergy status to penicillin; Z88.1 Allergy status to other antibiotic agents; Z88.8 Allergy status to other drugs, medicaments and biological substances; I25.2 Old myocardial infarction; Z79.82 Long term (current) use of aspirin; Z79.899 Other long term (current) drug therapy
CPT/HCPCS: 36415; 71045; 80048; 80061; 80162; 80305; 83880; 84439; 84443; 84480; 84481; 84484; 85027; 87804; 93005; 94640; 96374; 96375; 99285; J0360; J1200; J1650; J1940; J2270; J2930; J7050; J7611; J7620; J7626

== ENCOUNTER 2018-10-26 11:12 | Inpatient (IN) | payer MEDICARE, MEDICAID ==
[~2018-10-26] VITALS: Ht 182.9 cm; Wt 74.8 kg
[2018-10-26 12:00] LABS: BASOPHILS % 1.3 % (0.0-2.0); EOSINOPHILS % 1.8 % (0.0-5.0); HEMATOCRIT. 40.7 % (36.0-48.0); HEMOGLOBIN. 12.9 g/dL (12.0-16.0); LYMPHOCYTES % 20.8 % (20.0-50.0); MEAN CORPUSCULAR HEMOGLOBIN 26.5 pg (28.0-32.0); MEAN CORPUSCULAR VOLUME 83.4 fL (81.0-99.0); MEAN PLATELET VOLUME 7.2 fl (7.4-10.4); NEUTROPHILS % 64.1 % (40.0-76.0); PLATELET 366 x1000/uL (130-400); RED BLOOD CELL COUNT 4.88 mill/uL (4.2-5.4); RED CELL DISTRIBUTION WIDTH 17.4 % (11.6-14.6)
[2018-10-26] MEDS ORDERED: FENTANYL CITRATE/PF 50MCG/ML 2ML VIAL IV ONE (12:00)
[2018-10-26] MEDS ORDERED: ASPIRIN 81MG TABLET PO ONE (12:00)
[2018-10-26] MEDS ORDERED: ONDANSETRON HCL 4MG/2ML INJ IV ONE (12:00)
[2018-10-26 12:05] LABS: CHLORIDE 105 mEq/L (98-107)
[2018-10-26 12:09] LABS: ETHANOL BLOOD < 10 mg/dL
[2018-10-26 12:15] LABS: PARTIAL THROMBOPLASTIN TIME 27.3 sec (23.4-31.0); PROTHROMBIN TIME 10.2 sec (9.1-11.1)
[2018-10-26] MEDS ORDERED: ONDANSETRON HCL 4MG/2ML INJ IV PRN (12:45)
[2018-10-26] MEDS ORDERED: NA PHOS,M-B/NA PHOS,DI-BA ENEMA 118ML PR PRN (12:45)
[2018-10-26] MEDS ORDERED: CLONIDINE 0.1MG TABLET PO PRN (12:45)
[2018-10-26] MEDS ORDERED: ACETAMINOPHEN 325MG TABLET PO PRN (12:45)
[2018-10-26] MEDS ORDERED: POTASSIUM CHLORIDE 20MEQ TABLET SR PO ONE (12:45)
[2018-10-26] MEDS ORDERED: LORAZEPAM 2MG/ML CPJ IV PRN ×2 (12:45→15:30)
[2018-10-26] MEDS ORDERED: GUAIFENESIN 200MG/10ML SUGAR FREE UDC PO PRN (12:45)
[2018-10-26] MEDS ORDERED: DIPHENHYDRAMINE 50MG/ML VIAL IV PRN (12:45)
[2018-10-26] MEDS ORDERED: MAGNESIUM/ALUMINUM HYDROXIDE/SIMETHICONE 30ML UDC PO PRN (12:45)
[2018-10-26] MEDS ORDERED: FUROSEMIDE 20MG/2ML VIAL IVP ONE (12:45)
[2018-10-26] MEDS ORDERED: MORPHINE SULFATE 4 MG/ML CPJ (NOT FOR IM USE) IV PRN (12:45)
[2018-10-26 15:43] LABS: *AMPHETAMINES SCREEN URINE NEGATIVE (NEGATIVE); *BARBITURATES SCREEN URINE NEGATIVE (NEGATIVE)
[2018-10-26 15:44] LABS: *BENZODIAZEPINES SCREEN URINE PRESUMTIVE POSITIVE (NEGATIVE); *COCAINE SCREEN URINE NEGATIVE (NEGATIVE); CANNABINOID URINE SCREEN NEGATIVE (NEGATIVE); METHADONE URINE SCREEN NEGATIVE (NEGATIVE); OPIATES URINE SCREEN NEGATIVE (NEGATIVE); PHENCYCLIDINE URINE SCREEN NEGATIVE (NEGATIVE)
[2018-10-26] MEDS: BUDESONIDE 0.5MG/2ML NEB HHN SCH (15:50)
[2018-10-26] MEDS: IPRATROPIUM BROMIDE (0.02%) 0.5MG/2.5ML NEB HHN SCH (15:50)
[2018-10-26 16:24] VITALS: BP 151/90
[2018-10-26 16:25] VITALS: BP 151/90
[2018-10-26] MEDS ORDERED: DOCUSATE SODIUM 100MG CAPSULE PO PRN (17:00)
[2018-10-26 17:56] VITALS: BP 147/99
[2018-10-26] MEDS: FUROSEMIDE 40MG/4ML VIAL IV SCH (18:09)
[2018-10-26] MEDS: METHIMAZOLE 5MG TABLET PO SCH (18:09)
[2018-10-26] MEDS: ENOXAPARIN 40MG/0.4ML SYR SUBCUT SCH (18:10)
[2018-10-26] MEDS: HYDROCODONE/ACETAMINOPHEN 10/325MG TABLET PO PRN ×2 (18:19→22:57)
[2018-10-26 19:14] LABS: CHLORIDE 104 mEq/L (98-107)
[2018-10-26 20:00] VITALS: BP 123/59
[2018-10-26 22:00] VITALS: BP 149/82
[2018-10-27] VITALS (13 sets, daily range): BP systolic 128–173; BP diastolic 65–104
[2018-10-27] MEDS: IPRATROPIUM/ALBUTEROL 0.5-3(2.5)MG/3ML NEB INH PRN ×2 (02:10→06:25)
[2018-10-27] MEDS ORDERED: PANTOPRAZOLE 40MG DR TABLET PO SCH (06:50)
[2018-10-27] MEDS: FUROSEMIDE 40MG/4ML VIAL IV SCH ×2 (07:15→16:08)
[2018-10-27 07:33] LABS: BASOPHILS % 0.9 % (0.0-2.0); EOSINOPHILS % 2.4 % (0.0-5.0); HEMATOCRIT. 35.5 % (36.0-48.0); HEMOGLOBIN. 11.2 g/dL (12.0-16.0); LYMPHOCYTES % 23.7 % (20.0-50.0); MEAN CORPUSCULAR HEMOGLOBIN 26.7 pg (28.0-32.0); MEAN CORPUSCULAR VOLUME 84.3 fL (81.0-99.0); MEAN PLATELET VOLUME 7.1 fl (7.4-10.4); MONOCYTES % 14.8 % (2.0-8.0); NEUTROPHILS % 58.2 % (40.0-76.0); PLATELET 317 x1000/uL (130-400); RED BLOOD CELL COUNT 4.21 mill/uL (4.2-5.4); RED CELL DISTRIBUTION WIDTH 17.1 % (11.6-14.6)
[2018-10-27 07:36] LABS: CHLORIDE 103 mEq/L (98-107)
[2018-10-27 07:55] LABS: LDL CHOLESTEROL 59 mg/dL (5-100)
[2018-10-27 07:56] LABS: HDL CHOLESTEROL 77 mg/dL (40-59); T4 FREE 1.01 ng/dL (0.76-1.46)
[2018-10-27] MEDS: METHIMAZOLE 5MG TABLET PO SCH ×3 (08:34→16:08)
[2018-10-27] MEDS: IPRATROPIUM BROMIDE (0.02%) 0.5MG/2.5ML NEB HHN SCH ×3 (08:54→16:12)
[2018-10-27] MEDS: BUDESONIDE 0.5MG/2ML NEB HHN SCH (08:55)
[2018-10-27] MEDS ORDERED: ASPIRIN 81MG EC TABLET PO SCH (09:00)
[2018-10-27] MEDS ORDERED: TAP5 MT (13:00)
[2018-10-27] MEDS: HYDRALAZINE HCL 100MG TABLET PO SCH ×2 (13:44→21:19)
[2018-10-27] MEDS: DIAZEPAM 5 MG TABLET PO PRN (13:44)
[2018-10-27] MEDS: DILTIAZEM HCL 120MG CAPSULE CD 24HR PO SCH (13:45)
[2018-10-27] MEDS: ENOXAPARIN 40MG/0.4ML SYR SUBCUT SCH (16:08)
[2018-10-27] MEDS: CALCIUM CARBONATE 500MG TABLET CHEW PO SCH (16:27)
[2018-10-27] MEDS: HYDROCODONE/ACETAMINOPHEN 10/325MG TABLET PO PRN ×2 (16:32→23:06)
[2018-10-27] MEDS: DIGOXIN 125MCG TABLET PO SCH (18:01)
[2018-10-27] MEDS ORDERED: METOPROLOL TARTRATE 25MG TABLET PO SCH (21:00)
[2018-10-27] MEDS: CARVEDILOL 3.125 MG TABLET PO SCH (21:19)
[2018-10-28] VITALS (13 sets, daily range): BP systolic 110–171; BP diastolic 53–111
[2018-10-28] MEDS: IPRATROPIUM BROMIDE (0.02%) 0.5MG/2.5ML NEB HHN SCH ×4 (05:00→19:29)
[2018-10-28] MEDS: HYDRALAZINE HCL 100MG TABLET PO SCH ×3 (06:22→21:12)
[2018-10-28] MEDS: PANTOPRAZOLE 40MG DR TABLET PO SCH (06:22)
[2018-10-28] MEDS: FUROSEMIDE 40MG/4ML VIAL IV SCH ×2 (06:23→16:58)
[2018-10-28 07:02] LABS: CHLORIDE 98 mEq/L (98-107)
[2018-10-28 07:06] LABS: BASOPHILS % 0.6 % (0.0-2.0); EOSINOPHILS % 3.7 % (0.0-5.0); HEMATOCRIT. 36.6 % (36.0-48.0); HEMOGLOBIN. 11.9 g/dL (12.0-16.0); LYMPHOCYTES % 30.6 % (20.0-50.0); MEAN CORPUSCULAR VOLUME 83.4 fL (81.0-99.0); MEAN PLATELET VOLUME 7.3 fl (7.4-10.4); MONOCYTES % 13.2 % (2.0-8.0); NEUTROPHILS % 51.9 % (40.0-76.0); PLATELET 315 x1000/uL (130-400); RED BLOOD CELL COUNT 4.39 mill/uL (4.2-5.4); RED CELL DISTRIBUTION WIDTH 16.9 % (11.6-14.6)
[2018-10-28] MEDS: IPRATROPIUM/ALBUTEROL 0.5-3(2.5)MG/3ML NEB INH PRN (08:55)
[2018-10-28] MEDS: BUDESONIDE 0.5MG/2ML NEB HHN SCH ×2 (08:56→19:29)
[2018-10-28] MEDS: ASPIRIN 81MG TABLET PO SCH (09:15)
[2018-10-28] MEDS: DILTIAZEM HCL 120MG CAPSULE CD 24HR PO SCH (09:15)
[2018-10-28] MEDS: DOCUSATE SODIUM 100MG CAPSULE PO SCH (09:16)
[2018-10-28] MEDS: CARVEDILOL 3.125 MG TABLET PO SCH ×2 (09:16→21:12)
[2018-10-28] MEDS: HYDROCODONE/ACETAMINOPHEN 10/325MG TABLET PO PRN (09:16)
[2018-10-28] MEDS: METHIMAZOLE 5MG TABLET PO SCH ×3 (09:17→16:58)
[2018-10-28] MEDS: CALCIUM CARBONATE 500MG TABLET CHEW PO SCH ×2 (09:23→16:58)
[2018-10-28] MEDS: DIGOXIN 125MCG TABLET PO SCH (16:58)
[2018-10-28] MEDS: ENOXAPARIN 40MG/0.4ML SYR SUBCUT SCH (17:07)
[2018-10-28] MEDS: DIAZEPAM 5 MG TABLET PO PRN (20:03)
[2018-10-29] VITALS (14 sets, daily range): BP systolic 104–156; BP diastolic 53–78
[2018-10-29] MEDS: IPRATROPIUM BROMIDE (0.02%) 0.5MG/2.5ML NEB HHN SCH ×5 (00:05→17:20)
[2018-10-29] MEDS: HYDROCODONE/ACETAMINOPHEN 10/325MG TABLET PO PRN ×3 (02:13→21:04)
[2018-10-29] MEDS: FUROSEMIDE 40MG/4ML VIAL IV SCH ×2 (06:15→17:17)
[2018-10-29] MEDS: PANTOPRAZOLE 40MG DR TABLET PO SCH (06:15)
[2018-10-29] MEDS: HYDRALAZINE HCL 100MG TABLET PO SCH ×3 (06:16→20:41)
[2018-10-29] MEDS: CARVEDILOL 3.125 MG TABLET PO SCH ×2 (08:10→20:40)
[2018-10-29] MEDS: DILTIAZEM HCL 120MG CAPSULE CD 24HR PO SCH (08:11)
[2018-10-29] MEDS: CALCIUM CARBONATE 500MG TABLET CHEW PO SCH ×2 (08:12→17:17)
[2018-10-29] MEDS: METHIMAZOLE 5MG TABLET PO SCH ×3 (08:12→17:17)
[2018-10-29] MEDS: ASPIRIN 81MG TABLET PO SCH (08:12)
[2018-10-29] MEDS: DOCUSATE SODIUM 100MG CAPSULE PO SCH (08:12)
[2018-10-29] MEDS: BUDESONIDE 0.5MG/2ML NEB HHN SCH (08:55)
[2018-10-29] MEDS ORDERED: NITROGLYCERIN 0.4MG TABLET SL SL PRN (10:30)
[2018-10-29] MEDS: FERROUS SULFATE 325MG TABLET PO SCH ×2 (13:20→17:17)
[2018-10-29] MEDS: DIGOXIN 125MCG TABLET PO SCH (17:17)
[2018-10-29] MEDS: ENOXAPARIN 40MG/0.4ML SYR SUBCUT SCH (17:17)
[2018-10-29] MEDS: DIAZEPAM 5 MG TABLET PO PRN (18:23)
[2018-10-30] VITALS (12 sets, daily range): BP systolic 101–149; BP diastolic 47–80
[2018-10-30] MEDS: IPRATROPIUM BROMIDE (0.02%) 0.5MG/2.5ML NEB HHN SCH ×6 (01:20→21:48)
[2018-10-30] MEDS: HYDRALAZINE HCL 100MG TABLET PO SCH ×3 (06:25→21:56)
[2018-10-30] MEDS: PANTOPRAZOLE 40MG DR TABLET PO SCH (06:25)
[2018-10-30] MEDS: FUROSEMIDE 40MG/4ML VIAL IV SCH ×2 (06:26→17:09)
[2018-10-30] MEDS: HYDROCODONE/ACETAMINOPHEN 10/325MG TABLET PO PRN ×3 (06:32→19:33)
[2018-10-30 06:56] LABS: HEMATOCRIT. 38.6 % (36.0-48.0); HEMOGLOBIN. 12.3 g/dL (12.0-16.0); MEAN CORPUSCULAR HEMOGLOBIN 26.9 pg (28.0-32.0); MEAN CORPUSCULAR VOLUME 84.7 fL (81.0-99.0); MEAN PLATELET VOLUME 7.5 fl (7.4-10.4); PLATELET 334 x1000/uL (130-400); RED BLOOD CELL COUNT 4.56 mill/uL (4.2-5.4); RED CELL DISTRIBUTION WIDTH 16.6 % (11.6-14.6)
[2018-10-30 07:15] LABS: CHLORIDE 101 mEq/L (98-107)
[2018-10-30] MEDS: ASPIRIN 81MG TABLET PO SCH (08:53)
[2018-10-30] MEDS: FERROUS SULFATE 325MG TABLET PO SCH ×3 (08:53→17:10)
[2018-10-30] MEDS: CARVEDILOL 3.125 MG TABLET PO SCH ×2 (08:54→21:56)
[2018-10-30] MEDS: CALCIUM CARBONATE 500MG TABLET CHEW PO SCH ×2 (08:55→17:09)
[2018-10-30] MEDS: METHIMAZOLE 5MG TABLET PO SCH ×3 (08:55→17:10)
[2018-10-30] MEDS: DILTIAZEM HCL 120MG CAPSULE CD 24HR PO SCH (08:55)
[2018-10-30] MEDS: DOCUSATE SODIUM 100MG CAPSULE PO SCH (08:56)
[2018-10-30] MEDS: DIAZEPAM 5 MG TABLET PO PRN (09:01)
[2018-10-30] MEDS: BUDESONIDE 0.5MG/2ML NEB HHN SCH ×2 (10:21→21:48)
[2018-10-30] MEDS: DIGOXIN 125MCG TABLET PO SCH (17:09)
[2018-10-30] MEDS: ENOXAPARIN 40MG/0.4ML SYR SUBCUT SCH (17:12)
[2018-10-31] VITALS (8 sets, daily range): BP systolic 109–133; BP diastolic 55–97
[2018-10-31] MEDS: HYDROCODONE/ACETAMINOPHEN 10/325MG TABLET PO PRN ×2 (00:27→08:54)
[2018-10-31] MEDS: IPRATROPIUM BROMIDE (0.02%) 0.5MG/2.5ML NEB HHN SCH ×3 (01:20→09:38)
[2018-10-31] MEDS: DIAZEPAM 5 MG TABLET PO PRN (02:36)
[2018-10-31 04:55] LABS: PLATELET ESTIMATE NORMAL
[2018-10-31] MEDS: FUROSEMIDE 40MG/4ML VIAL IV SCH (06:39)
[2018-10-31] MEDS: HYDRALAZINE HCL 100MG TABLET PO SCH (06:40)
[2018-10-31] MEDS: CALCIUM CARBONATE 500MG TABLET CHEW PO SCH (08:43)
[2018-10-31] MEDS: CARVEDILOL 3.125 MG TABLET PO SCH (08:44)
[2018-10-31] MEDS: DILTIAZEM HCL 120MG CAPSULE CD 24HR PO SCH (08:44)
[2018-10-31] MEDS: DOCUSATE SODIUM 100MG CAPSULE PO SCH (08:45)
[2018-10-31] MEDS: ASPIRIN 81MG TABLET PO SCH (08:45)
[2018-10-31] MEDS: METHIMAZOLE 5MG TABLET PO SCH (08:48)
[2018-10-31] MEDS: FERROUS SULFATE 325MG TABLET PO SCH (08:56)
[2018-10-31] MEDS ORDERED: FAMOTIDINE 20MG TABLET PO SCH (09:00)
[2018-10-31] MEDS: BUDESONIDE 0.5MG/2ML NEB HHN SCH (09:38)
== END 2018-10-31 12:49 | disposition home or self-care (01) | DRG 201 ==
LOC: ER 11:12 → 3WST 12:33 → EDBEDREQTM 12:36 → EDBEDREQ 12:36 → ENRESERV 13:47
PROVIDERS: ADMIT Internal Medicine; ATTEND Internal Medicine
DX: I48.0 Paroxysmal atrial fibrillation (principal); J96.20 Acute and chronic respiratory failure, unspecified whether with hypoxia or hypercapnia; I11.0 Hypertensive heart disease with heart failure; I50.32 Chronic diastolic (congestive) heart failure; I47.1 Supraventricular tachycardia; E44.1 Mild protein-calorie malnutrition; D64.9 Anemia, unspecified; J44.9 Chronic obstructive pulmonary disease, unspecified; K21.9 Gastro-esophageal reflux disease without esophagitis; I73.9 Peripheral vascular disease, unspecified; F41.1 Generalized anxiety disorder; I25.10 Atherosclerotic heart disease of native coronary artery without angina pectoris; E05.90 Thyrotoxicosis, unspecified without thyrotoxic crisis or storm; F17.210 Nicotine dependence, cigarettes, uncomplicated; Z79.82 Long term (current) use of aspirin; Z79.899 Other long term (current) drug therapy; Z99.81 Dependence on supplemental oxygen; Z68.22 Body mass index [BMI] 22.0-22.9, adult; Z88.0 Allergy status to penicillin; Z88.8 Allergy status to other drugs, medicaments and biological substances
CPT/HCPCS: 36415; 71045; 80048; 80061; 80162; 80305; 80320; 83735; 83880; 84439; 84443; 84484; 93005; 94640; 96374; 96375; 97162; 99291; J1650; J1940; J2270; J2405; J3010; J7626; G0480

== ENCOUNTER 2018-12-08 05:28 | Inpatient (IN) | payer MEDICARE, MEDICAID ==
[~2018-12-08] VITALS: Ht 170.2 cm; Wt 80.5 kg
[~2018-12-08 05:28] MED LIST changes: +TAP5 MT
[2018-12-08] MEDS ORDERED: ALBUTEROL (0.083%) 2.5MG/3ML NEB HHN STA (06:38)
[2018-12-08 07:00] LABS: BASOPHILS % 0.6 % (0.0-2.0); EOSINOPHILS % 2.1 % (0.0-5.0); HEMATOCRIT. 34.3 % (36.0-48.0); HEMOGLOBIN. 11.1 g/dL (12.0-16.0); LYMPHOCYTES % 20.9 % (20.0-50.0); MEAN CORPUSCULAR HEMOGLOBIN 27.3 pg (28.0-32.0); MEAN CORPUSCULAR VOLUME 84.5 fL (81.0-99.0); MEAN PLATELET VOLUME 7.2 fl (7.4-10.4); MONOCYTES % 13.4 % (2.0-8.0); PLATELET 217 x1000/uL (130-400); RED BLOOD CELL COUNT 4.05 mill/uL (4.2-5.4); RED CELL DISTRIBUTION WIDTH 15.8 % (11.6-14.6)
[2018-12-08 07:05] LABS: CHLORIDE 108 mEq/L (98-107)
[2018-12-08 07:06] LABS: INR 1.1
[2018-12-08] MEDS ORDERED: NITROGLYCERIN 0.4MG TABLET SL SL ONE (07:30)
[2018-12-08 07:31] LABS: DIGOXIN 0.5 ng/mL (0.9-2.0)
[2018-12-08] MEDS: DIGOXIN 125MCG TABLET PO NR ×2 (08:55→10:55)
[2018-12-08] MEDS ORDERED: ALBUTEROL (0.5%) 2.5MG/0.5ML NEB HHN ONE (12:00)
[2018-12-08] MEDS ORDERED: ACETAMINOPHEN 325MG TABLET PO PRN (12:15)
[2018-12-08] MEDS ORDERED: MAGNESIUM/ALUMINUM HYDROXIDE/SIMETHICONE 30ML UDC PO PRN (12:15)
[2018-12-08] MEDS ORDERED: METHYLPREDNISOLONE SOD SUCC 125 MG/2 ML VIAL IV ONE (12:15)
[2018-12-08] MEDS ORDERED: HYDRALAZINE 20MG/ML VIAL IV PRN ×2 (12:15→13:45)
[2018-12-08] MEDS ORDERED: MAGNESIUM HYDROXIDE 400MG/5ML 30ML UDC PO PRN (12:15)
[2018-12-08] MEDS ORDERED: ONDANSETRON HCL 4MG/2ML INJ IV PRN (12:15)
[2018-12-08] MEDS ORDERED: DIPHENHYDRAMINE 50MG/ML VIAL IV PRN (12:15)
[2018-12-08] MEDS ORDERED: GUAIFENESIN 200MG/10ML SUGAR FREE UDC PO PRN (12:15)
[2018-12-08] MEDS ORDERED: FERROUS SULFATE 325MG TABLET PO SCH (13:00)
[2018-12-08] MEDS: ENOXAPARIN 40MG/0.4ML SYR SUBCUT SCH ×2 (14:00→17:41)
[2018-12-08 16:30] VITALS: BP 199/94
[2018-12-08] MEDS: METHIMAZOLE 5MG TABLET PO SCH ×2 (17:00→17:42)
[2018-12-08] MEDS: DOCUSATE SODIUM 100MG CAPSULE PO SCH (17:00)
[2018-12-08] MEDS ORDERED: BENAZEPRIL 10MG TABLET PO SCH (17:00)
[2018-12-08] MEDS: BENAZEPRIL 10MG TABLET PO SCH (17:42)
[2018-12-08] MEDS: DILTIAZEM HCL 90MG TABLET PO SCH (17:43)
[2018-12-08] MEDS ORDERED: DILTIAZEM HCL 60MG TABLET PO SCH (18:00)
[2018-12-08 20:00] VITALS: BP_SYST 158; BP_SYST 166; BP_SYST 179; BP_DIAS 77; BP_DIAS 79; BP_DIAS 80
[2018-12-08 20:12] VITALS: BP 179/80
[2018-12-08] MEDS ORDERED: HYDR-4009 MT (20:31)
[2018-12-08] MEDS: OMEPRAZOLE 20MG CAPSULE EXTENDED RELEASE PO SCH (20:58)
[2018-12-08] MEDS: CARVEDILOL 12.5MG TABLET PO SCH (20:59)
[2018-12-08] MEDS ORDERED: TEMAZEPAM 15MG CAPSULE PO PRN (21:00)
[2018-12-08] MEDS: HYDROCODONE/ACETAMINOPHEN 5/325MG TABLET PO PRN (21:05)
[2018-12-08] MEDS: SODIUM CHLORIDE 0.9% INJ 3ML FLUSH IVF SCH (21:06)
[2018-12-08] MEDS: HYDRALAZINE HCL 100MG TABLET PO SCH (21:06)
[2018-12-08] MEDS: BUDESONIDE 0.5MG/2ML NEB HHN SCH (21:27)
[2018-12-08] MEDS: IPRATROPIUM/ALBUTEROL 0.5-3(2.5)MG/3ML NEB INH PRN (21:30)
[2018-12-08] MEDS: METHYLPREDNISOLONE SOD SUCC 40 MG/ML VIAL IV SCH (22:24)
[2018-12-09] VITALS (7 sets, daily range): BP systolic 150–184; BP diastolic 63–83
[2018-12-09] MEDS: DIAZEPAM 5 MG TABLET PO PRN (00:35)
[2018-12-09] MEDS: DILTIAZEM HCL 90MG TABLET PO SCH ×3 (00:35→13:31)
[2018-12-09] MEDS: HYDRALAZINE HCL 100MG TABLET PO SCH ×3 (06:00→21:06)
[2018-12-09] MEDS: SODIUM CHLORIDE 0.9% INJ 3ML FLUSH IVF SCH ×2 (06:05→21:11)
[2018-12-09] MEDS: HYDROCODONE/ACETAMINOPHEN 5/325MG TABLET PO PRN ×3 (06:05→21:06)
[2018-12-09] MEDS: METHYLPREDNISOLONE SOD SUCC 40 MG/ML VIAL IV SCH ×3 (06:15→21:40)
[2018-12-09] MEDS: OMEPRAZOLE 20MG CAPSULE EXTENDED RELEASE PO SCH ×2 (06:35→21:07)
[2018-12-09] MEDS: IPRATROPIUM/ALBUTEROL 0.5-3(2.5)MG/3ML NEB INH PRN (06:58)
[2018-12-09] MEDS: BUDESONIDE 0.5MG/2ML NEB HHN SCH ×2 (07:48→20:46)
[2018-12-09] MEDS: DOCUSATE SODIUM 100MG CAPSULE PO SCH (09:00)
[2018-12-09] MEDS: METHIMAZOLE 5MG TABLET PO SCH ×2 (09:00→13:31)
[2018-12-09] MEDS: ASPIRIN 81MG EC TABLET PO SCH (09:00)
[2018-12-09] MEDS: BENAZEPRIL 10MG TABLET PO SCH (09:01)
[2018-12-09] MEDS: CARVEDILOL 12.5MG TABLET PO SCH ×2 (09:01→21:05)
[2018-12-09] MEDS: FERROUS SULFATE 325MG TABLET PO SCH (09:02)
[2018-12-09] MEDS ORDERED: MAGNESIUM 1 G PREMIX 100 ML IV SCH (11:00)
[2018-12-09] MEDS: IPRATROPIUM BROMIDE (0.02%) 0.5MG/2.5ML NEB HHN SCH ×3 (11:55→20:46)
[2018-12-09 12:19] LABS: T4 FREE 0.8 ng/dL (0.76-1.46)
[2018-12-09] MEDS: ENOXAPARIN 40MG/0.4ML SYR SUBCUT SCH (13:03)
[2018-12-09] MEDS: FUROSEMIDE 40MG TABLET PO SCH (13:31)
[2018-12-09] MEDS: DIGOXIN 500MCG/2ML AMP IV SCH (21:40)
[2018-12-10] VITALS: BP 174/82
[2018-12-10] MEDS: DIAZEPAM 5 MG TABLET PO PRN (00:11)
[2018-12-10] MEDS: DILTIAZEM HCL 90MG TABLET PO SCH ×4 (00:13→17:18)
[2018-12-10] MEDS: IPRATROPIUM BROMIDE (0.02%) 0.5MG/2.5ML NEB HHN SCH ×6 (00:52→21:02)
[2018-12-10 04:00] VITALS: BP 172/75
[2018-12-10] MEDS: HYDRALAZINE HCL 100MG TABLET PO SCH ×3 (05:20→21:00)
[2018-12-10] MEDS: SODIUM CHLORIDE 0.9% INJ 3ML FLUSH IVF SCH ×3 (05:22→21:00)
[2018-12-10] MEDS: HYDROCODONE/ACETAMINOPHEN 5/325MG TABLET PO PRN ×3 (05:22→15:55)
[2018-12-10] MEDS: METHYLPREDNISOLONE SOD SUCC 40 MG/ML VIAL IV SCH ×2 (06:09→17:30)
[2018-12-10] MEDS: OMEPRAZOLE 20MG CAPSULE EXTENDED RELEASE PO SCH ×2 (06:25→20:50)
[2018-12-10 08:00] VITALS: BP 170/75
[2018-12-10] MEDS: BUDESONIDE 0.5MG/2ML NEB HHN SCH ×2 (08:08→21:03)
[2018-12-10] MEDS: DOCUSATE SODIUM 100MG CAPSULE PO SCH ×3 (09:00→17:18)
[2018-12-10] MEDS: METHIMAZOLE 5MG TABLET PO SCH ×4 (09:00→17:18)
[2018-12-10] MEDS: FERROUS SULFATE 325MG TABLET PO SCH (10:16)
[2018-12-10] MEDS: ASPIRIN 81MG EC TABLET PO SCH (10:16)
[2018-12-10] MEDS: CARVEDILOL 12.5MG TABLET PO SCH ×2 (10:16→20:51)
[2018-12-10] MEDS: FUROSEMIDE 40MG TABLET PO SCH (10:16)
[2018-12-10] MEDS: BENAZEPRIL 10MG TABLET PO SCH (10:16)
[2018-12-10 12:50] VITALS: BP 119/71
[2018-12-10] MEDS: ENOXAPARIN 40MG/0.4ML SYR SUBCUT SCH (14:00)
[2018-12-10 16:30] VITALS: BP 161/74
[2018-12-10] MEDS: DIGOXIN 500MCG/2ML AMP IV SCH (17:30)
[2018-12-10 20:00] VITALS: BP_SYST 176; BP_SYST 187; BP_DIAS 81; BP_DIAS 82
[2018-12-11] VITALS (8 sets, daily range): BP systolic 129–179; BP diastolic 61–78
[2018-12-11] MEDS: DILTIAZEM HCL 90MG TABLET PO SCH ×4 (00:18→19:37)
[2018-12-11] MEDS: IPRATROPIUM BROMIDE (0.02%) 0.5MG/2.5ML NEB HHN SCH ×5 (00:20→20:19)
[2018-12-11] MEDS: HYDRALAZINE HCL 100MG TABLET PO SCH ×3 (06:18→22:41)
[2018-12-11] MEDS: SODIUM CHLORIDE 0.9% INJ 3ML FLUSH IVF SCH ×2 (06:18→22:00)
[2018-12-11] MEDS: OMEPRAZOLE 20MG CAPSULE EXTENDED RELEASE PO SCH ×2 (06:20→22:40)
[2018-12-11] MEDS: BUDESONIDE 0.5MG/2ML NEB HHN SCH ×2 (08:00→20:15)
[2018-12-11] MEDS: METHIMAZOLE 5MG TABLET PO SCH ×3 (08:44→17:39)
[2018-12-11] MEDS: CARVEDILOL 12.5MG TABLET PO SCH ×2 (08:44→22:43)
[2018-12-11] MEDS: FERROUS SULFATE 325MG TABLET PO SCH (08:44)
[2018-12-11] MEDS: BENAZEPRIL 10MG TABLET PO SCH (08:44)
[2018-12-11] MEDS: ASPIRIN 81MG EC TABLET PO SCH (08:45)
[2018-12-11] MEDS: FUROSEMIDE 40MG TABLET PO SCH (08:45)
[2018-12-11] MEDS: HYDROCODONE/ACETAMINOPHEN 5/325MG TABLET PO PRN (08:45)
[2018-12-11] MEDS: DOCUSATE SODIUM 100MG CAPSULE PO SCH ×2 (08:45→17:38)
[2018-12-11] MEDS: METHYLPREDNISOLONE SOD SUCC 40 MG/ML VIAL IV SCH ×2 (09:59→17:52)
[2018-12-11] MEDS: ENOXAPARIN 40MG/0.4ML SYR SUBCUT SCH ×2 (14:00→18:26)
[2018-12-11] MEDS: DIGOXIN 500MCG/2ML AMP IV SCH (17:52)
[2018-12-11] MEDS: DIAZEPAM 5 MG TABLET PO PRN (18:25)
[2018-12-12] VITALS (7 sets, daily range): BP systolic 139–164; BP diastolic 67–76
[2018-12-12] MEDS: IPRATROPIUM BROMIDE (0.02%) 0.5MG/2.5ML NEB HHN SCH ×3 (00:21→12:06)
[2018-12-12] MEDS: DILTIAZEM HCL 90MG TABLET PO SCH ×4 (06:00→19:22)
[2018-12-12] MEDS: HYDRALAZINE HCL 100MG TABLET PO SCH ×3 (07:24→21:22)
[2018-12-12] MEDS: OMEPRAZOLE 20MG CAPSULE EXTENDED RELEASE PO SCH (07:32)
[2018-12-12] MEDS: BUDESONIDE 0.5MG/2ML NEB HHN SCH ×2 (08:42→20:43)
[2018-12-12] MEDS: METHYLPREDNISOLONE SOD SUCC 40 MG/ML VIAL IV SCH (08:55)
[2018-12-12] MEDS: HYDROCODONE/ACETAMINOPHEN 5/325MG TABLET PO PRN (09:00)
[2018-12-12] MEDS: FERROUS SULFATE 325MG TABLET PO SCH (09:01)
[2018-12-12] MEDS: FUROSEMIDE 40MG TABLET PO SCH (09:01)
[2018-12-12] MEDS: DOCUSATE SODIUM 100MG CAPSULE PO SCH ×2 (09:01→19:22)
[2018-12-12] MEDS: BENAZEPRIL 10MG TABLET PO SCH (09:01)
[2018-12-12] MEDS: ASPIRIN 81MG EC TABLET PO SCH (09:01)
[2018-12-12] MEDS: METHIMAZOLE 5MG TABLET PO SCH ×3 (09:01→19:21)
[2018-12-12] MEDS: CARVEDILOL 12.5MG TABLET PO SCH ×2 (09:08→21:22)
[2018-12-12 11:48] LABS: CHLORIDE 98 mEq/L (98-107)
[2018-12-12 12:09] LABS: HEMATOCRIT 40.3 % (36.0-48.0); HEMOGLOBIN 12.8 g/dL (12.0-16.0); MEAN CORPUSCULAR HEMOGLOBIN 27.3 pg (28.0-32.0); MEAN CORPUSCULAR VOLUME 86.1 fL (81.0-99.0); PLATELET 345 x1000/uL (130-400); RED BLOOD CELL COUNT 4.68 mill/uL (4.2-5.4); RED CELL DISTRIBUTION WIDTH 16.1 % (11.6-14.6)
[2018-12-12] MEDS: APIXABAN 5 MG TABLET PO SCH ×2 (13:31→19:21)
[2018-12-12] MEDS: SODIUM CHLORIDE 0.9% INJ 3ML FLUSH IVF SCH (13:32)
[2018-12-12] MEDS: IPRATROPIUM/ALBUTEROL 0.5-3(2.5)MG/3ML NEB HHN SCH ×2 (16:47→20:43)
[2018-12-12] MEDS: METHYLPREDNISOLONE SOD SUCC 125 MG/2 ML VIAL IV SCH (17:45)
[2018-12-12] MEDS: DIGOXIN 500MCG/2ML AMP IV SCH (17:46)
[2018-12-12] MEDS: FAMOTIDINE 20MG TABLET PO SCH (21:22)
[2018-12-13] VITALS (7 sets, daily range): BP systolic 134–166; BP diastolic 58–90
[2018-12-13] MEDS: DILTIAZEM HCL 90MG TABLET PO SCH ×4 (00:27→18:22)
[2018-12-13] MEDS: METHYLPREDNISOLONE SOD SUCC 125 MG/2 ML VIAL IV SCH ×2 (00:29→08:17)
[2018-12-13] MEDS: IPRATROPIUM/ALBUTEROL 0.5-3(2.5)MG/3ML NEB HHN SCH ×3 (00:43→15:01)
[2018-12-13] MEDS: HYDRALAZINE HCL 100MG TABLET PO SCH ×2 (06:32→15:46)
[2018-12-13] MEDS: SODIUM CHLORIDE 0.9% INJ 3ML FLUSH IVF SCH ×4 (06:43→15:45)
[2018-12-13] MEDS: DOCUSATE SODIUM 100MG CAPSULE PO SCH ×2 (08:17→17:22)
[2018-12-13] MEDS: FUROSEMIDE 40MG TABLET PO SCH (08:18)
[2018-12-13] MEDS: CARVEDILOL 12.5MG TABLET PO SCH (08:18)
[2018-12-13] MEDS: METHIMAZOLE 5MG TABLET PO SCH ×3 (08:18→17:22)
[2018-12-13] MEDS: FAMOTIDINE 20MG TABLET PO SCH (08:18)
[2018-12-13] MEDS: BENAZEPRIL 10MG TABLET PO SCH (08:18)
[2018-12-13] MEDS: ASPIRIN 81MG EC TABLET PO SCH (08:19)
[2018-12-13] MEDS: FERROUS SULFATE 325MG TABLET PO SCH (08:19)
[2018-12-13] MEDS: APIXABAN 5 MG TABLET PO SCH ×2 (08:19→17:22)
[2018-12-13] MEDS: BUDESONIDE 0.5MG/2ML NEB HHN SCH (08:52)
[2018-12-13] MEDS: HYDROCODONE/ACETAMINOPHEN 5/325MG TABLET PO PRN (11:57)
[2018-12-13] MEDS ORDERED: METHYLPREDNISOLONE SOD SUCC 40 MG/ML VIAL IV SCH (17:00)
[2018-12-13] MEDS: DIGOXIN 500MCG/2ML AMP IV SCH (18:23)
== END 2018-12-13 19:03 | disposition home or self-care (01) | DRG 189 ==
LOC: ER 05:28 → 6WST 08:27 → EDBEDREQTM 08:30 → EDBEDREQ 08:30 → ENRESERV 14:12
PROVIDERS: ADMIT Internal Medicine; ATTEND Internal Medicine
DX: J96.20 Acute and chronic respiratory failure, unspecified whether with hypoxia or hypercapnia (principal); I47.1 Supraventricular tachycardia; J44.1 Chronic obstructive pulmonary disease with (acute) exacerbation; E44.1 Mild protein-calorie malnutrition; I50.32 Chronic diastolic (congestive) heart failure; I48.91 Unspecified atrial fibrillation; D64.9 Anemia, unspecified; E05.90 Thyrotoxicosis, unspecified without thyrotoxic crisis or storm; F41.1 Generalized anxiety disorder; F17.210 Nicotine dependence, cigarettes, uncomplicated; I11.0 Hypertensive heart disease with heart failure; K21.9 Gastro-esophageal reflux disease without esophagitis; M19.90 Unspecified osteoarthritis, unspecified site; G89.4 Chronic pain syndrome; Z96.643 Presence of artificial hip joint, bilateral; Z99.81 Dependence on supplemental oxygen; Z88.1 Allergy status to other antibiotic agents; Z88.0 Allergy status to penicillin; Z88.8 Allergy status to other drugs, medicaments and biological substances; Z79.82 Long term (current) use of aspirin; Z79.899 Other long term (current) drug therapy; Z90.722 Acquired absence of ovaries, bilateral; Z90.49 Acquired absence of other specified parts of digestive tract; Z68.27 Body mass index [BMI] 27.0-27.9, adult
CPT/HCPCS: 36415; 71045; 80048; 80162; 83605; 83735; 83880; 84439; 84443; 84484; 85027; 93005; 93970; 94640; 96374; 96375; 99285; J0360; J1160; J1650; J2405; J2920; J2930; J3475; J7050; J7611; J7620; J7626

== ENCOUNTER 2018-12-29 10:00 | Inpatient (IN) | payer MEDICARE, MEDICAID ==
[~2018-12-29] VITALS: Ht 182.9 cm; Wt 77.1 kg
[~2018-12-29 10:00] MED LIST changes: +HYDR-4009 MT
[2018-12-29] MEDS ORDERED: MORPHINE SULFATE 4 MG/ML CPJ (NOT FOR IM USE) IV ONE (10:30)
[2018-12-29 10:38] LABS: EOSINOPHILS % 3.1 % (0.0-5.0); HEMATOCRIT. 34.3 % (36.0-48.0); LYMPHOCYTES % 18.7 % (20.0-50.0); MEAN CORPUSCULAR VOLUME 87.8 fL (81.0-99.0); MONOCYTES % 11.5 % (2.0-8.0); NEUTROPHILS % 65.7 % (40.0-76.0); PLATELET 220 x1000/uL (130-400); RED BLOOD CELL COUNT 3.91 mill/uL (4.2-5.4); RED CELL DISTRIBUTION WIDTH 16.8 % (11.6-14.6)
[2018-12-29 10:44] LABS: CHLORIDE 108 mEq/L (98-107)
[2018-12-29] MEDS ORDERED: CLONIDINE 0.1MG TABLET PO PRN (14:30)
[2018-12-29] MEDS ORDERED: DIPHENHYDRAMINE 50MG/ML VIAL IV PRN (14:30)
[2018-12-29] MEDS ORDERED: ONDANSETRON HCL 4MG/2ML INJ IV PRN (14:30)
[2018-12-29] MEDS ORDERED: GUAIFENESIN 200MG/10ML SUGAR FREE UDC PO PRN (14:30)
[2018-12-29] MEDS ORDERED: DOCUSATE SODIUM 100MG CAPSULE PO PRN (14:30)
[2018-12-29] MEDS ORDERED: HYDROMORPHONE HCL/PF 2MG/ML CPJ IV PRN (14:30)
[2018-12-29] MEDS ORDERED: ACETAMINOPHEN 325MG TABLET PO PRN (14:30)
[2018-12-29] MEDS ORDERED: MAGNESIUM/ALUMINUM HYDROXIDE/SIMETHICONE 30ML UDC PO PRN (14:30)
[2018-12-29 15:56] VITALS: BP 164/68
[2018-12-29 16:00] VITALS: BP 164/68
[2018-12-29] MEDS: ENOXAPARIN 40MG/0.4ML SYR SUBCUT SCH ×2 (16:00→16:40)
[2018-12-29] MEDS: HYDRALAZINE 20MG/ML VIAL IV PRN (16:39)
[2018-12-29] MEDS ORDERED: COR12 MT (17:34)
[2018-12-29 20:00] VITALS: BP 147/55
[2018-12-29] MEDS: IPRATROPIUM/ALBUTEROL 0.5-3(2.5)MG/3ML NEB INH PRN (21:36)
[2018-12-29] MEDS: SODIUM CHLORIDE 0.9% INJ 3ML FLUSH IVF SCH (22:03)
[2018-12-30] VITALS: BP 170/59
[2018-12-30 01:27] LABS: CREATINE KINASE MB FRACTION 2.8 ng/mL (0.5-3.6)
[2018-12-30] MEDS: HYDRALAZINE 20MG/ML VIAL IV PRN (01:27)
[2018-12-30] MEDS: IPRATROPIUM/ALBUTEROL 0.5-3(2.5)MG/3ML NEB INH PRN ×4 (01:34→13:17)
[2018-12-30 02:25] VITALS: BP 152/62
[2018-12-30 04:00] VITALS: BP 150/62
[2018-12-30] MEDS: HYDRALAZINE HCL 25MG TABLET PO SCH ×3 (06:02→21:32)
[2018-12-30] MEDS: SODIUM CHLORIDE 0.9% INJ 3ML FLUSH IVF SCH ×3 (06:04→21:35)
[2018-12-30 06:52] LABS: BASOPHILS % 0.7 % (0.0-2.0); HEMATOCRIT. 27.6 % (36.0-48.0); LYMPHOCYTES % 24.1 % (20.0-50.0); MEAN CORPUSCULAR HEMOGLOBIN 28.5 pg (28.0-32.0); MEAN CORPUSCULAR VOLUME 87.5 fL (81.0-99.0); MONOCYTES % 13.9 % (2.0-8.0); NEUTROPHILS % 58.3 % (40.0-76.0); PLATELET 200 x1000/uL (130-400); RED BLOOD CELL COUNT 3.15 mill/uL (4.2-5.4); RED CELL DISTRIBUTION WIDTH 16.7 % (11.6-14.6)
[2018-12-30 07:10] LABS: CHLORIDE 107 mEq/L (98-107)
[2018-12-30 07:19] LABS: CREATINE KINASE 26 IU/L (26-192)
[2018-12-30 07:21] LABS: CREATINE KINASE MB FRACTION 2.1 ng/mL (0.5-3.6)
[2018-12-30 08:00] VITALS: BP 148/64
[2018-12-30] MEDS: AMIODARONE HCL 200 MG TABLET PO SCH ×3 (08:47→16:42)
[2018-12-30] MEDS: DOXAZOSIN MESYLATE 2MG TABLET PO SCH ×2 (08:47→16:42)
[2018-12-30] MEDS: BENAZEPRIL 10MG TABLET PO SCH ×2 (08:48→21:32)
[2018-12-30] MEDS: FUROSEMIDE 40MG TABLET PO SCH (08:48)
[2018-12-30] MEDS: ASPIRIN 81MG EC TABLET PO SCH (08:48)
[2018-12-30] MEDS: METHIMAZOLE 5MG TABLET PO SCH ×2 (15:30→16:42)
[2018-12-30 16:00] VITALS: BP 109/64
[2018-12-30] MEDS: ENOXAPARIN 40MG/0.4ML SYR SUBCUT SCH (16:00)
[2018-12-30] MEDS: IPRATROPIUM/ALBUTEROL 0.5-3(2.5)MG/3ML NEB INH SCH ×2 (16:44→21:46)
[2018-12-30] MEDS ORDERED: POTASSIUM CHLORIDE 20MEQ TABLET SR PO NR (17:45)
[2018-12-30 20:00] VITALS: BP 152/75
[2018-12-30] MEDS: HYDROCODONE/ACETAMINOPHEN 5/325MG TABLET PO PRN (21:34)
[2018-12-31] VITALS: BP 147/63
[2018-12-31] MEDS: METHYLPREDNISOLONE SOD SUCC 125 MG/2 ML VIAL IV SCH ×4 (00:38→21:44)
[2018-12-31] MEDS: IPRATROPIUM/ALBUTEROL 0.5-3(2.5)MG/3ML NEB INH SCH ×5 (01:10→15:12)
[2018-12-31 04:00] VITALS: BP 140/68
[2018-12-31] MEDS: SODIUM CHLORIDE 0.9% INJ 3ML FLUSH IVF SCH ×3 (06:56→21:45)
[2018-12-31] MEDS: HYDRALAZINE HCL 25MG TABLET PO SCH ×2 (06:57→14:52)
[2018-12-31 07:11] LABS: T4 FREE 0.71 ng/dL (0.76-1.46)
[2018-12-31 08:00] VITALS: BP 154/68
[2018-12-31] MEDS: ASPIRIN 81MG EC TABLET PO SCH (08:55)
[2018-12-31] MEDS: AMIODARONE HCL 200 MG TABLET PO SCH (08:55)
[2018-12-31] MEDS: DOXAZOSIN MESYLATE 2MG TABLET PO SCH (08:56)
[2018-12-31] MEDS: BENAZEPRIL 10MG TABLET PO SCH ×2 (08:56→21:45)
[2018-12-31] MEDS: FUROSEMIDE 40MG TABLET PO SCH (08:56)
[2018-12-31] MEDS: METHIMAZOLE 5MG TABLET PO SCH ×3 (08:57→17:55)
[2018-12-31] MEDS: HYDROCODONE/ACETAMINOPHEN 5/325MG TABLET PO PRN ×2 (09:05→23:30)
[2018-12-31 12:00] VITALS: BP_SYST 140; BP_SYST 165; BP_DIAS 70; BP_DIAS 72
[2018-12-31] MEDS: SOTALOL HCL 80MG TABLET PO SCH ×2 (12:08→21:45)
[2018-12-31 16:00] VITALS: BP 145/52
[2018-12-31] MEDS: ENOXAPARIN 40MG/0.4ML SYR SUBCUT SCH (16:00)
[2018-12-31] MEDS ORDERED: DIAZEPAM 5 MG TABLET PO PRN (17:45)
[2018-12-31 20:00] VITALS: BP 160/68
[2018-12-31] MEDS: IPRATROPIUM BROMIDE (0.02%) 0.5MG/2.5ML NEB HHN SCH (20:33)
[2019-01-01] VITALS: BP 122/74
[2019-01-01] MEDS: IPRATROPIUM BROMIDE (0.02%) 0.5MG/2.5ML NEB HHN SCH ×6 (00:08→20:15)
[2019-01-01 04:00] VITALS: BP 139/64
[2019-01-01] MEDS: METHYLPREDNISOLONE SOD SUCC 125 MG/2 ML VIAL IV SCH (05:00)
[2019-01-01] MEDS: SODIUM CHLORIDE 0.9% INJ 3ML FLUSH IVF SCH ×3 (05:44→21:30)
[2019-01-01 08:00] VITALS: BP 147/94
[2019-01-01] MEDS: HYDRALAZINE HCL 100MG TABLET PO SCH ×3 (08:25→16:19)
[2019-01-01] MEDS: ASPIRIN 81MG EC TABLET PO SCH (08:25)
[2019-01-01] MEDS: DOXAZOSIN MESYLATE 4MG TABLET PO SCH ×2 (08:25→16:20)
[2019-01-01] MEDS: BENAZEPRIL 10MG TABLET PO SCH ×2 (08:26→20:56)
[2019-01-01] MEDS: SOTALOL HCL 80MG TABLET PO SCH ×2 (08:26→20:56)
[2019-01-01] MEDS: METHIMAZOLE 5MG TABLET PO SCH ×3 (08:31→16:25)
[2019-01-01] MEDS: HYDROCODONE/ACETAMINOPHEN 5/325MG TABLET PO PRN ×3 (08:38→21:10)
[2019-01-01] MEDS: FUROSEMIDE 40MG TABLET PO SCH (08:38)
[2019-01-01 12:00] VITALS: BP 125/56
[2019-01-01] MEDS: ENOXAPARIN 40MG/0.4ML SYR SUBCUT SCH (15:29)
[2019-01-01 16:00] VITALS: BP 122/56
[2019-01-01] MEDS: PREDNISONE 20MG TABLET PO SCH (16:25)
[2019-01-01 20:00] VITALS: BP 126/57
[2019-01-02] VITALS: BP 113/51
[2019-01-02] MEDS: IPRATROPIUM BROMIDE (0.02%) 0.5MG/2.5ML NEB HHN SCH ×7 (00:21→23:52)
[2019-01-02 04:00] VITALS: BP 125/50
[2019-01-02] MEDS: SODIUM CHLORIDE 0.9% INJ 3ML FLUSH IVF SCH ×3 (05:17→22:00)
[2019-01-02] MEDS: HYDROCODONE/ACETAMINOPHEN 5/325MG TABLET PO PRN ×3 (07:49→23:30)
[2019-01-02 09:05] VITALS: BP 136/61
[2019-01-02] MEDS: HYDRALAZINE HCL 100MG TABLET PO SCH ×3 (09:37→16:21)
[2019-01-02] MEDS: ASPIRIN 81MG EC TABLET PO SCH (09:37)
[2019-01-02] MEDS: SOTALOL HCL 80MG TABLET PO SCH ×2 (09:37→22:04)
[2019-01-02] MEDS: METHIMAZOLE 5MG TABLET PO SCH ×3 (09:37→16:21)
[2019-01-02] MEDS: BENAZEPRIL 10MG TABLET PO SCH ×2 (09:38→22:05)
[2019-01-02] MEDS: DOXAZOSIN MESYLATE 4MG TABLET PO SCH ×2 (09:38→16:22)
[2019-01-02] MEDS: FUROSEMIDE 40MG TABLET PO SCH (09:38)
[2019-01-02] MEDS: PREDNISONE 20MG TABLET PO SCH ×2 (09:39→16:22)
[2019-01-02 12:51] VITALS: BP 127/56
[2019-01-02] MEDS: ENOXAPARIN 40MG/0.4ML SYR SUBCUT SCH (15:11)
[2019-01-02 16:15] VITALS: BP 122/57
[2019-01-02 20:00] VITALS: BP 124/52
[2019-01-03] VITALS: BP 136/53
[2019-01-03] MEDS: IPRATROPIUM BROMIDE (0.02%) 0.5MG/2.5ML NEB HHN SCH ×4 (03:59→15:01)
[2019-01-03 04:00] VITALS: BP 121/51
[2019-01-03] MEDS: SODIUM CHLORIDE 0.9% INJ 3ML FLUSH IVF SCH ×2 (05:09→14:00)
[2019-01-03] MEDS: HYDROCODONE/ACETAMINOPHEN 5/325MG TABLET PO PRN (06:01)
[2019-01-03 08:00] VITALS: BP 143/73
[2019-01-03] MEDS: ASPIRIN 81MG EC TABLET PO SCH (09:01)
[2019-01-03] MEDS: SOTALOL HCL 80MG TABLET PO SCH (09:02)
[2019-01-03] MEDS: FUROSEMIDE 40MG TABLET PO SCH (09:02)
[2019-01-03] MEDS: PREDNISONE 20MG TABLET PO SCH ×2 (09:03→17:36)
[2019-01-03] MEDS: METHIMAZOLE 5MG TABLET PO SCH ×3 (09:03→17:36)
[2019-01-03] MEDS: HYDRALAZINE HCL 100MG TABLET PO SCH ×3 (09:04→17:00)
[2019-01-03] MEDS: BENAZEPRIL 10MG TABLET PO SCH (09:05)
[2019-01-03] MEDS: DOXAZOSIN MESYLATE 4MG TABLET PO SCH ×2 (09:05→17:00)
[2019-01-03 11:58] VITALS: BP 143/73
[2019-01-03 12:05] VITALS: BP 133/70
[2019-01-03] MEDS: ENOXAPARIN 40MG/0.4ML SYR SUBCUT SCH (15:07)
[2019-01-03 16:06] VITALS: BP 139/71
== END 2019-01-03 19:30 | disposition home or self-care (01) | DRG 133 ==
LOC: ER 10:00 → 5WST 11:37 → ENRESERV 12:16 → 8WST 01-02 08:34
PROVIDERS: ADMIT Internal Medicine; ATTEND Internal Medicine
DX: J96.20 Acute and chronic respiratory failure, unspecified whether with hypoxia or hypercapnia (principal); I50.33 Acute on chronic diastolic (congestive) heart failure; I27.20 Pulmonary hypertension, unspecified; J44.1 Chronic obstructive pulmonary disease with (acute) exacerbation; E44.1 Mild protein-calorie malnutrition; I48.0 Paroxysmal atrial fibrillation; I47.1 Supraventricular tachycardia; Z99.81 Dependence on supplemental oxygen; I48.91 Unspecified atrial fibrillation; I34.0 Nonrheumatic mitral (valve) insufficiency; E05.90 Thyrotoxicosis, unspecified without thyrotoxic crisis or storm; I11.0 Hypertensive heart disease with heart failure; F41.9 Anxiety disorder, unspecified; D64.9 Anemia, unspecified; E03.9 Hypothyroidism, unspecified; E05.20 Thyrotoxicosis with toxic multinodular goiter without thyrotoxic crisis or storm; I25.10 Atherosclerotic heart disease of native coronary artery without angina pectoris; K21.9 Gastro-esophageal reflux disease without esophagitis; Z79.899 Other long term (current) drug therapy; Z68.23 Body mass index [BMI] 23.0-23.9, adult; Z88.0 Allergy status to penicillin; Z88.8 Allergy status to other drugs, medicaments and biological substances; Z88.1 Allergy status to other antibiotic agents
CPT/HCPCS: 36415; 71045; 82550; 82553; 83880; 84439; 84443; 84484; 93005; 93970; 94640; 96374; 96375; 99285; J0360; J1170; J1200; J1650; J2270; J2930; J7512; J7620

== ENCOUNTER 2019-01-09 04:00 | Inpatient (IN) | payer MEDICARE, MEDICAID ==
[2019-01-09] VITALS (9 sets, daily range): BP systolic 151–209; BP diastolic 79–92
[~2019-01-09] VITALS: Ht 182.9 cm; Wt 83.9 kg
[~2019-01-09 04:00] MED LIST changes: +COR12 MT; -COR3 PO; -DIPH25CA83 PO
[2019-01-09] MEDS ORDERED: IPRATROPIUM BROMIDE (0.02%) 0.5MG/2.5ML NEB HHN STA (04:53)
[2019-01-09] MEDS ORDERED: METHYLPREDNISOLONE SOD SUCC 125 MG/2 ML VIAL IV STA (04:53)
[2019-01-09] MEDS ORDERED: MAGNESIUM 2 G PREMIX 50 ML IV STA (04:53)
[2019-01-09] MEDS ORDERED: ALBUTEROL (0.083%) 2.5MG/3ML NEB HHN STA (04:53)
[2019-01-09 05:15] LABS: HEMATOCRIT. 33.4 % (36.0-48.0); HEMOGLOBIN. 10.6 g/dL (12.0-16.0); MEAN CORPUSCULAR HEMOGLOBIN 27.7 pg (28.0-32.0); MEAN CORPUSCULAR VOLUME 87.4 fL (81.0-99.0); MEAN PLATELET VOLUME 7.1 fl (7.4-10.4); PLATELET 332 x1000/uL (130-400); RED BLOOD CELL COUNT 3.83 mill/uL (4.2-5.4); RED CELL DISTRIBUTION WIDTH 16.8 % (11.6-14.6)
[2019-01-09 05:18] LABS: CHLORIDE 109 mEq/L (98-107)
[2019-01-09] MEDS ORDERED: TRAMADOL 50MG TABLET PO PRN (07:15)
[2019-01-09] MEDS ORDERED: NITROGLYCERIN 0.4MG TABLET SL SL PRN (07:15)
[2019-01-09] MEDS ORDERED: KETOROLAC 15MG/ML VIAL IV PRN (07:15)
[2019-01-09] MEDS ORDERED: MAGNESIUM/ALUMINUM HYDROXIDE/SIMETHICONE 30ML UDC PO PRN (07:15)
[2019-01-09] MEDS ORDERED: CLONIDINE 0.1MG TABLET PO PRN (07:15)
[2019-01-09] MEDS ORDERED: ACETAMINOPHEN 325MG TABLET PO PRN (07:15)
[2019-01-09] MEDS ORDERED: ONDANSETRON HCL 4MG/2ML INJ IV PRN (07:15)
[2019-01-09] MEDS ORDERED: GUAIFENESIN 200MG/10ML SUGAR FREE UDC PO PRN (07:15)
[2019-01-09] MEDS ORDERED: LORAZEPAM 0.5MG TABLET PO PRN (07:15)
[2019-01-09] MEDS ORDERED: IPRATROPIUM/ALBUTEROL 0.5-3(2.5)MG/3ML NEB HHN SCH (07:30)
[2019-01-09 08:25] LABS: T4 FREE 0.67 ng/dL (0.76-1.46)
[2019-01-09 08:38] LABS: DIGOXIN 0.4 ng/mL (0.9-2.0)
[2019-01-09] MEDS ORDERED: IPRATROPIUM/ALBUTEROL 0.5-3(2.5)MG/3ML NEB INH PRN (09:00)
[2019-01-09] MEDS ORDERED: AMIODARONE HCL 200 MG TABLET PO SCH (09:00)
[2019-01-09] MEDS ORDERED: DOCUSATE SODIUM 100MG CAPSULE PO PRN (09:00)
[2019-01-09] MEDS ORDERED: AMLODIPINE 10MG TABLET PO SCH (09:00)
[2019-01-09] MEDS: GUAIFENESIN/DM 600MG/30MG ER TAB 12HR PO SCH ×2 (09:52→23:04)
[2019-01-09] MEDS: LISINOPRIL 20MG TABLET PO SCH ×2 (09:53→23:04)
[2019-01-09] MEDS: ASPIRIN 325MG EC TABLET PO SCH (09:53)
[2019-01-09] MEDS: FAMOTIDINE 20MG TABLET PO SCH ×2 (09:53→23:03)
[2019-01-09] MEDS ORDERED: PROPRANOLOL HCL 20MG TABLET PO SCH (10:00)
[2019-01-09] MEDS ORDERED: FUROSEMIDE 40MG/4ML VIAL IVP SCH (12:15)
[2019-01-09] MEDS: RISPERIDONE 0.25MG TABLET PO SCH ×2 (12:50→17:16)
[2019-01-09] MEDS: LEVOFLOXACIN 500MG PREMIX 100 ML IV SCH (12:52)
[2019-01-09] MEDS: BUDESONIDE 0.5MG/2ML NEB HHN SCH ×2 (12:57→20:15)
[2019-01-09] MEDS: IPRATROPIUM BROMIDE (0.02%) 0.5MG/2.5ML NEB HHN SCH ×2 (12:57→20:14)
[2019-01-09 13:59] LABS: PLATELET ESTIMATE NORMAL
[2019-01-09] MEDS ORDERED: METHYLPREDNISOLONE SOD SUCC 125 MG/2 ML VIAL IV SCH (14:00)
[2019-01-09] MEDS: METHIMAZOLE 5MG TABLET PO SCH ×2 (15:09→23:04)
[2019-01-09] MEDS: SILDENAFIL CITRATE 20MG TABLET PO SCH ×2 (15:09→23:04)
[2019-01-09 16:10] LABS: CREATINE KINASE MB FRACTION 2.4 ng/mL (0.5-3.6)
[2019-01-09] MEDS ORDERED: ZOLPIDEM TARTRATE 5MG TABLET PO PRN (21:00)
[2019-01-09] MEDS: SOTALOL HCL 80MG TABLET PO SCH (23:03)
[2019-01-10] VITALS (12 sets, daily range): BP systolic 118–190; BP diastolic 57–93
[2019-01-10 00:18] LABS: CREATINE KINASE MB FRACTION 3.8 ng/mL (0.5-3.6)
[2019-01-10] MEDS: IPRATROPIUM BROMIDE (0.02%) 0.5MG/2.5ML NEB HHN SCH ×5 (01:23→20:39)
[2019-01-10] MEDS: METHIMAZOLE 5MG TABLET PO SCH ×3 (06:27→21:31)
[2019-01-10] MEDS: LISINOPRIL 20MG TABLET PO SCH ×2 (06:28→21:30)
[2019-01-10] MEDS: SILDENAFIL CITRATE 20MG TABLET PO SCH ×3 (06:28→21:31)
[2019-01-10] MEDS: BUDESONIDE 0.5MG/2ML NEB HHN SCH ×2 (07:54→20:39)
[2019-01-10] MEDS: GUAIFENESIN/DM 600MG/30MG ER TAB 12HR PO SCH ×2 (09:43→21:30)
[2019-01-10] MEDS: FAMOTIDINE 20MG TABLET PO SCH ×2 (09:43→21:30)
[2019-01-10] MEDS: FUROSEMIDE 40MG/4ML VIAL IVP SCH (09:43)
[2019-01-10] MEDS: RISPERIDONE 0.25MG TABLET PO SCH (09:44)
[2019-01-10] MEDS: SOTALOL HCL 80MG TABLET PO SCH ×2 (09:44→21:30)
[2019-01-10] MEDS: ASPIRIN 325MG EC TABLET PO SCH (09:44)
[2019-01-10] MEDS: LEVOFLOXACIN 500MG PREMIX 100 ML IV SCH (09:51)
[2019-01-10 18:24] LABS: CLARITY URINE CLEAR (CLEAR); COLOR URINE YELLOW (YELLOW); KETONES URINE NEGATIVE (NEGATIVE); LEUKOCYTE ESTERASE URINE NEGATIVE (NEGATIVE); NITRITE URINE NEGATIVE (NEGATIVE); OCCULT BLOOD URINE NEGATIVE (NEGATIVE); PH URINE 5.5 (4.5-8.0); PROTEIN URINE NEGATIVE (NEGATIVE); SPECIFIC GRAVITY URINE 1.013 (1.005-1.030); UROBILINOGEN URINE 0.2 E.U./dL (0.2-1.0)
[2019-01-10 18:43] LABS: *BARBITURATES SCREEN URINE NEGATIVE (NEGATIVE)
[2019-01-10 18:45] LABS: *AMPHETAMINES SCREEN URINE NEGATIVE (NEGATIVE); *BENZODIAZEPINES SCREEN URINE PRESUMTIVE POSITIVE (NEGATIVE); *COCAINE SCREEN URINE NEGATIVE (NEGATIVE); CANNABINOID URINE SCREEN NEGATIVE (NEGATIVE); METHADONE URINE SCREEN NEGATIVE (NEGATIVE); OPIATES URINE SCREEN PRESUMTIVE POSITIVE (NEGATIVE); PHENCYCLIDINE URINE SCREEN NEGATIVE (NEGATIVE)
[2019-01-10] MEDS: DOXAZOSIN MESYLATE 4MG TABLET PO SCH (21:29)
[2019-01-11] VITALS (12 sets, daily range): BP systolic 83–133; BP diastolic 33–66
[2019-01-11] MEDS: IPRATROPIUM BROMIDE (0.02%) 0.5MG/2.5ML NEB HHN SCH ×3 (00:45→20:50)
[2019-01-11] MEDS: SILDENAFIL CITRATE 20MG TABLET PO SCH ×3 (05:26→21:06)
[2019-01-11] MEDS: METHIMAZOLE 5MG TABLET PO SCH ×3 (05:26→21:05)
[2019-01-11] MEDS: BUDESONIDE 0.5MG/2ML NEB HHN SCH ×2 (08:18→20:50)
[2019-01-11] MEDS: FUROSEMIDE 40MG/4ML VIAL IVP SCH (08:44)
[2019-01-11] MEDS: ASPIRIN 325MG EC TABLET PO SCH (08:44)
[2019-01-11] MEDS: GUAIFENESIN/DM 600MG/30MG ER TAB 12HR PO SCH ×2 (08:45→21:05)
[2019-01-11] MEDS: LISINOPRIL 20MG TABLET PO SCH ×2 (08:45→21:05)
[2019-01-11] MEDS: FAMOTIDINE 20MG TABLET PO SCH ×2 (08:46→21:05)
[2019-01-11] MEDS: SOTALOL HCL 80MG TABLET PO SCH ×2 (08:47→21:06)
[2019-01-11] MEDS: LEVOFLOXACIN 500MG TABLET PO SCH (10:56)
[2019-01-11] MEDS: HYDROCODONE/ACETAMINOPHEN 10/325MG TABLET PO PRN ×2 (16:16→21:07)
[2019-01-11 16:44] LABS: BG BASE EXCESS 13.2 mmol/L (-2.0-2.0); BG DEOXYHEMOGLOBIN 17.7 % (0.0-5.0); BG FRACTION INSPIRED OXYGEN 21; BG HCO3 ACT 39.6 mmol/L (22.0-26.0); BG METHEMOGLOBIN 0.2 % (0.0-1.5); BG OXYGEN SATURATION 82.1 % (92.0-98.5); BG OXYHEMOGLOBIN 81.1 % (94.0-97.0); BG PCO2 66.2 mmHg (35.0-45.0); BG PH 7.395 (7.350-7.450); BG PO2 44.8 mmHg (75.0-100.0); BG SAMPLE SITE LEFT RADIAL; BG TOTAL HEMOGLOBIN 7.3 g/dL (12.0-18.0); BG VENT MODE ROOM AIR
[2019-01-11] MEDS: DOXAZOSIN MESYLATE 4MG TABLET PO SCH (21:05)
[2019-01-11] MEDS: RISPERIDONE 0.25MG TABLET PO SCH (21:05)
[2019-01-12] VITALS (13 sets, daily range): BP systolic 100–161; BP diastolic 49–76
[2019-01-12] MEDS: IPRATROPIUM BROMIDE (0.02%) 0.5MG/2.5ML NEB HHN SCH ×4 (02:00→15:55)
[2019-01-12] MEDS: METHIMAZOLE 5MG TABLET PO SCH ×2 (05:35→15:35)
[2019-01-12] MEDS: SILDENAFIL CITRATE 20MG TABLET PO SCH ×2 (05:35→15:36)
[2019-01-12] MEDS: SOTALOL HCL 80MG TABLET PO SCH ×2 (09:17→21:29)
[2019-01-12] MEDS: LISINOPRIL 20MG TABLET PO SCH ×2 (09:17→21:28)
[2019-01-12] MEDS: FUROSEMIDE 40MG/4ML VIAL IVP SCH (09:17)
[2019-01-12] MEDS: GUAIFENESIN/DM 600MG/30MG ER TAB 12HR PO SCH ×2 (09:17→21:28)
[2019-01-12] MEDS: FAMOTIDINE 20MG TABLET PO SCH ×2 (09:17→21:29)
[2019-01-12] MEDS: ASPIRIN 325MG EC TABLET PO SCH (09:18)
[2019-01-12] MEDS: HYDROCODONE/ACETAMINOPHEN 10/325MG TABLET PO PRN (09:31)
[2019-01-12] MEDS: BUDESONIDE 0.5MG/2ML NEB HHN SCH (09:36)
[2019-01-12] MEDS: LEVOFLOXACIN 500MG TABLET PO SCH (10:27)
[2019-01-12] MEDS: RISPERIDONE 0.25MG TABLET PO SCH (21:00)
[2019-01-12] MEDS: DOXAZOSIN MESYLATE 4MG TABLET PO SCH (21:28)
== END 2019-01-12 22:05 | disposition home or self-care (01) | DRG 291 ==
LOC: ER 04:00 → 5EST 04:58 → ENRESERV 07:03 → SUPCPDRO 07:07
PROVIDERS: ADMIT Internal Medicine; ATTEND Internal Medicine
PROC: 5A09357 Assistance with Respiratory Ventilation, Less than 24 Consecutive Hours, Continuous Positive Airway Pressure (ICD-10-PCS; principal; 2019-01-09)
DX: I11.0 Hypertensive heart disease with heart failure (principal); J96.20 Acute and chronic respiratory failure, unspecified whether with hypoxia or hypercapnia; J44.1 Chronic obstructive pulmonary disease with (acute) exacerbation; E44.0 Moderate protein-calorie malnutrition; I48.92 Unspecified atrial flutter; I50.43 Acute on chronic combined systolic (congestive) and diastolic (congestive) heart failure; I27.20 Pulmonary hypertension, unspecified; R74.8 Abnormal levels of other serum enzymes; D63.8 Anemia in other chronic diseases classified elsewhere; E03.9 Hypothyroidism, unspecified; E05.90 Thyrotoxicosis, unspecified without thyrotoxic crisis or storm; F41.0 Panic disorder [episodic paroxysmal anxiety]; I34.0 Nonrheumatic mitral (valve) insufficiency; Z96.643 Presence of artificial hip joint, bilateral; I48.0 Paroxysmal atrial fibrillation; K21.9 Gastro-esophageal reflux disease without esophagitis; Z87.891 Personal history of nicotine dependence; Z99.81 Dependence on supplemental oxygen; Z88.0 Allergy status to penicillin; Z88.1 Allergy status to other antibiotic agents; Z68.25 Body mass index [BMI] 25.0-25.9, adult
CPT/HCPCS: 36415; 36600; 71045; 80061; 80162; 80305; 82375; 82550; 82553; 82805; 83036; 83880; 84439; 84443; 84484; 93005; 93970; 94644; 94660; 96365; 96375; 99285; J1885; J1940; J1956; J2930; J3475; J7050; J7611; J7620; J7626

== ENCOUNTER 2019-01-23 09:16 | Inpatient (IN) | payer MEDICARE, MEDICAID ==
[~2019-01-23] VITALS: Ht 182.9 cm; Wt 89.8 kg
[2019-01-23] MEDS ORDERED: MORPHINE SULFATE 4 MG/ML CPJ (NOT FOR IM USE) IV STA (09:28)
[2019-01-23] MEDS ORDERED: ONDANSETRON HCL 4MG/2ML INJ IV STA (09:28)
[2019-01-23] MEDS ORDERED: ASPIRIN 81MG TABLET PO ONE (09:30)
[2019-01-23] MEDS ORDERED: NITROGLYCERIN OINT 1GM/INCH UDPKT TD ONE (09:30)
[2019-01-23] MEDS ORDERED: ALBUTEROL (0.083%) 2.5MG/3ML NEB HHN STA (09:58)
[2019-01-23 10:10] LABS: BASOPHILS % 0.6 % (0.0-2.0); CHLORIDE 102 mEq/L (98-107); EOSINOPHILS % 2.1 % (0.0-5.0); HEMATOCRIT. 27.1 % (36.0-48.0); HEMOGLOBIN. 8.2 g/dL (12.0-16.0); MEAN CORPUSCULAR VOLUME 89.2 fL (81.0-99.0); MEAN PLATELET VOLUME 7.3 fl (7.4-10.4); MONOCYTES % 12.1 % (2.0-8.0); NEUTROPHILS % 71.2 % (40.0-76.0); PLATELET 313 x1000/uL (130-400); RED BLOOD CELL COUNT 3.04 mill/uL (4.2-5.4); RED CELL DISTRIBUTION WIDTH 17.6 % (11.6-14.6)
[2019-01-23 10:12] LABS: PROTHROMBIN TIME 10.8 sec (9.6-11.0)
[2019-01-23] MEDS ORDERED: POTASSIUM CHLORIDE 20MEQ TABLET SR PO ONE (10:30)
[2019-01-23] MEDS ORDERED: FUROSEMIDE 20MG/2ML VIAL IVP ONE (10:30)
[2019-01-23] MEDS ORDERED: DIPHENHYDRAMINE 50MG/ML VIAL IV PRN (11:00)
[2019-01-23] MEDS ORDERED: LORAZEPAM 2MG/ML CPJ IV PRN (11:00)
[2019-01-23] MEDS ORDERED: NA PHOS,M-B/NA PHOS,DI-BA ENEMA 118ML PR PRN (11:00)
[2019-01-23] MEDS ORDERED: ACETAMINOPHEN 325MG TABLET PO PRN (11:00)
[2019-01-23] MEDS ORDERED: ONDANSETRON HCL 4MG/2ML INJ IV PRN (11:00)
[2019-01-23 11:40] LABS: CHLORIDE 102 mEq/L (98-107)
[2019-01-23 12:25] LABS: CLARITY URINE CLEAR (CLEAR); COLOR URINE YELLOW (YELLOW); KETONES URINE NEGATIVE (NEGATIVE); LEUKOCYTE ESTERASE URINE TRACE (NEGATIVE); NITRITE URINE NEGATIVE (NEGATIVE); OCCULT BLOOD URINE NEGATIVE (NEGATIVE); PROTEIN URINE NEGATIVE (NEGATIVE); SPECIFIC GRAVITY URINE 1.015 (1.005-1.030)
[2019-01-23 12:59] VITALS: BP 123/64
[2019-01-23 13:01] LABS: *AMPHETAMINES SCREEN URINE NEGATIVE (NEGATIVE); *BARBITURATES SCREEN URINE NEGATIVE (NEGATIVE); *BENZODIAZEPINES SCREEN URINE PRESUMTIVE POSITIVE (NEGATIVE); *COCAINE SCREEN URINE NEGATIVE (NEGATIVE); METHADONE URINE SCREEN NEGATIVE (NEGATIVE); OPIATES URINE SCREEN PRESUMTIVE POSITIVE (NEGATIVE); PHENCYCLIDINE URINE SCREEN NEGATIVE (NEGATIVE)
[2019-01-23 13:02] LABS: CANNABINOID URINE SCREEN NEGATIVE (NEGATIVE)
[2019-01-23 14:00] VITALS: BP 97/50
[2019-01-23 16:00] VITALS: BP 100/58
[2019-01-23 18:00] VITALS: BP 108/66
[2019-01-23 20:00] VITALS: BP 103/57
[2019-01-23] MEDS: MORPHINE SULFATE 2 MG/ML CPJ (NOT FOR IM USE) IV PRN (20:39)
[2019-01-23] MEDS ORDERED: DIAZEPAM 10 MG PO PRN (21:15)
[2019-01-23] MEDS ORDERED: DIAZEPAM 5 MG TABLET PO PRN (21:30)
[2019-01-23 22:00] VITALS: BP 115/62
[2019-01-23] MEDS: SOTALOL HCL 80MG TABLET PO SCH (22:00)
[2019-01-23] MEDS: DILTIAZEM HCL 120MG CAPSULE CD 24HR PO SCH (22:15)
[2019-01-24] VITALS (83 sets, daily range): BP systolic 30–174; BP diastolic 19–101
[2019-01-24 00:56] LABS: BG BASE EXCESS 10.5 mmol/L (-2.0-2.0); BG CARBOXYHEMOGLOBIN 2.2 % (0.5-1.5); BG DEOXYHEMOGLOBIN 9.8 % (0.0-5.0); BG FRACTION INSPIRED OXYGEN 28; BG HCO3 ACT 44.2 mmol/L (22.0-26.0); BG METHEMOGLOBIN 0.3 % (0.0-1.5); BG OXYGEN SATURATION 89.9 % (92.0-98.5); BG OXYHEMOGLOBIN 87.7 % (94.0-97.0); BG PCO2 168.7 mmHg (35.0-45.0); BG PH 7.036 (7.350-7.450); BG SAMPLE SITE RIGHT BRACHIAL; BG TOTAL HEMOGLOBIN 8.9 g/dL (12.0-18.0); BG VENT MODE NASAL CANNULA
[2019-01-24 01:07] LABS: PROTHROMBIN TIME 10.7 sec (9.6-11.0)
[2019-01-24] MEDS ORDERED: ETOMIDATE 2MG/ML 10ML VIAL IV ONE (01:28)
[2019-01-24] MEDS ORDERED: SUCCINYLCHOLINE CHLORIDE 200MG/10ML IV ONE (01:28)
[2019-01-24] MEDS ORDERED: NOREPINEPHRINE 8 MG in DEXT 5% WATER 242 ML IV PRN (02:30)
[2019-01-24 02:35] LABS: BG BASE EXCESS 3.5 mmol/L (-2.0-2.0); BG CARBOXYHEMOGLOBIN 1.3 % (0.5-1.5); BG DEOXYHEMOGLOBIN 0.7 % (0.0-5.0); BG FRACTION INSPIRED OXYGEN 50; BG HCO3 ACT 29.5 mmol/L (22.0-26.0); BG METHEMOGLOBIN 0.3 % (0.0-1.5); BG OXYGEN SATURATION 99.3 % (92.0-98.5); BG OXYHEMOGLOBIN 97.7 % (94.0-97.0); BG PCO2 53.6 mmHg (35.0-45.0); BG PH 7.359 (7.350-7.450); BG PO2 193.9 mmHg (75.0-100.0); BG SAMPLE SITE LEFT RADIAL; BG TIDAL VOLUME(mL) 500 mL; BG VENT MODE VENT - A/C; BG VENT RATE 14 set
[2019-01-24] MEDS ORDERED: PROPOFOL 10MG/ML 100ML 100 ML IV PRN (02:45)
[2019-01-24] MEDS: IPRATROPIUM/ALBUTEROL 0.5-3(2.5)MG/3ML NEB HHN SCH ×5 (04:32→20:02)
[2019-01-24 05:51] LABS: HEMATOCRIT. 26.6 % (36.0-48.0); MEAN CORPUSCULAR HEMOGLOBIN 27.4 pg (28.0-32.0); MEAN CORPUSCULAR VOLUME 91.3 fL (81.0-99.0); MEAN PLATELET VOLUME 7.3 fl (7.4-10.4); PLATELET 324 x1000/uL (130-400); RED BLOOD CELL COUNT 2.91 mill/uL (4.2-5.4); RED CELL DISTRIBUTION WIDTH 17.6 % (11.6-14.6)
[2019-01-24 06:06] LABS: CHLORIDE 102 mEq/L (98-107)
[2019-01-24 06:27] LABS: LDL CHOLESTEROL 77 mg/dL (5-100)
[2019-01-24 06:29] LABS: HDL CHOLESTEROL 81 mg/dL (40-59); T4 FREE 0.76 ng/dL (0.76-1.46)
[2019-01-24 06:42] LABS: DIGOXIN 0.7 ng/mL (0.9-2.0)
[2019-01-24] MEDS: BLOOD SUGAR DIAGNOSTIC STRIP TEST SCH ×4 (06:47→20:52)
[2019-01-24] MEDS: SOTALOL HCL 80MG TABLET PO SCH ×2 (09:00→20:51)
[2019-01-24] MEDS: DILTIAZEM HCL 120MG CAPSULE CD 24HR PO SCH (09:00)
[2019-01-24] MEDS: ASPIRIN 81MG EC TABLET PO SCH (09:03)
[2019-01-24] MEDS: MORPHINE SULFATE 2 MG/ML CPJ (NOT FOR IM USE) IV PRN ×2 (09:04→20:51)
[2019-01-24 09:27] LABS: BG BASE EXCESS 8.3 mmol/L (-2.0-2.0); BG CARBOXYHEMOGLOBIN 1.5 % (0.5-1.5); BG DEOXYHEMOGLOBIN 0.7 % (0.0-5.0); BG FRACTION INSPIRED OXYGEN 50; BG HCO3 ACT 33.5 mmol/L (22.0-26.0); BG METHEMOGLOBIN 0.1 % (0.0-1.5); BG OXYGEN SATURATION 99.3 % (92.0-98.5); BG OXYHEMOGLOBIN 97.7 % (94.0-97.0); BG PCO2 51.1 mmHg (35.0-45.0); BG PH 7.434 (7.350-7.450); BG PO2 151.6 mmHg (75.0-100.0); BG SAMPLE SITE RIGHT RADIAL; BG TIDAL VOLUME(mL) 500 mL; BG VENT MODE VENT - A/C; BG VENT RATE 14 set
[2019-01-24] MEDS ORDERED: LORAZEPAM 2MG/ML CPJ IV PRN (10:15)
[2019-01-24] MEDS: METHYLPREDNISOLONE SOD SUCC 40 MG/ML VIAL IV SCH ×3 (11:00→23:28)
[2019-01-24] MEDS: HYDROCODONE/ACETAMINOPHEN 10/325MG TABLET PO PRN ×2 (11:25→16:52)
[2019-01-24] MEDS: DIAZEPAM 5 MG TABLET PO PRN (14:15)
[2019-01-24 15:31] LABS: NUCLEATED RED BLOOD CELLS 1 /100 WBC
[2019-01-24 15:33] LABS: PLATELET ESTIMATE NORMAL
[2019-01-24] MEDS: DIGOXIN 125MCG TABLET PO SCH (18:31)
[2019-01-25] VITALS (72 sets, daily range): BP systolic 127–180; BP diastolic 42–105
[2019-01-25] MEDS: IPRATROPIUM/ALBUTEROL 0.5-3(2.5)MG/3ML NEB HHN SCH ×6 (00:08→20:56)
[2019-01-25] MEDS: CLONIDINE 0.1MG TABLET PO PRN ×2 (00:36→15:31)
[2019-01-25] MEDS: DIAZEPAM 5 MG TABLET PO PRN ×2 (00:46→15:49)
[2019-01-25] MEDS: MORPHINE SULFATE 2 MG/ML CPJ (NOT FOR IM USE) IV PRN ×2 (03:31→19:11)
[2019-01-25 05:46] LABS: HEMATOCRIT. 22.3 % (36.0-48.0); MEAN CORPUSCULAR HEMOGLOBIN 27.2 pg (28.0-32.0); MEAN CORPUSCULAR VOLUME 86.5 fL (81.0-99.0); MEAN PLATELET VOLUME 7.3 fl (7.4-10.4); PLATELET 241 x1000/uL (130-400); RED BLOOD CELL COUNT 2.58 mill/uL (4.2-5.4); RED CELL DISTRIBUTION WIDTH 16.8 % (11.6-14.6)
[2019-01-25] MEDS: METHYLPREDNISOLONE SOD SUCC 40 MG/ML VIAL IV SCH ×2 (06:16→14:32)
[2019-01-25] MEDS: BLOOD SUGAR DIAGNOSTIC STRIP TEST SCH ×4 (06:17→20:53)
[2019-01-25] MEDS: HYDROCODONE/ACETAMINOPHEN 10/325MG TABLET PO PRN ×3 (07:06→20:53)
[2019-01-25 07:21] LABS: BG BASE EXCESS 12.3 mmol/L (-2.0-2.0); BG CARBOXYHEMOGLOBIN 1.7 % (0.5-1.5); BG DEOXYHEMOGLOBIN 4.2 % (0.0-5.0); BG HCO3 ACT 38.1 mmol/L (22.0-26.0); BG METHEMOGLOBIN 0.2 % (0.0-1.5); BG OXYGEN SATURATION 95.7 % (92.0-98.5); BG OXYHEMOGLOBIN 93.9 % (94.0-97.0); BG PH 7.421 (7.350-7.450); BG SAMPLE SITE RIGHT RADIAL; BG TIDAL VOLUME(mL) 500 mL; BG TOTAL HEMOGLOBIN 7.6 g/dL (12.0-18.0); BG VENT MODE VENT - SIMV; BG VENT RATE 10 set
[2019-01-25] MEDS: ASPIRIN 81MG EC TABLET PO SCH (09:00)
[2019-01-25] MEDS: SOTALOL HCL 80MG TABLET PO SCH ×2 (09:00→20:51)
[2019-01-25] MEDS: DILTIAZEM HCL 120MG CAPSULE CD 24HR PO SCH (09:00)
[2019-01-25] MEDS ORDERED: SODIUM CHLORIDE 0.9% 500 ML IV SCH (10:30)
[2019-01-25] MEDS: LEVOFLOXACIN 750MG PREMIX 150 ML IV SCH (11:21)
[2019-01-25 11:31] LABS: PLATELET ESTIMATE NORMAL
[2019-01-25 12:00] LABS: BG BASE EXCESS 9.4 mmol/L (-2.0-2.0); BG CARBOXYHEMOGLOBIN 1.4 % (0.5-1.5); BG DEOXYHEMOGLOBIN 4.7 % (0.0-5.0); BG FRACTION INSPIRED OXYGEN 35; BG HCO3 ACT 35.6 mmol/L (22.0-26.0); BG METHEMOGLOBIN 0.3 % (0.0-1.5); BG OXYGEN SATURATION 95.2 % (92.0-98.5); BG OXYHEMOGLOBIN 93.6 % (94.0-97.0); BG PH 7.384 (7.350-7.450); BG PO2 85.4 mmHg (75.0-100.0); BG PRESSURE SUPPORT 8; BG SAMPLE SITE RIGHT BRACHIAL; BG TOTAL HEMOGLOBIN 7.8 g/dL (12.0-18.0); BG VENT MODE VENT - CPAP
[2019-01-25] MEDS: METRONIDAZOLE 500 MG PREMIX 100 ML IV SCH ×4 (14:00→21:54)
[2019-01-25] MEDS ORDERED: PIPERACILLIN/TAZOBACTAM 2.25 G in DEXTROSE 5% WATER 50 ML IV SCH (14:00)
[2019-01-25] MEDS: DIGOXIN 125MCG TABLET PO SCH (17:18)
[2019-01-25] MEDS: METHIMAZOLE 5MG TABLET NG SCH (17:18)
[2019-01-25] MEDS: HYDRALAZINE HCL 100MG TABLET PO SCH ×2 (17:18→21:54)
[2019-01-25] MEDS: DEXAMETHASONE 4MG/ML 1ML VIAL IV SCH (18:25)
[2019-01-25] MEDS: BENAZEPRIL 10MG TABLET PO SCH (20:50)
[2019-01-25] MEDS ORDERED: HYDRALAZINE HCL 100MG TABLET PO SCH (22:00)
[2019-01-26] VITALS (35 sets, daily range): BP systolic 139–186; BP diastolic 57–118
[2019-01-26] MEDS: DEXAMETHASONE 4MG/ML 1ML VIAL IV SCH ×5 (00:20→23:45)
[2019-01-26] MEDS: IPRATROPIUM/ALBUTEROL 0.5-3(2.5)MG/3ML NEB HHN SCH ×6 (00:39→20:10)
[2019-01-26] MEDS: HYDROCODONE/ACETAMINOPHEN 10/325MG TABLET PO PRN ×3 (01:48→21:44)
[2019-01-26 05:51] LABS: HEMOGLOBIN. 7.1 g/dL (12.0-16.0); MEAN CORPUSCULAR HEMOGLOBIN 26.4 pg (28.0-32.0); MEAN CORPUSCULAR VOLUME 86.1 fL (81.0-99.0); MEAN PLATELET VOLUME 7.6 fl (7.4-10.4); PLATELET 231 x1000/uL (130-400); RED BLOOD CELL COUNT 2.67 mill/uL (4.2-5.4); RED CELL DISTRIBUTION WIDTH 16.9 % (11.6-14.6)
[2019-01-26] MEDS: BLOOD SUGAR DIAGNOSTIC STRIP TEST SCH ×4 (06:40→21:10)
[2019-01-26] MEDS: METRONIDAZOLE 500 MG PREMIX 100 ML IV SCH ×3 (06:41→21:10)
[2019-01-26] MEDS: HYDRALAZINE HCL 100MG TABLET PO SCH ×3 (06:41→21:10)
[2019-01-26 08:27] LABS: BG BASE EXCESS 9.8 mmol/L (-2.0-2.0); BG CARBOXYHEMOGLOBIN 1.5 % (0.5-1.5); BG DEOXYHEMOGLOBIN 3.7 % (0.0-5.0); BG FRACTION INSPIRED OXYGEN 35; BG HCO3 ACT 35.5 mmol/L (22.0-26.0); BG METHEMOGLOBIN 0.3 % (0.0-1.5); BG OXYGEN SATURATION 96.2 % (92.0-98.5); BG OXYHEMOGLOBIN 94.5 % (94.0-97.0); BG PCO2 57.5 mmHg (35.0-45.0); BG PH 7.409 (7.350-7.450); BG PO2 85.8 mmHg (75.0-100.0); BG PRESSURE SUPPORT 12; BG SAMPLE SITE RIGHT BRACHIAL; BG TIDAL VOLUME(mL) 500 mL; BG TOTAL HEMOGLOBIN 7.6 g/dL (12.0-18.0); BG VENT MODE VENT - SIMV; BG VENT RATE 10 set
[2019-01-26] MEDS: METHIMAZOLE 5MG TABLET NG SCH ×3 (08:46→17:41)
[2019-01-26] MEDS: ASPIRIN 81MG EC TABLET PO SCH (08:46)
[2019-01-26] MEDS: BENAZEPRIL 10MG TABLET PO SCH ×2 (08:46→21:10)
[2019-01-26] MEDS: DILTIAZEM HCL 120MG CAPSULE CD 24HR PO SCH (08:47)
[2019-01-26] MEDS: SOTALOL HCL 80MG TABLET PO SCH ×2 (08:47→21:00)
[2019-01-26] MEDS: SODIUM CHLORIDE 0.45% 1,000 ML IV SCH (09:00)
[2019-01-26] MEDS ORDERED: PROPOFOL 10MG/ML 100ML 100 ML IV PRN (09:00)
[2019-01-26 09:13] LABS: PLATELET ESTIMATE NORMAL
[2019-01-26] MEDS: DIAZEPAM 5 MG TABLET PO PRN (13:19)
[2019-01-26] MEDS: MORPHINE SULFATE 2 MG/ML CPJ (NOT FOR IM USE) IV PRN (15:02)
[2019-01-26] MEDS: DIGOXIN 125MCG TABLET PO SCH (17:41)
[2019-01-27] VITALS (38 sets, daily range): BP systolic 113–169; BP diastolic 50–104
[2019-01-27] MEDS: IPRATROPIUM/ALBUTEROL 0.5-3(2.5)MG/3ML NEB HHN SCH ×6 (00:08→21:23)
[2019-01-27] MEDS: SODIUM CHLORIDE 0.45% 1,000 ML IV SCH ×2 (05:00→10:00)
[2019-01-27] MEDS: DEXAMETHASONE 4MG/ML 1ML VIAL IV SCH ×3 (06:06→17:54)
[2019-01-27] MEDS: HYDRALAZINE HCL 100MG TABLET PO SCH ×3 (06:10→21:46)
[2019-01-27] MEDS: HYDROCODONE/ACETAMINOPHEN 10/325MG TABLET PO PRN ×2 (06:10→11:23)
[2019-01-27] MEDS: METRONIDAZOLE 500 MG PREMIX 100 ML IV SCH ×3 (06:10→21:46)
[2019-01-27] MEDS: BLOOD SUGAR DIAGNOSTIC STRIP TEST SCH ×4 (06:11→21:46)
[2019-01-27] MEDS: SOTALOL HCL 80MG TABLET PO SCH ×2 (08:56→21:45)
[2019-01-27] MEDS: DILTIAZEM HCL 120MG CAPSULE CD 24HR PO SCH ×2 (08:56→08:58)
[2019-01-27] MEDS: DIAZEPAM 5 MG TABLET PO PRN (08:56)
[2019-01-27] MEDS: ASPIRIN 81MG EC TABLET PO SCH (08:56)
[2019-01-27] MEDS: METHIMAZOLE 5MG TABLET NG SCH ×3 (08:56→17:54)
[2019-01-27] MEDS: BENAZEPRIL 10MG TABLET PO SCH ×2 (08:56→21:45)
[2019-01-27 09:04] LABS: BG BASE EXCESS 7.7 mmol/L (-2.0-2.0); BG CARBOXYHEMOGLOBIN 0.6 % (0.5-1.5); BG DEOXYHEMOGLOBIN 3.9 % (0.0-5.0); BG FRACTION INSPIRED OXYGEN 35; BG HCO3 ACT 33.1 mmol/L (22.0-26.0); BG METHEMOGLOBIN 0.3 % (0.0-1.5); BG OXYGEN SATURATION 96.1 % (92.0-98.5); BG OXYHEMOGLOBIN 95.2 % (94.0-97.0); BG PCO2 52.3 mmHg (35.0-45.0); BG PH 7.419 (7.350-7.450); BG PO2 87.6 mmHg (75.0-100.0); BG PRESSURE SUPPORT 12; BG SAMPLE SITE RIGHT BRACHIAL; BG TIDAL VOLUME(mL) 500 mL; BG VENT MODE VENT - SIMV; BG VENT RATE 10 set
[2019-01-27] MEDS: LEVOFLOXACIN 750MG PREMIX 150 ML IV SCH (11:24)
[2019-01-27] MEDS: RACEPINEPHRINE 2.25% 0.5ML NEB VIAL HHN PRN (11:45)
[2019-01-27] MEDS: MORPHINE SULFATE 2 MG/ML CPJ (NOT FOR IM USE) IV PRN ×2 (13:24→21:45)
[2019-01-27] MEDS ORDERED: SODIUM CHLORIDE 0.9% 500 ML IV ONE (14:45)
[2019-01-27] MEDS: DIGOXIN 125MCG TABLET PO SCH (18:00)
[2019-01-28] VITALS (19 sets, daily range): BP systolic 117–146; BP diastolic 41–96
[2019-01-28] MEDS: IPRATROPIUM/ALBUTEROL 0.5-3(2.5)MG/3ML NEB HHN SCH ×6 (01:07→20:35)
[2019-01-28] MEDS: DEXAMETHASONE 4MG/ML 1ML VIAL IV SCH ×4 (02:19→18:00)
[2019-01-28] MEDS: HYDROCODONE/ACETAMINOPHEN 10/325MG TABLET PO PRN ×2 (02:22→10:07)
[2019-01-28] MEDS: SODIUM CHLORIDE 0.45% 1,000 ML IV SCH ×2 (02:26→21:00)
[2019-01-28] MEDS: DIAZEPAM 5 MG TABLET PO PRN (05:52)
[2019-01-28] MEDS: METRONIDAZOLE 500 MG PREMIX 100 ML IV SCH ×3 (06:00→22:10)
[2019-01-28] MEDS: BLOOD SUGAR DIAGNOSTIC STRIP TEST SCH ×4 (06:02→22:08)
[2019-01-28] MEDS: HYDRALAZINE HCL 100MG TABLET PO SCH ×2 (06:09→14:00)
[2019-01-28 07:34] LABS: HEMATOCRIT. 25.9 % (36.0-48.0); HEMOGLOBIN. 8.1 g/dL (12.0-16.0); MEAN CORPUSCULAR HEMOGLOBIN 26.7 pg (28.0-32.0); MEAN CORPUSCULAR VOLUME 86.1 fL (81.0-99.0); MEAN PLATELET VOLUME 7.7 fl (7.4-10.4); PLATELET 202 x1000/uL (130-400); RED BLOOD CELL COUNT 3.01 mill/uL (4.2-5.4); RED CELL DISTRIBUTION WIDTH 16.7 % (11.6-14.6)
[2019-01-28] MEDS: SOTALOL HCL 80MG TABLET PO SCH ×2 (09:57→22:08)
[2019-01-28] MEDS: ASPIRIN 81MG EC TABLET PO SCH (09:57)
[2019-01-28] MEDS: METHIMAZOLE 5MG TABLET NG SCH ×3 (09:57→17:00)
[2019-01-28] MEDS: BENAZEPRIL 10MG TABLET PO SCH ×2 (09:58→22:08)
[2019-01-28] MEDS: DILTIAZEM HCL 120MG CAPSULE CD 24HR PO SCH (09:58)
[2019-01-28] MEDS: DOCUSATE SODIUM 100MG CAPSULE PO PRN (09:58)
[2019-01-28 10:48] LABS: PLATELET ESTIMATE NORMAL
[2019-01-28] MEDS ORDERED: LIDOCAINE HCL 1% 20ML VIAL (Pyxis) INJ ONE (14:18)
[2019-01-28] MEDS ORDERED: SODIUM BICARBONATE 4% (2.4MEQ) 5ML VIAL IV ONE (14:18)
[2019-01-28] MEDS: DIGOXIN 125MCG TABLET PO SCH (18:00)
[2019-01-28] MEDS: MORPHINE SULFATE 2 MG/ML CPJ (NOT FOR IM USE) IV PRN (19:05)
[2019-01-29] VITALS (12 sets, daily range): BP systolic 123–150; BP diastolic 33–70
[2019-01-29] MEDS: IPRATROPIUM/ALBUTEROL 0.5-3(2.5)MG/3ML NEB HHN SCH ×6 (00:13→20:43)
[2019-01-29] MEDS: DEXAMETHASONE 4MG/ML 1ML VIAL IV SCH ×2 (00:24→06:46)
[2019-01-29] MEDS: HYDRALAZINE HCL 100MG TABLET PO SCH ×4 (00:25→21:32)
[2019-01-29] MEDS: MORPHINE SULFATE 2 MG/ML CPJ (NOT FOR IM USE) IV PRN ×2 (04:29→18:22)
[2019-01-29] MEDS: METRONIDAZOLE 500 MG PREMIX 100 ML IV SCH (06:46)
[2019-01-29] MEDS: BLOOD SUGAR DIAGNOSTIC STRIP TEST SCH ×4 (06:50→21:20)
[2019-01-29] MEDS: DIAZEPAM 5 MG TABLET PO PRN (07:34)
[2019-01-29] MEDS: DOCUSATE SODIUM 100MG CAPSULE PO PRN ×2 (07:34→09:08)
[2019-01-29] MEDS: DILTIAZEM HCL 120MG CAPSULE CD 24HR PO SCH (09:08)
[2019-01-29] MEDS: ASPIRIN 81MG EC TABLET PO SCH (09:08)
[2019-01-29] MEDS: BENAZEPRIL 10MG TABLET PO SCH ×2 (09:08→21:32)
[2019-01-29] MEDS: SOTALOL HCL 80MG TABLET PO SCH ×2 (09:09→21:00)
[2019-01-29] MEDS: METHIMAZOLE 5MG TABLET NG SCH ×3 (09:09→17:25)
[2019-01-29 11:01] LABS: HEMATOCRIT. 25.5 % (36.0-48.0); HEMOGLOBIN. 7.8 g/dL (12.0-16.0); MEAN CORPUSCULAR HEMOGLOBIN 26.2 pg (28.0-32.0); MEAN CORPUSCULAR VOLUME 86.1 fL (81.0-99.0); MEAN PLATELET VOLUME 7.8 fl (7.4-10.4); PLATELET 237 x1000/uL (130-400); RED BLOOD CELL COUNT 2.97 mill/uL (4.2-5.4); RED CELL DISTRIBUTION WIDTH 16.8 % (11.6-14.6)
[2019-01-29 11:47] LABS: PLATELET ESTIMATE NORMAL
[2019-01-29] MEDS: RACEPINEPHRINE 2.25% 0.5ML NEB VIAL HHN PRN ×3 (11:51→15:55)
[2019-01-29] MEDS: VANCOMYCIN HCL 1000 MG/20 ML ORAL PO SCH ×2 (12:00→17:25)
[2019-01-29] MEDS: IPRATROPIUM/ALBUTEROL 0.5-3(2.5)MG/3ML NEB INH PRN (13:16)
[2019-01-29] MEDS: SODIUM CHLORIDE 0.45% 1,000 ML IV SCH (16:54)
[2019-01-29] MEDS: PREDNISONE 20MG TABLET PO SCH (17:25)
[2019-01-29] MEDS: DIGOXIN 125MCG TABLET PO SCH ×2 (17:25→17:26)
[2019-01-29] MEDS: GUAIFENESIN 200MG/10ML SUGAR FREE UDC PO PRN (21:32)
[2019-01-30] VITALS (11 sets, daily range): BP systolic 110–149; BP diastolic 44–64
[2019-01-30] MEDS: VANCOMYCIN HCL 1000 MG/20 ML ORAL PO SCH ×4 (00:24→18:10)
[2019-01-30] MEDS: IPRATROPIUM/ALBUTEROL 0.5-3(2.5)MG/3ML NEB HHN SCH ×6 (00:30→19:57)
[2019-01-30] MEDS: DIAZEPAM 5 MG TABLET PO PRN ×2 (01:36→21:38)
[2019-01-30] MEDS: HYDRALAZINE HCL 100MG TABLET PO SCH ×3 (05:39→23:15)
[2019-01-30] MEDS: BLOOD SUGAR DIAGNOSTIC STRIP TEST SCH ×4 (06:22→21:00)
[2019-01-30 06:26] LABS: HEMATOCRIT. 24.1 % (36.0-48.0); HEMOGLOBIN. 7.6 g/dL (12.0-16.0); MEAN CORPUSCULAR HEMOGLOBIN 26.8 pg (28.0-32.0); MEAN CORPUSCULAR VOLUME 84.8 fL (81.0-99.0); MEAN PLATELET VOLUME 7.6 fl (7.4-10.4); PLATELET 230 x1000/uL (130-400); RED BLOOD CELL COUNT 2.85 mill/uL (4.2-5.4); RED CELL DISTRIBUTION WIDTH 16.7 % (11.6-14.6)
[2019-01-30 06:52] LABS: DIGOXIN 0.6 ng/mL (0.9-2.0)
[2019-01-30] MEDS: METHIMAZOLE 5MG TABLET NG SCH ×3 (09:01→18:06)
[2019-01-30] MEDS: ASPIRIN 81MG EC TABLET PO SCH (09:01)
[2019-01-30] MEDS: SOTALOL HCL 80MG TABLET PO SCH ×2 (09:02→21:39)
[2019-01-30] MEDS: BENAZEPRIL 10MG TABLET PO SCH ×2 (09:02→21:37)
[2019-01-30] MEDS: PREDNISONE 20MG TABLET PO SCH ×2 (09:02→18:05)
[2019-01-30] MEDS ORDERED: HYDROCODONE/ACETAMINOPHEN 10/325MG TABLET PO PRN (09:30)
[2019-01-30] MEDS: DILTIAZEM HCL 120MG CAPSULE CD 24HR PO SCH (09:31)
[2019-01-30] MEDS: GUAIFENESIN 200MG/10ML SUGAR FREE UDC PO PRN ×3 (10:04→21:40)
[2019-01-30] MEDS: SODIUM CHLORIDE 0.45% 1,000 ML IV SCH (13:03)
[2019-01-30] MEDS: HYDROCODONE/ACETAMINOPHEN 10/325MG TABLET PO PRN (14:05)
[2019-01-30] MEDS: DOCUSATE SODIUM 100MG CAPSULE PO PRN (18:06)
[2019-01-30 19:49] LABS: PLATELET ESTIMATE NORMAL
[2019-01-31] VITALS (15 sets, daily range): BP systolic 119–157; BP diastolic 47–72
[2019-01-31] MEDS: VANCOMYCIN HCL 1000 MG/20 ML ORAL PO SCH ×4 (00:22→17:28)
[2019-01-31] MEDS: GUAIFENESIN 200MG/10ML SUGAR FREE UDC PO PRN (00:33)
[2019-01-31] MEDS: HYDROCODONE/ACETAMINOPHEN 10/325MG TABLET PO PRN ×3 (00:35→15:33)
[2019-01-31] MEDS: IPRATROPIUM/ALBUTEROL 0.5-3(2.5)MG/3ML NEB HHN SCH ×6 (04:05→21:25)
[2019-01-31] MEDS: HYDRALAZINE HCL 100MG TABLET PO SCH ×3 (05:49→22:00)
[2019-01-31] MEDS: BLOOD SUGAR DIAGNOSTIC STRIP TEST SCH ×4 (06:25→23:50)
[2019-01-31] MEDS: SODIUM CHLORIDE 0.45% 1,000 ML IV SCH (08:46)
[2019-01-31] MEDS: ASPIRIN 81MG EC TABLET PO SCH (08:47)
[2019-01-31] MEDS: PREDNISONE 20MG TABLET PO SCH (08:48)
[2019-01-31] MEDS: DILTIAZEM HCL 120MG CAPSULE CD 24HR PO SCH (08:50)
[2019-01-31] MEDS: BENAZEPRIL 10MG TABLET PO SCH ×2 (08:51→21:45)
[2019-01-31] MEDS: SOTALOL HCL 80MG TABLET PO SCH ×2 (08:51→21:46)
[2019-01-31] MEDS: METHIMAZOLE 5MG TABLET NG SCH ×3 (08:51→17:28)
[2019-01-31] MEDS: DIAZEPAM 5 MG TABLET PO PRN (12:22)
[2019-02-01] VITALS (15 sets, daily range): BP systolic 116–154; BP diastolic 40–96
[2019-02-01] MEDS: VANCOMYCIN HCL 1000 MG/20 ML ORAL PO SCH ×4 (00:33→17:52)
[2019-02-01] MEDS: IPRATROPIUM/ALBUTEROL 0.5-3(2.5)MG/3ML NEB HHN SCH ×6 (00:43→21:05)
[2019-02-01] MEDS: HYDROCODONE/ACETAMINOPHEN 10/325MG TABLET PO PRN ×2 (02:20→08:27)
[2019-02-01] MEDS: BLOOD SUGAR DIAGNOSTIC STRIP TEST SCH ×4 (06:50→20:46)
[2019-02-01] MEDS: HYDRALAZINE HCL 100MG TABLET PO SCH ×3 (06:55→21:03)
[2019-02-01] MEDS: DILTIAZEM HCL 120MG CAPSULE CD 24HR PO SCH (08:23)
[2019-02-01] MEDS: PREDNISONE 20MG TABLET PO SCH (08:23)
[2019-02-01] MEDS: SOTALOL HCL 80MG TABLET PO SCH ×2 (08:24→20:46)
[2019-02-01] MEDS: ASPIRIN 81MG EC TABLET PO SCH (08:27)
[2019-02-01] MEDS: BENAZEPRIL 10MG TABLET PO SCH ×2 (08:27→20:46)
[2019-02-01] MEDS: METHIMAZOLE 5MG TABLET NG SCH ×3 (08:27→17:51)
[2019-02-01] MEDS: DIAZEPAM 5 MG TABLET PO PRN (13:59)
[2019-02-02] VITALS (7 sets, daily range): BP systolic 125–160; BP diastolic 51–74
[2019-02-02] MEDS: IPRATROPIUM/ALBUTEROL 0.5-3(2.5)MG/3ML NEB HHN SCH ×6 (00:18→20:20)
[2019-02-02] MEDS: VANCOMYCIN HCL 1000 MG/20 ML ORAL PO SCH ×4 (00:19→19:12)
[2019-02-02] MEDS: HYDRALAZINE HCL 100MG TABLET PO SCH ×3 (05:54→22:10)
[2019-02-02] MEDS: BLOOD SUGAR DIAGNOSTIC STRIP TEST SCH ×4 (05:59→21:00)
[2019-02-02] MEDS: PREDNISONE 20MG TABLET PO SCH (10:34)
[2019-02-02] MEDS: METHIMAZOLE 5MG TABLET NG SCH ×3 (10:34→17:00)
[2019-02-02] MEDS: ASPIRIN 81MG EC TABLET PO SCH (10:35)
[2019-02-02] MEDS: SOTALOL HCL 80MG TABLET PO SCH ×2 (10:51→22:10)
[2019-02-02] MEDS: DILTIAZEM HCL 120MG CAPSULE CD 24HR PO SCH (10:52)
[2019-02-02] MEDS: HYDROCODONE/ACETAMINOPHEN 10/325MG TABLET PO PRN ×2 (11:33→22:11)
[2019-02-02] MEDS: BENAZEPRIL 10MG TABLET PO SCH ×2 (14:31→22:10)
[2019-02-02] MEDS: MORPHINE SULFATE 2 MG/ML CPJ (NOT FOR IM USE) IV PRN (14:34)
[2019-02-03] VITALS (7 sets, daily range): BP systolic 136–183; BP diastolic 67–80
[2019-02-03] MEDS: VANCOMYCIN HCL 1000 MG/20 ML ORAL PO SCH ×5 (00:42→21:33)
[2019-02-03] MEDS: IPRATROPIUM/ALBUTEROL 0.5-3(2.5)MG/3ML NEB HHN SCH ×6 (00:43→20:06)
[2019-02-03] MEDS: DIAZEPAM 5 MG TABLET PO PRN (03:08)
[2019-02-03] MEDS: HYDRALAZINE HCL 100MG TABLET PO SCH ×3 (06:49→21:31)
[2019-02-03] MEDS: BLOOD SUGAR DIAGNOSTIC STRIP TEST SCH ×4 (06:59→21:31)
[2019-02-03] MEDS: METHIMAZOLE 5MG TABLET NG SCH ×3 (09:07→19:04)
[2019-02-03] MEDS: ASPIRIN 81MG EC TABLET PO SCH (09:07)
[2019-02-03] MEDS: DILTIAZEM HCL 120MG CAPSULE CD 24HR PO SCH (09:07)
[2019-02-03] MEDS: HYDROCODONE/ACETAMINOPHEN 10/325MG TABLET PO PRN ×3 (09:07→21:30)
[2019-02-03] MEDS: BENAZEPRIL 10MG TABLET PO SCH ×2 (09:07→21:30)
[2019-02-03] MEDS: SOTALOL HCL 80MG TABLET PO SCH ×2 (09:08→21:30)
[2019-02-03] MEDS: PREDNISONE 20MG TABLET PO SCH (09:08)
[2019-02-03 17:21] LABS: HEMATOCRIT. 26.7 % (36.0-48.0); HEMOGLOBIN. 8.1 g/dL (12.0-16.0); MEAN CORPUSCULAR HEMOGLOBIN 26.2 pg (28.0-32.0); MEAN CORPUSCULAR VOLUME 86.1 fL (81.0-99.0); MEAN PLATELET VOLUME 7.5 fl (7.4-10.4); PLATELET 190 x1000/uL (130-400); RED CELL DISTRIBUTION WIDTH 16.9 % (11.6-14.6)
[2019-02-03 17:47] LABS: PLATELET ESTIMATE NORMAL
[2019-02-03] MEDS ORDERED: SODIUM POLYSTYRENE SULFONATE 15 G/60 ML BOT PO NR (20:00)
[2019-02-03] MEDS: BUDESONIDE 0.5MG/2ML NEB HHN SCH (20:06)
[2019-02-04] VITALS: BP 179/62
[2019-02-04] MEDS: IPRATROPIUM/ALBUTEROL 0.5-3(2.5)MG/3ML NEB HHN SCH ×4 (01:16→21:00)
[2019-02-04 04:00] VITALS: BP 172/70
[2019-02-04] MEDS: HYDRALAZINE HCL 100MG TABLET PO SCH ×2 (06:34→13:25)
[2019-02-04] MEDS: VANCOMYCIN HCL 1000 MG/20 ML ORAL PO SCH ×3 (06:34→17:25)
[2019-02-04] MEDS: CLONIDINE 0.1MG TABLET PO PRN (06:34)
[2019-02-04] MEDS: BLOOD SUGAR DIAGNOSTIC STRIP TEST SCH ×4 (06:34→21:00)
[2019-02-04 08:00] VITALS: BP 158/71
[2019-02-04] MEDS: DILTIAZEM HCL 120MG CAPSULE CD 24HR PO SCH (09:56)
[2019-02-04] MEDS: ASPIRIN 81MG EC TABLET PO SCH (09:56)
[2019-02-04] MEDS: METHIMAZOLE 5MG TABLET NG SCH ×3 (09:57→17:20)
[2019-02-04] MEDS: HYDROCODONE/ACETAMINOPHEN 10/325MG TABLET PO PRN (09:57)
[2019-02-04] MEDS: SOTALOL HCL 80MG TABLET PO SCH ×2 (09:57→21:00)
[2019-02-04] MEDS: PREDNISONE 20MG TABLET PO SCH (09:57)
[2019-02-04] MEDS ORDERED: SODIUM POLYSTYRENE SULFONATE 15 G/60 ML BOT PO SCH (10:00)
[2019-02-04 10:14] LABS: BG BASE EXCESS 5.1 mmol/L (-2.0-2.0); BG CARBOXYHEMOGLOBIN 0.3 % (0.5-1.5); BG DEOXYHEMOGLOBIN 5.3 % (0.0-5.0); BG FRACTION INSPIRED OXYGEN 28; BG METHEMOGLOBIN 0.7 % (0.0-1.5); BG OXYGEN SATURATION 94.6 % (92.0-98.5); BG OXYHEMOGLOBIN 93.7 % (94.0-97.0); BG PCO2 62.6 mmHg (35.0-45.0); BG PH 7.327 (7.350-7.450); BG PO2 78.2 mmHg (75.0-100.0); BG SAMPLE SITE RIGHT RADIAL; BG TOTAL HEMOGLOBIN 8.7 g/dL (12.0-18.0); BG VENT MODE NASAL CANNULA
[2019-02-04] MEDS: FUROSEMIDE 40MG/4ML VIAL IVP SCH (10:16)
[2019-02-04 12:00] VITALS: BP 169/73
[2019-02-04 16:00] VITALS: BP 179/71
[2019-02-04] MEDS ORDERED: HYDRALAZINE HCL 25MG TABLET PO SCH (18:00)
[2019-02-04 18:38] LABS: CREATINE KINASE 39 IU/L (26-192)
[2019-02-04] MEDS: BUDESONIDE 0.5MG/2ML NEB HHN SCH (21:03)
[2019-02-04 22:20] LABS: BG BASE EXCESS 9.6 mmol/L (-2.0-2.0); BG CARBOXYHEMOGLOBIN 0.8 % (0.5-1.5); BG DEOXYHEMOGLOBIN 6.1 % (0.0-5.0); BG FRACTION INSPIRED OXYGEN 28; BG HCO3 ACT 37.4 mmol/L (22.0-26.0); BG METHEMOGLOBIN 0.4 % (0.0-1.5); BG OXYGEN SATURATION 93.8 % (92.0-98.5); BG OXYHEMOGLOBIN 92.7 % (94.0-97.0); BG PCO2 76.6 mmHg (35.0-45.0); BG PH 7.307 (7.350-7.450); BG PO2 75.2 mmHg (75.0-100.0); BG SAMPLE SITE RIGHT RADIAL; BG TOTAL HEMOGLOBIN 8.3 g/dL (12.0-18.0); BG VENT MODE NASAL CANNULA
[2019-02-04] MEDS ORDERED: QUETIAPINE FUMARATE 25MG TABLET PO SCH (23:00)
[2019-02-05] VITALS (7 sets, daily range): BP systolic 99–187; BP diastolic 54–82
[2019-02-05] MEDS: HYDROCODONE/ACETAMINOPHEN 10/325MG TABLET PO PRN ×3 (00:06→17:53)
[2019-02-05] MEDS: HYDRALAZINE HCL 100MG TABLET PO SCH ×4 (00:08→22:44)
[2019-02-05 00:21] LABS: BG BASE EXCESS 9.5 mmol/L (-2.0-2.0); BG CARBOXYHEMOGLOBIN 0.5 % (0.5-1.5); BG FRACTION INSPIRED OXYGEN 26; BG HCO3 ACT 36.5 mmol/L (22.0-26.0); BG METHEMOGLOBIN 0.7 % (0.0-1.5); BG OXYGEN SATURATION 92.9 % (92.0-98.5); BG OXYHEMOGLOBIN 91.8 % (94.0-97.0); BG PH 7.348 (7.350-7.450); BG PO2 68.6 mmHg (75.0-100.0); BG SAMPLE SITE RIGHT RADIAL; BG TOTAL HEMOGLOBIN 8.1 g/dL (12.0-18.0); BG VENT MODE NASAL CANNULA
[2019-02-05] MEDS: VANCOMYCIN HCL 1000 MG/20 ML ORAL PO SCH ×3 (00:51→12:36)
[2019-02-05] MEDS: IPRATROPIUM/ALBUTEROL 0.5-3(2.5)MG/3ML NEB HHN SCH ×7 (01:18→23:42)
[2019-02-05] MEDS: BLOOD SUGAR DIAGNOSTIC STRIP TEST SCH ×4 (07:20→20:49)
[2019-02-05] MEDS: BUDESONIDE 0.5MG/2ML NEB HHN SCH ×2 (08:43→19:52)
[2019-02-05] MEDS: FUROSEMIDE 40MG/4ML VIAL IVP SCH (09:16)
[2019-02-05] MEDS: DIAZEPAM 5 MG TABLET PO PRN (09:18)
[2019-02-05] MEDS: PREDNISONE 20MG TABLET PO SCH (09:18)
[2019-02-05] MEDS: DILTIAZEM HCL 120MG CAPSULE CD 24HR PO SCH (09:18)
[2019-02-05] MEDS: SOTALOL HCL 80MG TABLET PO SCH ×2 (09:18→20:48)
[2019-02-05] MEDS: METHIMAZOLE 5MG TABLET NG SCH ×3 (09:18→17:20)
[2019-02-05] MEDS: ASPIRIN 81MG EC TABLET PO SCH (09:18)
[2019-02-05 11:29] LABS: HEMOGLOBIN. 7.6 g/dL (12.0-16.0); MEAN CORPUSCULAR HEMOGLOBIN 26.1 pg (28.0-32.0); MEAN PLATELET VOLUME 7.1 fl (7.4-10.4); PLATELET 139 x1000/uL (130-400); RED BLOOD CELL COUNT 2.91 mill/uL (4.2-5.4)
[2019-02-05] MEDS: AMLODIPINE 2.5MG TABLET PO SCH (12:37)
[2019-02-05] MEDS: RACEPINEPHRINE 2.25% 0.5ML NEB VIAL HHN PRN (15:12)
[2019-02-05] MEDS: HYDRALAZINE HCL 25MG TABLET PO PRN (20:49)
[2019-02-06] VITALS (12 sets, daily range): BP systolic 89–177; BP diastolic 44–89
[2019-02-06] MEDS: HYDROCODONE/ACETAMINOPHEN 10/325MG TABLET PO PRN (00:35)
[2019-02-06] MEDS: DIAZEPAM 5 MG TABLET PO PRN ×2 (02:37→20:12)
[2019-02-06] MEDS: IPRATROPIUM/ALBUTEROL 0.5-3(2.5)MG/3ML NEB HHN SCH ×5 (04:25→21:11)
[2019-02-06 05:15] LABS: PLATELET ESTIMATE NORMAL
[2019-02-06] MEDS: HYDRALAZINE HCL 100MG TABLET PO SCH ×3 (05:32→21:03)
[2019-02-06] MEDS: BLOOD SUGAR DIAGNOSTIC STRIP TEST SCH ×4 (06:14→21:30)
[2019-02-06] MEDS: BUDESONIDE 0.5MG/2ML NEB HHN SCH (07:35)
[2019-02-06] MEDS: METHIMAZOLE 5MG TABLET NG SCH ×3 (08:57→17:00)
[2019-02-06] MEDS: FUROSEMIDE 40MG/4ML VIAL IVP SCH (08:57)
[2019-02-06] MEDS: DILTIAZEM HCL 120MG CAPSULE CD 24HR PO SCH (08:58)
[2019-02-06] MEDS: AMLODIPINE 2.5MG TABLET PO SCH (08:58)
[2019-02-06] MEDS: PREDNISONE 20MG TABLET PO SCH (08:59)
[2019-02-06] MEDS: ASPIRIN 81MG EC TABLET PO SCH (08:59)
[2019-02-06] MEDS: SOTALOL HCL 80MG TABLET PO SCH ×2 (08:59→20:13)
[2019-02-06 09:00] LABS: HEMATOCRIT. 24.6 % (36.0-48.0); HEMOGLOBIN. 7.5 g/dL (12.0-16.0); MEAN CORPUSCULAR HEMOGLOBIN 25.8 pg (28.0-32.0); MEAN CORPUSCULAR VOLUME 85.3 fL (81.0-99.0); MEAN PLATELET VOLUME 7.3 fl (7.4-10.4); PLATELET 148 x1000/uL (130-400); RED BLOOD CELL COUNT 2.89 mill/uL (4.2-5.4); RED CELL DISTRIBUTION WIDTH 17.1 % (11.6-14.6)
[2019-02-06 09:37] LABS: BG CARBOXYHEMOGLOBIN 0.8 % (0.5-1.5); BG DEOXYHEMOGLOBIN 7.8 % (0.0-5.0); BG FRACTION INSPIRED OXYGEN 28; BG METHEMOGLOBIN 0.3 % (0.0-1.5); BG OXYGEN SATURATION 92.1 % (92.0-98.5); BG OXYHEMOGLOBIN 91.1 % (94.0-97.0); BG PCO2 60.4 mmHg (35.0-45.0); BG PH 7.428 (7.350-7.450); BG PO2 62.6 mmHg (75.0-100.0); BG SAMPLE SITE RIGHT RADIAL; BG TOTAL HEMOGLOBIN 8.8 g/dL (12.0-18.0); BG VENT MODE NASAL CANNULA
[2019-02-06 13:37] LABS: PLATELET ESTIMATE NORMAL
[2019-02-06 14:03] LABS: BG BASE EXCESS 12.1 mmol/L (-2.0-2.0); BG BILEVEL POS AIRWAY PRESSURE 15/5; BG CARBOXYHEMOGLOBIN 0.7 % (0.5-1.5); BG DEOXYHEMOGLOBIN 9.8 % (0.0-5.0); BG FRACTION INSPIRED OXYGEN 35; BG HCO3 ACT 38.1 mmol/L (22.0-26.0); BG METHEMOGLOBIN 0.3 % (0.0-1.5); BG OXYGEN SATURATION 90.1 % (92.0-98.5); BG OXYHEMOGLOBIN 89.2 % (94.0-97.0); BG PCO2 60.2 mmHg (35.0-45.0); BG PH 7.419 (7.350-7.450); BG PO2 59.1 mmHg (75.0-100.0); BG SAMPLE SITE RIGHT RADIAL; BG TOTAL HEMOGLOBIN 8.3 g/dL (12.0-18.0); BG VENT MODE MASK - BIPAP
[2019-02-06 14:36] LABS: TOTAL IRON BINDING CAPACITY 295 ug/dL (250-450)
[2019-02-06] MEDS ORDERED: FUROSEMIDE 40MG/4ML VIAL IVP STA (15:22)
[2019-02-06 16:58] LABS: BG BASE EXCESS 12.3 mmol/L (-2.0-2.0); BG BILEVEL POS AIRWAY PRESSURE 18/5; BG CARBOXYHEMOGLOBIN 0.6 % (0.5-1.5); BG FRACTION INSPIRED OXYGEN 50; BG HCO3 ACT 38.5 mmol/L (22.0-26.0); BG METHEMOGLOBIN 0.3 % (0.0-1.5); BG OXYHEMOGLOBIN 98.1 % (94.0-97.0); BG PH 7.404 (7.350-7.450); BG PO2 163.7 mmHg (75.0-100.0); BG SAMPLE SITE RIGHT RADIAL; BG TOTAL HEMOGLOBIN 7.8 g/dL (12.0-18.0); BG VENT MODE MASK - BIPAP; BG VENT RATE 22 set
[2019-02-06] MEDS: LEVOFLOXACIN 500MG PREMIX 100 ML IV SCH (17:53)
[2019-02-06 19:11] LABS: PHOSPHORUS 3.1 mg/dL (2.5-4.9)
[2019-02-07] VITALS (19 sets, daily range): BP systolic 107–157; BP diastolic 53–86
[2019-02-07] MEDS: IPRATROPIUM/ALBUTEROL 0.5-3(2.5)MG/3ML NEB HHN SCH ×6 (01:09→21:03)
[2019-02-07] MEDS: HYDROCODONE/ACETAMINOPHEN 10/325MG TABLET PO PRN (02:44)
[2019-02-07] MEDS: HYDRALAZINE HCL 100MG TABLET PO SCH ×4 (05:09→21:44)
[2019-02-07 07:00] LABS: BASOPHILS % 0.3 % (0.0-2.0); EOSINOPHILS % 0.4 % (0.0-5.0); HEMATOCRIT. 21.6 % (36.0-48.0); LYMPHOCYTES % 7.2 % (20.0-50.0); MEAN CORPUSCULAR VOLUME 85.6 fL (81.0-99.0); MONOCYTES % 8.6 % (2.0-8.0); NEUTROPHILS % 83.5 % (40.0-76.0); PLATELET 134 x1000/uL (130-400); RED BLOOD CELL COUNT 2.52 mill/uL (4.2-5.4); RED CELL DISTRIBUTION WIDTH 17.3 % (11.6-14.6)
[2019-02-07] MEDS: BLOOD SUGAR DIAGNOSTIC STRIP TEST SCH ×4 (07:55→21:27)
[2019-02-07] MEDS: AMLODIPINE 2.5MG TABLET PO SCH (08:04)
[2019-02-07] MEDS: PREDNISONE 20MG TABLET PO SCH (08:04)
[2019-02-07] MEDS: FUROSEMIDE 40MG/4ML VIAL IVP SCH (08:05)
[2019-02-07] MEDS: METHIMAZOLE 5MG TABLET NG SCH ×3 (08:05→17:30)
[2019-02-07] MEDS: ASPIRIN 81MG EC TABLET PO SCH (08:05)
[2019-02-07] MEDS: SOTALOL HCL 80MG TABLET PO SCH ×2 (08:05→21:43)
[2019-02-07 08:11] LABS: HEMOGLOBIN. 6.5 g/dL (12.0-16.0)
[2019-02-07] MEDS: DILTIAZEM HCL 120MG CAPSULE CD 24HR PO SCH (08:38)
[2019-02-07] MEDS: IPRATROPIUM/ALBUTEROL 0.5-3(2.5)MG/3ML NEB INH PRN (17:39)
[2019-02-07] MEDS: LEVOFLOXACIN 500MG PREMIX 100 ML IV SCH (18:35)
[2019-02-07] MEDS: IRON SUCROSE COMPLEX 100 MG/5 ML ML IV SCH (18:35)
[2019-02-07 20:48] LABS: HEMATOCRIT 25.6 % (36.0-48.0)
[2019-02-08] VITALS (12 sets, daily range): BP systolic 124–159; BP diastolic 59–80
[2019-02-08] MEDS: IPRATROPIUM/ALBUTEROL 0.5-3(2.5)MG/3ML NEB HHN SCH ×6 (00:14→20:05)
[2019-02-08] MEDS: HYDRALAZINE HCL 100MG TABLET PO SCH ×3 (05:30→21:43)
[2019-02-08 06:15] LABS: HEMATOCRIT. 25.8 % (36.0-48.0); MEAN CORPUSCULAR HEMOGLOBIN 26.3 pg (28.0-32.0); MEAN CORPUSCULAR VOLUME 84.5 fL (81.0-99.0); MEAN PLATELET VOLUME 7.3 fl (7.4-10.4); PLATELET 126 x1000/uL (130-400); RED BLOOD CELL COUNT 3.05 mill/uL (4.2-5.4); RED CELL DISTRIBUTION WIDTH 17.3 % (11.6-14.6)
[2019-02-08] MEDS: METHIMAZOLE 5MG TABLET NG SCH ×4 (08:05→18:41)
[2019-02-08] MEDS: DILTIAZEM HCL 120MG CAPSULE CD 24HR PO SCH (08:05)
[2019-02-08] MEDS: FUROSEMIDE 40MG/4ML VIAL IVP SCH (08:05)
[2019-02-08] MEDS: AMLODIPINE 2.5MG TABLET PO SCH (08:05)
[2019-02-08] MEDS: PREDNISONE 20MG TABLET PO SCH (08:06)
[2019-02-08] MEDS: SOTALOL HCL 80MG TABLET PO SCH ×2 (08:06→21:41)
[2019-02-08] MEDS: BLOOD SUGAR DIAGNOSTIC STRIP TEST SCH ×4 (08:06→21:34)
[2019-02-08 09:06] LABS: COMPLEMENT C3 68 mg/dL (82-167)
[2019-02-08] MEDS: DEXT 5%/0.45% NACL 1000ML 1,000 ML IV SCH (10:13)
[2019-02-08] MEDS: DIAZEPAM 5 MG TABLET PO PRN (11:42)
[2019-02-08 16:22] LABS: PLATELET ESTIMATE SLIGHTLY DECREASED
[2019-02-08] MEDS ORDERED: MIDAZOLAM HCL 5 MG/5 ML VIAL ONE (16:58)
[2019-02-08] MEDS ORDERED: PROPOFOL 200MG/20ML VIAL IV ONE (16:58)
[2019-02-08] MEDS ORDERED: SUCCINYLCHOLINE CHLORIDE 200MG/10ML IV ONE (17:01)
[2019-02-08 17:12] LABS: ANTI-NUCLEAR ANTIBODIES DIRECT Negative (Negative)
[2019-02-08] MEDS ORDERED: SODIUM CHLORIDE 0.9% 1,000 ML IV ONE (17:22)
[2019-02-08] MEDS ORDERED: HYDROMORPHONE HCL/PF 2MG/ML CPJ IV PRN (17:30)
[2019-02-08] MEDS ORDERED: ONDANSETRON HCL 4MG/2ML INJ IV PRN (17:30)
[2019-02-08] MEDS: IRON SUCROSE COMPLEX 100 MG/5 ML ML IV SCH (18:40)
[2019-02-08] MEDS: LEVOFLOXACIN 500MG PREMIX 100 ML IV SCH (18:41)
[2019-02-09] VITALS (9 sets, daily range): BP systolic 132–161; BP diastolic 47–86
[2019-02-09] MEDS: IPRATROPIUM/ALBUTEROL 0.5-3(2.5)MG/3ML NEB HHN SCH ×6 (00:08→20:07)
[2019-02-09] MEDS: HYDRALAZINE HCL 100MG TABLET PO SCH ×3 (05:49→21:08)
[2019-02-09] MEDS: BLOOD SUGAR DIAGNOSTIC STRIP TEST SCH ×4 (07:30→22:59)
[2019-02-09 07:35] LABS: HEMATOCRIT. 27.4 % (36.0-48.0); HEMOGLOBIN. 8.6 g/dL (12.0-16.0); MEAN CORPUSCULAR HEMOGLOBIN 26.6 pg (28.0-32.0); MEAN CORPUSCULAR VOLUME 85.1 fL (81.0-99.0); MEAN PLATELET VOLUME 7.6 fl (7.4-10.4); PLATELET 158 x1000/uL (130-400); RED BLOOD CELL COUNT 3.22 mill/uL (4.2-5.4); RED CELL DISTRIBUTION WIDTH 17.4 % (11.6-14.6)
[2019-02-09] MEDS: PREDNISONE 20MG TABLET PO SCH (09:01)
[2019-02-09] MEDS: AMLODIPINE 2.5MG TABLET PO SCH (09:01)
[2019-02-09] MEDS: DILTIAZEM HCL 120MG CAPSULE CD 24HR PO SCH (09:01)
[2019-02-09] MEDS: METHIMAZOLE 5MG TABLET NG SCH ×3 (09:02→18:28)
[2019-02-09] MEDS: FUROSEMIDE 40MG/4ML VIAL IVP SCH (09:02)
[2019-02-09] MEDS: SOTALOL HCL 80MG TABLET PO SCH ×2 (09:05→21:09)
[2019-02-09 12:22] LABS: PLATELET ESTIMATE NORMAL
[2019-02-09] MEDS: FLUCONAZOLE 100MG TABLET PO SCH (13:05)
[2019-02-09 14:15] LABS: BG CARBOXYHEMOGLOBIN 0.8 % (0.5-1.5); BG DEOXYHEMOGLOBIN 6.4 % (0.0-5.0); BG FRACTION INSPIRED OXYGEN 28; BG HCO3 ACT 38.3 mmol/L (22.0-26.0); BG METHEMOGLOBIN 0.1 % (0.0-1.5); BG OXYGEN SATURATION 93.5 % (92.0-98.5); BG OXYHEMOGLOBIN 92.7 % (94.0-97.0); BG PCO2 66.3 mmHg (35.0-45.0); BG PH 7.379 (7.350-7.450); BG PO2 71.3 mmHg (75.0-100.0); BG SAMPLE SITE RIGHT RADIAL; BG TOTAL HEMOGLOBIN 10.6 g/dL (12.0-18.0); BG VENT MODE NASAL CANNULA
[2019-02-09] MEDS: DIAZEPAM 5 MG TABLET PO PRN (15:09)
[2019-02-09] MEDS: LEVOFLOXACIN 500MG TABLET PO SCH (17:00)
[2019-02-09] MEDS: IRON SUCROSE COMPLEX 100 MG/5 ML ML IV SCH (18:27)
[2019-02-09] MEDS: HYDROCODONE/ACETAMINOPHEN 10/325MG TABLET PO PRN (18:32)
[2019-02-10] VITALS (12 sets, daily range): BP systolic 129–151; BP diastolic 59–110
[2019-02-10] MEDS: IPRATROPIUM/ALBUTEROL 0.5-3(2.5)MG/3ML NEB HHN SCH ×6 (00:17→20:13)
[2019-02-10] MEDS: DEXT 5%/0.45% NACL 1000ML 1,000 ML IV SCH ×2 (02:23→22:24)
[2019-02-10] MEDS: HYDRALAZINE HCL 100MG TABLET PO SCH ×3 (05:45→21:20)
[2019-02-10] MEDS: MAGNESIUM/ALUMINUM HYDROXIDE/SIMETHICONE 30ML UDC PO PRN (06:11)
[2019-02-10 06:41] LABS: HEMATOCRIT. 26.9 % (36.0-48.0); HEMOGLOBIN. 8.4 g/dL (12.0-16.0); MEAN CORPUSCULAR HEMOGLOBIN 26.8 pg (28.0-32.0); MEAN CORPUSCULAR VOLUME 86.4 fL (81.0-99.0); MEAN PLATELET VOLUME 7.5 fl (7.4-10.4); PLATELET 151 x1000/uL (130-400); RED BLOOD CELL COUNT 3.11 mill/uL (4.2-5.4)
[2019-02-10] MEDS: BLOOD SUGAR DIAGNOSTIC STRIP TEST SCH ×4 (06:56→21:20)
[2019-02-10] MEDS: DOCUSATE SODIUM 100MG CAPSULE PO PRN (08:37)
[2019-02-10] MEDS: FUROSEMIDE 40MG/4ML VIAL IVP SCH (08:37)
[2019-02-10] MEDS: PREDNISONE 5MG TABLET PO SCH (08:37)
[2019-02-10] MEDS: METHIMAZOLE 5MG TABLET NG SCH ×3 (08:38→17:03)
[2019-02-10] MEDS: AMLODIPINE 2.5MG TABLET PO SCH (08:38)
[2019-02-10] MEDS: DILTIAZEM HCL 120MG CAPSULE CD 24HR PO SCH (08:39)
[2019-02-10] MEDS: SOTALOL HCL 80MG TABLET PO SCH ×2 (08:40→21:20)
[2019-02-10 09:44] LABS: PLATELET ESTIMATE NORMAL
[2019-02-10] MEDS ORDERED: GUAIFENESIN-DM 200MG-20MG/10ML UDC PO PRN (13:00)
[2019-02-10] MEDS: FLUCONAZOLE 100MG TABLET PO SCH (13:21)
[2019-02-10] MEDS: HYDROCODONE/ACETAMINOPHEN 10/325MG TABLET PO PRN (13:27)
[2019-02-10] MEDS: LEVOFLOXACIN 500MG TABLET PO SCH (17:03)
[2019-02-10] MEDS ORDERED: DEXTROSE 50% WATER 50ML SYRINGE IV PRN (20:15)
[2019-02-10] MEDS: INSULIN LISPRO 100 UNITS/ML SUBCUT SCH (21:00)
[2019-02-11] VITALS (12 sets, daily range): BP systolic 135–169; BP diastolic 63–91
[2019-02-11] MEDS ORDERED: VANCOMYCIN HCL 1 GM/VIAL PO SCH
[2019-02-11] MEDS: IPRATROPIUM/ALBUTEROL 0.5-3(2.5)MG/3ML NEB HHN SCH ×4 (00:09→20:07)
[2019-02-11] MEDS: VANCOMYCIN HCL 1000 MG/20 ML ORAL PO SCH ×4 (01:00→18:07)
[2019-02-11] MEDS: HYDROCODONE/ACETAMINOPHEN 10/325MG TABLET PO PRN ×3 (02:35→21:25)
[2019-02-11] MEDS: MAGNESIUM/ALUMINUM HYDROXIDE/SIMETHICONE 30ML UDC PO PRN (02:49)
[2019-02-11] MEDS: HYDRALAZINE HCL 25MG TABLET PO PRN (04:11)
[2019-02-11] MEDS: DEXT 5%/0.45% NACL 1000ML 1,000 ML IV SCH (06:14)
[2019-02-11] MEDS: BLOOD SUGAR DIAGNOSTIC STRIP TEST SCH ×4 (06:34→20:58)
[2019-02-11] MEDS: HYDRALAZINE HCL 100MG TABLET PO SCH ×3 (06:34→21:19)
[2019-02-11] MEDS: INSULIN LISPRO 100 UNITS/ML SUBCUT SCH ×4 (08:00→20:58)
[2019-02-11] MEDS: AMLODIPINE 2.5MG TABLET PO SCH (09:08)
[2019-02-11] MEDS: METHIMAZOLE 5MG TABLET NG SCH ×3 (09:08→18:07)
[2019-02-11] MEDS: DILTIAZEM HCL 120MG CAPSULE CD 24HR PO SCH (09:09)
[2019-02-11] MEDS: FUROSEMIDE 40MG/4ML VIAL IVP SCH (09:09)
[2019-02-11] MEDS: SOTALOL HCL 80MG TABLET PO SCH ×2 (09:11→21:16)
[2019-02-11] MEDS: PREDNISONE 5MG TABLET PO SCH (09:18)
[2019-02-11 09:23] LABS: PROTHROMBIN TIME 10.5 sec (9.6-11.0)
[2019-02-11] MEDS ORDERED: SODIUM BICARBONATE 4% (2.4MEQ) 5ML VIAL IV ONE (10:04)
[2019-02-11] MEDS: FLUCONAZOLE 100MG TABLET PO SCH (12:07)
[2019-02-11] MEDS: DIAZEPAM 5 MG TABLET PO SCH ×2 (12:56→21:17)
[2019-02-11] MEDS: LEVOFLOXACIN 500MG TABLET PO SCH (18:07)
[2019-02-11] MEDS: BUDESONIDE 0.5MG/2ML NEB HHN SCH (20:07)
[2019-02-12] VITALS (12 sets, daily range): BP systolic 113–162; BP diastolic 57–77
[2019-02-12] MEDS: IPRATROPIUM/ALBUTEROL 0.5-3(2.5)MG/3ML NEB HHN SCH ×6 (00:18→21:02)
[2019-02-12] MEDS: VANCOMYCIN HCL 1000 MG/20 ML ORAL PO SCH ×5 (00:22→23:05)
[2019-02-12] MEDS: MAGNESIUM/ALUMINUM HYDROXIDE/SIMETHICONE 30ML UDC PO PRN ×2 (00:30→22:52)
[2019-02-12] MEDS: HYDRALAZINE HCL 25MG TABLET PO PRN (03:14)
[2019-02-12] MEDS: DOCUSATE SODIUM 100MG CAPSULE PO PRN (03:25)
[2019-02-12] MEDS: HYDRALAZINE HCL 100MG TABLET PO SCH ×3 (06:13→22:52)
[2019-02-12] MEDS: BLOOD SUGAR DIAGNOSTIC STRIP TEST SCH ×4 (06:43→20:42)
[2019-02-12 07:01] LABS: HEMATOCRIT. 27.1 % (36.0-48.0); HEMOGLOBIN. 8.4 g/dL (12.0-16.0); MEAN CORPUSCULAR HEMOGLOBIN 26.9 pg (28.0-32.0); MEAN CORPUSCULAR VOLUME 86.9 fL (81.0-99.0); MEAN PLATELET VOLUME 7.3 fl (7.4-10.4); PLATELET 184 x1000/uL (130-400); RED BLOOD CELL COUNT 3.12 mill/uL (4.2-5.4); RED CELL DISTRIBUTION WIDTH 17.9 % (11.6-14.6)
[2019-02-12] MEDS: INSULIN LISPRO 100 UNITS/ML SUBCUT SCH ×4 (07:58→20:42)
[2019-02-12] MEDS: BUDESONIDE 0.5MG/2ML NEB HHN SCH ×2 (08:22→21:02)
[2019-02-12] MEDS: FUROSEMIDE 40MG/4ML VIAL IVP SCH (09:12)
[2019-02-12] MEDS: SOTALOL HCL 80MG TABLET PO SCH (09:13)
[2019-02-12] MEDS: AMLODIPINE 2.5MG TABLET PO SCH (09:13)
[2019-02-12] MEDS: DIAZEPAM 5 MG TABLET PO SCH ×2 (09:14→20:41)
[2019-02-12] MEDS: DILTIAZEM HCL 120MG CAPSULE CD 24HR PO SCH (09:14)
[2019-02-12] MEDS: METHIMAZOLE 5MG TABLET NG SCH ×3 (09:14→17:22)
[2019-02-12] MEDS: PREDNISONE 5MG TABLET PO SCH (09:14)
[2019-02-12 09:22] LABS: CHLORIDE 95 mEq/L (98-107)
[2019-02-12 12:17] LABS: PLATELET ESTIMATE NORMAL
[2019-02-12] MEDS: FLUCONAZOLE 100MG TABLET PO SCH (12:43)
[2019-02-12] MEDS: LEVOFLOXACIN 500MG TABLET PO SCH (17:22)
[2019-02-12] MEDS: HYDROCODONE/ACETAMINOPHEN 10/325MG TABLET PO PRN (17:33)
[2019-02-12] MEDS: SOTALOL HCL 120MG TABLET PO SCH (20:42)
[2019-02-13] VITALS (24 sets, daily range): BP systolic 111–165; BP diastolic 51–100
[2019-02-13] MEDS: IPRATROPIUM/ALBUTEROL 0.5-3(2.5)MG/3ML NEB HHN SCH ×6 (02:09→20:42)
[2019-02-13] MEDS: HYDRALAZINE HCL 100MG TABLET PO SCH ×3 (05:14→20:31)
[2019-02-13] MEDS: VANCOMYCIN HCL 1000 MG/20 ML ORAL PO SCH ×3 (05:15→17:33)
[2019-02-13] MEDS: HYDROCODONE/ACETAMINOPHEN 10/325MG TABLET PO PRN (05:52)
[2019-02-13 06:24] LABS: HEMATOCRIT. 25.6 % (36.0-48.0); HEMOGLOBIN. 7.9 g/dL (12.0-16.0); MEAN CORPUSCULAR HEMOGLOBIN 27.3 pg (28.0-32.0); MEAN CORPUSCULAR VOLUME 88.1 fL (81.0-99.0); MEAN PLATELET VOLUME 7.2 fl (7.4-10.4); PLATELET 169 x1000/uL (130-400); RED BLOOD CELL COUNT 2.91 mill/uL (4.2-5.4); RED CELL DISTRIBUTION WIDTH 18.2 % (11.6-14.6)
[2019-02-13 06:32] LABS: CHLORIDE 95 mEq/L (98-107)
[2019-02-13] MEDS: BLOOD SUGAR DIAGNOSTIC STRIP TEST SCH ×4 (06:42→21:00)
[2019-02-13] MEDS: INSULIN LISPRO 100 UNITS/ML SUBCUT SCH ×4 (08:00→21:00)
[2019-02-13] MEDS: BUDESONIDE 0.5MG/2ML NEB HHN SCH ×2 (08:14→20:42)
[2019-02-13] MEDS: FUROSEMIDE 40MG/4ML VIAL IVP SCH (08:39)
[2019-02-13] MEDS: AMLODIPINE 2.5MG TABLET PO SCH (08:40)
[2019-02-13] MEDS: SOTALOL HCL 120MG TABLET PO SCH ×2 (08:41→20:31)
[2019-02-13] MEDS: DILTIAZEM HCL 120MG CAPSULE CD 24HR PO SCH (08:41)
[2019-02-13] MEDS: DIAZEPAM 5 MG TABLET PO SCH ×2 (08:41→20:30)
[2019-02-13] MEDS: PREDNISONE 5MG TABLET PO SCH (08:41)
[2019-02-13] MEDS: METHIMAZOLE 5MG TABLET NG SCH ×3 (08:50→17:32)
[2019-02-13 10:10] LABS: PLATELET ESTIMATE NORMAL
[2019-02-13] MEDS: FLUCONAZOLE 100MG TABLET PO SCH (13:38)
[2019-02-13] MEDS: LEVOFLOXACIN 500MG TABLET PO SCH (17:32)
[2019-02-14] VITALS (16 sets, daily range): BP systolic 118–154; BP diastolic 55–75
[2019-02-14] MEDS: IPRATROPIUM/ALBUTEROL 0.5-3(2.5)MG/3ML NEB HHN SCH ×6 (00:40→20:34)
[2019-02-14] MEDS: HYDRALAZINE HCL 25MG TABLET PO PRN (05:47)
[2019-02-14] MEDS: VANCOMYCIN HCL 1000 MG/20 ML ORAL PO SCH ×4 (05:47→18:12)
[2019-02-14] MEDS: HYDROCODONE/ACETAMINOPHEN 10/325MG TABLET PO PRN ×2 (06:02→13:56)
[2019-02-14] MEDS: HYDRALAZINE HCL 100MG TABLET PO SCH ×3 (06:32→21:18)
[2019-02-14 07:05] LABS: CHLORIDE 94 mEq/L (98-107)
[2019-02-14 07:06] LABS: HEMOGLOBIN. 8.1 g/dL (12.0-16.0); MEAN CORPUSCULAR HEMOGLOBIN 27.3 pg (28.0-32.0); MEAN CORPUSCULAR VOLUME 88.2 fL (81.0-99.0); PLATELET 182 x1000/uL (130-400); RED BLOOD CELL COUNT 2.95 mill/uL (4.2-5.4); RED CELL DISTRIBUTION WIDTH 18.4 % (11.6-14.6)
[2019-02-14] MEDS: BLOOD SUGAR DIAGNOSTIC STRIP TEST SCH ×4 (07:30→20:31)
[2019-02-14] MEDS: INSULIN LISPRO 100 UNITS/ML SUBCUT SCH ×4 (08:00→20:31)
[2019-02-14] MEDS: DILTIAZEM HCL 120MG CAPSULE CD 24HR PO SCH (09:07)
[2019-02-14] MEDS: FUROSEMIDE 40MG/4ML VIAL IVP SCH ×2 (09:08→20:14)
[2019-02-14] MEDS: DIAZEPAM 5 MG TABLET PO SCH ×2 (09:08→20:14)
[2019-02-14] MEDS: METHIMAZOLE 5MG TABLET NG SCH ×3 (09:08→18:11)
[2019-02-14] MEDS: AMLODIPINE 2.5MG TABLET PO SCH (09:08)
[2019-02-14] MEDS: SOTALOL HCL 120MG TABLET PO SCH ×2 (09:12→20:15)
[2019-02-14] MEDS: PREDNISONE 5MG TABLET PO SCH (09:12)
[2019-02-14] MEDS: BUDESONIDE 0.5MG/2ML NEB HHN SCH (09:29)
[2019-02-14] MEDS: FLUCONAZOLE 100MG TABLET PO SCH (13:39)
[2019-02-14 16:27] LABS: BG CARBOXYHEMOGLOBIN 0.7 % (0.5-1.5); BG DEOXYHEMOGLOBIN 14.1 % (0.0-5.0); BG FRACTION INSPIRED OXYGEN 28; BG HCO3 ACT 50.3 mmol/L (22.0-26.0); BG METHEMOGLOBIN 0.2 % (0.0-1.5); BG OXYGEN SATURATION 85.8 % (92.0-98.5); BG PCO2 90.7 mmHg (35.0-45.0); BG PH 7.362 (7.350-7.450); BG PO2 51.3 mmHg (75.0-100.0); BG SAMPLE SITE RIGHT RADIAL; BG TOTAL HEMOGLOBIN 10.5 g/dL (12.0-18.0); BG VENT MODE NASAL CANNULA
[2019-02-14] MEDS: DOCUSATE SODIUM 100MG CAPSULE PO PRN (18:11)
[2019-02-14 19:42] LABS: PLATELET ESTIMATE NORMAL
[2019-02-15] VITALS (8 sets, daily range): BP systolic 132–165; BP diastolic 58–74
[2019-02-15] MEDS: IPRATROPIUM/ALBUTEROL 0.5-3(2.5)MG/3ML NEB HHN SCH ×6 (00:20→21:03)
[2019-02-15] MEDS: VANCOMYCIN HCL 1000 MG/20 ML ORAL PO SCH ×4 (00:54→18:52)
[2019-02-15] MEDS: HYDROCODONE/ACETAMINOPHEN 10/325MG TABLET PO PRN ×2 (03:50→12:53)
[2019-02-15] MEDS: FUROSEMIDE 40MG/4ML VIAL IVP SCH ×2 (06:19→18:52)
[2019-02-15] MEDS: HYDRALAZINE HCL 100MG TABLET PO SCH ×3 (06:21→22:01)
[2019-02-15] MEDS: BLOOD SUGAR DIAGNOSTIC STRIP TEST SCH ×4 (07:30→21:00)
[2019-02-15] MEDS: INSULIN LISPRO 100 UNITS/ML SUBCUT SCH ×4 (08:00→21:00)
[2019-02-15] MEDS: PREDNISONE 5MG TABLET PO SCH (09:09)
[2019-02-15] MEDS: METHIMAZOLE 5MG TABLET NG SCH ×3 (09:09→18:52)
[2019-02-15] MEDS: DIAZEPAM 5 MG TABLET PO SCH ×2 (09:09→22:04)
[2019-02-15] MEDS: AMLODIPINE 2.5MG TABLET PO SCH (09:09)
[2019-02-15] MEDS: DILTIAZEM HCL 120MG CAPSULE CD 24HR PO SCH (09:10)
[2019-02-15] MEDS ORDERED: MAGNESIUM HYDROXIDE 400MG/5ML 30ML UDC PO PRN (10:00)
[2019-02-15] MEDS ORDERED: BISACODYL 10MG SUPP PR PRN (10:15)
[2019-02-15] MEDS: MAGNESIUM/ALUMINUM HYDROXIDE/SIMETHICONE 30ML UDC PO PRN (10:59)
[2019-02-15] MEDS: FLUCONAZOLE 100MG TABLET PO SCH (12:53)
[2019-02-15] MEDS: SOTALOL HCL 120MG TABLET PO SCH ×2 (13:58→22:01)
[2019-02-15 16:28] LABS: MEAN CORPUSCULAR HEMOGLOBIN 27.1 pg (28.0-32.0); MEAN PLATELET VOLUME 7.1 fl (7.4-10.4); PLATELET 242 x1000/uL (130-400); RED BLOOD CELL COUNT 3.34 mill/uL (4.2-5.4); RED CELL DISTRIBUTION WIDTH 18.8 % (11.6-14.6)
[2019-02-15 17:57] LABS: PLATELET ESTIMATE NORMAL
[2019-02-15] MEDS ORDERED: DOXA2TAB2 MT (19:53)
[2019-02-15] MEDS ORDERED: OMEP20CA5 MT (19:58)
[2019-02-15] MEDS ORDERED: IPRA3AMP9 HHN (19:59)
== END 2019-02-15 22:58 | DRG 133 ==
LOC: ER 09:16 → 3WST 10:31 → EDBEDREQ 10:33 → ENRESERV 11:01 → 3WST 14:05 → MICUNO 01-24 00:56 → 3WST 01-27 23:18 → 6WST 02-01 11:35 → 5EST 02-06 10:03
PROVIDERS: ADMIT Internal Medicine; ATTEND Internal Medicine
PROC: 5A1945Z Respiratory Ventilation, 24-96 Consecutive Hours (ICD-10-PCS; principal; 2019-01-24)
PROC: 0BH17EZ Insertion of Endotracheal Airway into Trachea, Via Natural or Artificial Opening (ICD-10-PCS; 2019-01-24)
PROC: 02HV33Z Insertion of Infusion Device into Superior Vena Cava, Percutaneous Approach (ICD-10-PCS; 2019-01-28)
PROC: B5181ZA Fluoroscopy of Superior Vena Cava using Low Osmolar Contrast, Guidance (ICD-10-PCS; 2019-01-28)
PROC: B548ZZA Ultrasonography of Superior Vena Cava, Guidance (ICD-10-PCS; 2019-01-28)
PROC: 5A09357 Assistance with Respiratory Ventilation, Less than 24 Consecutive Hours, Continuous Positive Airway Pressure (ICD-10-PCS; 2019-02-06)
PROC: 30233N1 Transfusion of Nonautologous Red Blood Cells into Peripheral Vein, Percutaneous Approach (ICD-10-PCS; 2019-02-07)
PROC: 5A09357 Assistance with Respiratory Ventilation, Less than 24 Consecutive Hours, Continuous Positive Airway Pressure (ICD-10-PCS; 2019-02-07)
PROC: 0DB68ZX Excision of Stomach, Via Natural or Artificial Opening Endoscopic, Diagnostic (ICD-10-PCS; 2019-02-08)
PROC: 5A09357 Assistance with Respiratory Ventilation, Less than 24 Consecutive Hours, Continuous Positive Airway Pressure (ICD-10-PCS; 2019-02-08)
PROC: 0DB58ZX Excision of Esophagus, Via Natural or Artificial Opening Endoscopic, Diagnostic (ICD-10-PCS; 2019-02-08)
PROC: 5A09357 Assistance with Respiratory Ventilation, Less than 24 Consecutive Hours, Continuous Positive Airway Pressure (ICD-10-PCS; 2019-02-09)
PROC: 5A09357 Assistance with Respiratory Ventilation, Less than 24 Consecutive Hours, Continuous Positive Airway Pressure (ICD-10-PCS; 2019-02-10)
PROC: 0W9B3ZZ Drainage of Left Pleural Cavity, Percutaneous Approach (ICD-10-PCS; 2019-02-11)
PROC: 5A09357 Assistance with Respiratory Ventilation, Less than 24 Consecutive Hours, Continuous Positive Airway Pressure (ICD-10-PCS; 2019-02-11)
PROC: 5A09357 Assistance with Respiratory Ventilation, Less than 24 Consecutive Hours, Continuous Positive Airway Pressure (ICD-10-PCS; 2019-02-12)
PROC: 5A09357 Assistance with Respiratory Ventilation, Less than 24 Consecutive Hours, Continuous Positive Airway Pressure (ICD-10-PCS; 2019-02-13)
PROC: 5A09357 Assistance with Respiratory Ventilation, Less than 24 Consecutive Hours, Continuous Positive Airway Pressure (ICD-10-PCS; 2019-02-14)
DX: J96.20 Acute and chronic respiratory failure, unspecified whether with hypoxia or hypercapnia (principal); N17.0 Acute kidney failure with tubular necrosis; E87.4 Mixed disorder of acid-base balance; E46 Unspecified protein-calorie malnutrition; A04.72 Enterocolitis due to Clostridium difficile, not specified as recurrent; B37.0 Candidal stomatitis; I50.43 Acute on chronic combined systolic (congestive) and diastolic (congestive) heart failure; J18.1 Lobar pneumonia, unspecified organism; E87.8 Other disorders of electrolyte and fluid balance, not elsewhere classified; J44.0 Chronic obstructive pulmonary disease with (acute) lower respiratory infection; I27.20 Pulmonary hypertension, unspecified; J44.1 Chronic obstructive pulmonary disease with (acute) exacerbation; E86.0 Dehydration; D64.9 Anemia, unspecified; F41.9 Anxiety disorder, unspecified; E05.90 Thyrotoxicosis, unspecified without thyrotoxic crisis or storm; I25.10 Atherosclerotic heart disease of native coronary artery without angina pectoris; I07.1 Rheumatic tricuspid insufficiency; B37.81 Candidal esophagitis; D12.2 Benign neoplasm of ascending colon; E03.9 Hypothyroidism, unspecified; E87.5 Hyperkalemia; F17.210 Nicotine dependence, cigarettes, uncomplicated; I47.1 Supraventricular tachycardia; I48.0 Paroxysmal atrial fibrillation; I48.92 Unspecified atrial flutter; K21.9 Gastro-esophageal reflux disease without esophagitis; Z96.649 Presence of unspecified artificial hip joint; I13.0 Hypertensive heart and chronic kidney disease with heart failure and stage 1 through stage 4 chronic kidney disease, or unspecified chronic kidney disease; N18.9 Chronic kidney disease, unspecified; R65.10 Systemic inflammatory response syndrome (SIRS) of non-infectious origin without acute organ dysfunction; T38.0X5A Adverse effect of glucocorticoids and synthetic analogues, initial encounter; K44.9 Diaphragmatic hernia without obstruction or gangrene; K57.90 Diverticulosis of intestine, part unspecified, without perforation or abscess without bleeding; Z99.81 Dependence on supplemental oxygen; Z79.899 Other long term (current) drug therapy; Z90.710 Acquired absence of both cervix and uterus; Z88.0 Allergy status to penicillin; Y92.89 Other specified places as the place of occurrence of the external cause; Z68.26 Body mass index [BMI] 26.0-26.9, adult; K29.70 Gastritis, unspecified, without bleeding
CPT/HCPCS: 32555; 36415; 36569; 36573; 36600; 71045; 71046; 76604; 76770; 78582; 80048; 80061; 80162; 80305; 82040; 82270; 82375; 82550; 82805; 82962; 83540; 83550; 83615; 83735; 83880; 84100; 84132; 84439; 84443; 84484; 85014; 85018; 85384; 85651; 86038; 86160; 86850; 86900; 86920; 87015; 87045; 87427; 87449; 87493; 88108; 88305; 88312; 88313; 92610; 93005; 93306; 93970; 94003; 94640; 94660; 96374; 97110; 97162; 97165; 97530; 99285; A6261; A9558; C1725; J0330; J1100; J1200; J1815; J1940; J1956; J2250; J2270; J2405; J2704; J2920; J3370; J3490; J7040; J7050; J7512; J7611; J7620; J7626; P9016; A4315

== ENCOUNTER 2019-05-27 08:10 | Inpatient (IN) | payer MEDICARE, MEDICAID ==
[~2019-05-27] VITALS: Ht 162.6 cm; Wt 83.0 kg
[~2019-05-27 08:10] MED LIST changes: -ALBU18HF2 IH; -ATROV IH; -BENA20TA10 PO; -COR12 MT; -DIGO-26 PO; -DILT240C92 PO; -DOCU-150 PO; -DOXA8TAB2 PO; -FURO-151 PO; -HYDR100T26 PO; +IPRA3AMP9 HHN; -LISI-604 PO; -OCD PO; +OMEP20CA5 MT; -PANT40TA4 PO; -TAP5 MT
[2019-05-27] MEDS ORDERED: METHYLPREDNISOLONE SOD SUCC 125 MG/2 ML VIAL IV STA (08:29)
[2019-05-27] MEDS ORDERED: ALBUTEROL (0.083%) 2.5MG/3ML NEB HHN STA (08:29)
[2019-05-27] MEDS ORDERED: IPRATROPIUM BROMIDE (0.02%) 0.5MG/2.5ML NEB HHN STA (08:29)
[2019-05-27 09:09] LABS: CHLORIDE 96 mEq/L (98-107)
[2019-05-27 09:13] LABS: HEMATOCRIT. 24.5 % (36.0-48.0); HEMOGLOBIN. 8.1 g/dL (12.0-16.0); MEAN CORPUSCULAR HEMOGLOBIN 29.1 pg (28.0-32.0); MEAN CORPUSCULAR VOLUME 87.8 fL (81.0-99.0); MEAN PLATELET VOLUME 8.1 fl (7.4-10.4); PLATELET 283 x1000/uL (130-400); RED CELL DISTRIBUTION WIDTH 14.8 % (11.6-14.6)
[2019-05-27] MEDS ORDERED: ACETAMINOPHEN 325MG TABLET PO STA (09:20)
[2019-05-27] MEDS ORDERED: LEVOFLOXACIN 750MG PREMIX 150 ML IV ONE (10:30)
[2019-05-27 10:48] LABS: PLATELET ESTIMATE NORMAL
[2019-05-27] MEDS ORDERED: LEVOFLOXACIN 500MG PREMIX 100 ML IV SCH (11:15)
[2019-05-27] MEDS ORDERED: GUAIFENESIN 200MG/10ML SUGAR FREE UDC PO PRN (11:15)
[2019-05-27] MEDS ORDERED: NA PHOS,M-B/NA PHOS,DI-BA ENEMA 118ML PR PRN (11:15)
[2019-05-27] MEDS ORDERED: LORAZEPAM 2MG/ML CPJ IV PRN (11:15)
[2019-05-27] MEDS ORDERED: MORPHINE SULFATE 2 MG/ML CPJ (NOT FOR IM USE) IV PRN (11:15)
[2019-05-27] MEDS ORDERED: DIPHENHYDRAMINE 50MG/ML VIAL IV PRN (11:15)
[2019-05-27] MEDS ORDERED: ONDANSETRON HCL 4MG/2ML INJ IV PRN (11:15)
[2019-05-27] MEDS ORDERED: METHYLPREDNISOLONE SOD SUCC 125 MG/2 ML VIAL IV SCH (11:15)
[2019-05-27] MEDS ORDERED: MAGNESIUM/ALUMINUM HYDROXIDE/SIMETHICONE 30ML UDC PO PRN (11:15)
[2019-05-27 11:30] LABS: BG BASE EXCESS 5.1 mmol/L (-2.0-2.0); BG CARBOXYHEMOGLOBIN 0.2 % (0.5-1.5); BG DEOXYHEMOGLOBIN 10.3 % (0.0-5.0); BG FRACTION INSPIRED OXYGEN 28; BG HCO3 ACT 29.6 mmol/L (22.0-26.0); BG METHEMOGLOBIN 0.1 % (0.0-1.5); BG OXYGEN SATURATION 89.7 % (92.0-98.5); BG OXYHEMOGLOBIN 89.4 % (94.0-97.0); BG PCO2 43.1 mmHg (35.0-45.0); BG PH 7.454 (7.350-7.450); BG PO2 58.4 mmHg (75.0-100.0); BG SAMPLE SITE RIGHT RADIAL; BG TOTAL HEMOGLOBIN 8.9 g/dL (12.0-18.0); BG VENT MODE NASAL CANNULA
[2019-05-27 12:56] LABS: CLARITY URINE CLOUDY (CLEAR); COLOR URINE YELLOW (YELLOW); KETONES URINE NEGATIVE (NEGATIVE); LEUKOCYTE ESTERASE URINE 2+ (NEGATIVE); NITRITE URINE NEGATIVE (NEGATIVE); OCCULT BLOOD URINE TRACE (NEGATIVE); PROTEIN URINE TRACE (NEGATIVE); SPECIFIC GRAVITY URINE 1.009 (1.005-1.030); UROBILINOGEN URINE 0.2 E.U./dL (0.2-1.0)
[2019-05-27] MEDS: HYDROCODONE/ACETAMINOPHEN 10/325MG TABLET PO PRN ×2 (14:14→20:32)
[2019-05-27 18:26] VITALS: BP 133/68
[2019-05-27 18:38] VITALS: BP 133/68
[2019-05-27 20:00] VITALS: BP 141/65
[2019-05-27 20:00] LABS: CHLORIDE 97 mEq/L (98-107)
[2019-05-27] MEDS: FUROSEMIDE 40MG/4ML VIAL IV SCH (20:03)
[2019-05-27] MEDS: IPRATROPIUM/ALBUTEROL 0.5-3(2.5)MG/3ML NEB HHN SCH (21:17)
[2019-05-27 22:00] VITALS: BP 143/71
[2019-05-27] MEDS ORDERED: DEXTROSE 50% WATER 50ML SYRINGE IV PRN ×2 (22:15)
[2019-05-28] VITALS (18 sets, daily range): BP systolic 96–151; BP diastolic 53–86
[2019-05-28] MEDS: HYDROCODONE/ACETAMINOPHEN 10/325MG TABLET PO PRN ×3 (00:59→18:32)
[2019-05-28] MEDS: IPRATROPIUM/ALBUTEROL 0.5-3(2.5)MG/3ML NEB HHN SCH ×5 (01:07→21:07)
[2019-05-28] MEDS: BLOOD SUGAR DIAGNOSTIC STRIP TEST SCH ×4 (06:09→20:08)
[2019-05-28 06:47] LABS: HEMATOCRIT. 24.9 % (36.0-48.0); HEMOGLOBIN. 8.3 g/dL (12.0-16.0); MEAN CORPUSCULAR HEMOGLOBIN 29.1 pg (28.0-32.0); MEAN CORPUSCULAR VOLUME 87.5 fL (81.0-99.0); MEAN PLATELET VOLUME 7.9 fl (7.4-10.4); PLATELET 281 x1000/uL (130-400); RED BLOOD CELL COUNT 2.85 mill/uL (4.2-5.4); RED CELL DISTRIBUTION WIDTH 14.7 % (11.6-14.6)
[2019-05-28 07:07] LABS: CHLORIDE 98 mEq/L (98-107)
[2019-05-28] MEDS: INSULIN LISPRO 100 UNITS/ML SUBCUT SCH ×4 (07:20→21:00)
[2019-05-28 07:22] LABS: T4 FREE 1.13 ng/dL (0.76-1.46)
[2019-05-28 07:23] LABS: HDL CHOLESTEROL 30 mg/dL (40-59)
[2019-05-28 07:24] LABS: LDL CHOLESTEROL 74 mg/dL (5-100)
[2019-05-28] MEDS: ASPIRIN 81MG EC TABLET PO SCH (08:24)
[2019-05-28] MEDS: FUROSEMIDE 40MG/4ML VIAL IV SCH ×2 (09:10→17:17)
[2019-05-28] MEDS: PREDNISONE 20MG TABLET PO SCH ×2 (10:42→17:16)
[2019-05-28] MEDS: DIAZEPAM 5 MG TABLET PO PRN ×2 (12:18→23:04)
[2019-05-28] MEDS: LEVOFLOXACIN 250MG PREMIX 50 ML IV SCH (12:18)
[2019-05-29] VITALS (12 sets, daily range): BP systolic 124–159; BP diastolic 57–73
[2019-05-29] MEDS: IPRATROPIUM/ALBUTEROL 0.5-3(2.5)MG/3ML NEB HHN SCH ×4 (03:37→20:45)
[2019-05-29] MEDS: HYDROCODONE/ACETAMINOPHEN 10/325MG TABLET PO PRN ×3 (04:49→23:00)
[2019-05-29] MEDS: BLOOD SUGAR DIAGNOSTIC STRIP TEST SCH ×4 (06:18→20:18)
[2019-05-29] MEDS: INSULIN LISPRO 100 UNITS/ML SUBCUT SCH ×4 (07:20→20:18)
[2019-05-29 07:23] LABS: HEMATOCRIT. 24.3 % (36.0-48.0); MEAN CORPUSCULAR VOLUME 88.4 fL (81.0-99.0); MEAN PLATELET VOLUME 7.6 fl (7.4-10.4); PLATELET 355 x1000/uL (130-400); RED BLOOD CELL COUNT 2.75 mill/uL (4.2-5.4); RED CELL DISTRIBUTION WIDTH 15.1 % (11.6-14.6)
[2019-05-29 07:29] LABS: CHLORIDE 98 mEq/L (98-107)
[2019-05-29] MEDS: ASPIRIN 81MG EC TABLET PO SCH (09:11)
[2019-05-29] MEDS: PREDNISONE 20MG TABLET PO SCH ×3 (09:11→17:19)
[2019-05-29] MEDS: FUROSEMIDE 40MG/4ML VIAL IV SCH ×2 (09:11→17:19)
[2019-05-29 10:54] LABS: PLATELET ESTIMATE NORMAL
[2019-05-29] MEDS ORDERED: SORBITOL 70% SOLN 30ML PO SCH (12:30)
[2019-05-29] MEDS: LEVOFLOXACIN 250MG PREMIX 50 ML IV SCH (13:15)
[2019-05-30] VITALS (20 sets, daily range): BP systolic 112–168; BP diastolic 56–88
[2019-05-30] MEDS: DIAZEPAM 5 MG TABLET PO PRN (01:08)
[2019-05-30] MEDS: IPRATROPIUM/ALBUTEROL 0.5-3(2.5)MG/3ML NEB HHN SCH ×3 (02:53→20:13)
[2019-05-30] MEDS: BLOOD SUGAR DIAGNOSTIC STRIP TEST SCH ×4 (06:19→21:37)
[2019-05-30 07:13] LABS: MEAN CORPUSCULAR HEMOGLOBIN 29.3 pg (28.0-32.0); MEAN PLATELET VOLUME 7.6 fl (7.4-10.4); PLATELET 417 x1000/uL (130-400); RED BLOOD CELL COUNT 2.73 mill/uL (4.2-5.4); RED CELL DISTRIBUTION WIDTH 15.1 % (11.6-14.6)
[2019-05-30 07:18] LABS: PLATELET ESTIMATE NORMAL
[2019-05-30] MEDS: INSULIN LISPRO 100 UNITS/ML SUBCUT SCH ×4 (07:20→21:00)
[2019-05-30 07:22] LABS: CHLORIDE 96 mEq/L (98-107)
[2019-05-30] MEDS: FUROSEMIDE 40MG/4ML VIAL IV SCH ×2 (08:26→16:02)
[2019-05-30] MEDS: ASPIRIN 81MG EC TABLET PO SCH (08:26)
[2019-05-30] MEDS: PREDNISONE 20MG TABLET PO SCH ×2 (08:26→11:38)
[2019-05-30] MEDS: IPRATROPIUM/ALBUTEROL 0.5-3(2.5)MG/3ML NEB NEB PRN (08:43)
[2019-05-30 10:42] LABS: PLATELET ESTIMATE INCREASED
[2019-05-30] MEDS: LEVOFLOXACIN 250MG PREMIX 50 ML IV SCH (12:00)
[2019-05-30] MEDS ORDERED: LIDOCAINE HCL 1% 20ML VIAL (Pyxis) INJ ONE (12:38)
[2019-05-30] MEDS: NITROFURANTOIN 100MG M/M CAPSULE PO SCH ×2 (15:53→16:06)
[2019-05-30] MEDS: HYDROCODONE/ACETAMINOPHEN 10/325MG TABLET PO PRN (16:03)
[2019-05-30] MEDS: FLUTICASONE PROPIONATE 50MCG/SPRAY BOTTLE BOTHNSTRLS SCH (21:00)
[2019-05-30] MEDS: AMLODIPINE 5MG TABLET PO SCH (21:00)
[2019-05-30] MEDS: FAMOTIDINE 20MG TABLET PO SCH (21:47)
[2019-05-31] VITALS (12 sets, daily range): BP systolic 105–174; BP diastolic 53–91
[2019-05-31] MEDS: IPRATROPIUM/ALBUTEROL 0.5-3(2.5)MG/3ML NEB HHN SCH ×2 (02:02→08:11)
[2019-05-31] MEDS: NITROFURANTOIN 100MG M/M CAPSULE PO SCH ×2 (03:28→17:30)
[2019-05-31] MEDS: DIAZEPAM 5 MG TABLET PO PRN ×3 (04:10→22:03)
[2019-05-31] MEDS ORDERED: HYDRALAZINE 20MG/ML VIAL IV PRN (06:20)
[2019-05-31] MEDS: IPRATROPIUM/ALBUTEROL 0.5-3(2.5)MG/3ML NEB NEB PRN (06:24)
[2019-05-31] MEDS: BLOOD SUGAR DIAGNOSTIC STRIP TEST SCH ×4 (06:41→21:00)
[2019-05-31 07:15] LABS: HEMATOCRIT. 25.2 % (36.0-48.0); HEMOGLOBIN. 8.2 g/dL (12.0-16.0); MEAN CORPUSCULAR HEMOGLOBIN 28.8 pg (28.0-32.0); MEAN CORPUSCULAR VOLUME 88.9 fL (81.0-99.0); MEAN PLATELET VOLUME 7.1 fl (7.4-10.4); PLATELET 453 x1000/uL (130-400); RED BLOOD CELL COUNT 2.83 mill/uL (4.2-5.4); RED CELL DISTRIBUTION WIDTH 15.3 % (11.6-14.6)
[2019-05-31] MEDS: INSULIN LISPRO 100 UNITS/ML SUBCUT SCH ×4 (07:20→21:00)
[2019-05-31 07:28] LABS: CHLORIDE 99 mEq/L (98-107)
[2019-05-31] MEDS: AMLODIPINE 5MG TABLET PO SCH ×2 (08:22→22:03)
[2019-05-31] MEDS: PREDNISONE 20MG TABLET PO SCH (08:23)
[2019-05-31] MEDS: FAMOTIDINE 20MG TABLET PO SCH ×2 (08:23→22:03)
[2019-05-31] MEDS: FUROSEMIDE 40MG/4ML VIAL IV SCH (08:25)
[2019-05-31] MEDS: HYDROCODONE/ACETAMINOPHEN 10/325MG TABLET PO PRN ×2 (08:25→13:45)
[2019-05-31] MEDS: LISINOPRIL 20MG TABLET PO SCH ×2 (08:26→22:03)
[2019-05-31] MEDS: ASPIRIN 81MG EC TABLET PO SCH (08:26)
[2019-05-31] MEDS: FLUTICASONE PROPIONATE 50MCG/SPRAY BOTTLE BOTHNSTRLS SCH ×2 (08:36→21:00)
[2019-05-31] MEDS ORDERED: SORBITOL 70% SOLN 30ML PO NR (11:00)
[2019-05-31] MEDS ORDERED: BISACODYL 10MG SUPP PR NR (11:00)
[2019-05-31] MEDS: IPRATROPIUM BROMIDE (0.02%) 0.5MG/2.5ML NEB HHN SCH ×3 (12:08→20:30)
[2019-05-31] MEDS ORDERED: INFLUENZA VIRUS VACCINE(AFLURIA) 0.5ML SYR IM ONE (13:00)
[2019-05-31] MEDS: METHIMAZOLE 5MG TABLET PO SCH ×2 (13:44→17:30)
[2019-05-31 21:34] LABS: PLATELET ESTIMATE INCREASED
[2019-06-01] VITALS (9 sets, daily range): BP systolic 117–157; BP diastolic 57–79
[2019-06-01] MEDS: IPRATROPIUM BROMIDE (0.02%) 0.5MG/2.5ML NEB HHN SCH ×6 (00:40→21:00)
[2019-06-01] MEDS: NITROFURANTOIN 100MG M/M CAPSULE PO SCH ×2 (03:00→14:48)
[2019-06-01] MEDS: ACETAMINOPHEN 325MG TABLET PO PRN ×2 (05:43→17:24)
[2019-06-01 06:19] LABS: HEMATOCRIT. 25.8 % (36.0-48.0); HEMOGLOBIN. 8.3 g/dL (12.0-16.0); MEAN CORPUSCULAR HEMOGLOBIN 28.6 pg (28.0-32.0); MEAN PLATELET VOLUME 7.1 fl (7.4-10.4); PLATELET 493 x1000/uL (130-400); RED CELL DISTRIBUTION WIDTH 15.6 % (11.6-14.6)
[2019-06-01 06:36] LABS: CHLORIDE 98 mEq/L (98-107)
[2019-06-01] MEDS: BLOOD SUGAR DIAGNOSTIC STRIP TEST SCH ×4 (06:48→20:25)
[2019-06-01] MEDS: INSULIN LISPRO 100 UNITS/ML SUBCUT SCH ×4 (06:48→20:25)
[2019-06-01] MEDS: METHIMAZOLE 5MG TABLET PO SCH ×3 (09:00→17:23)
[2019-06-01] MEDS: ASPIRIN 81MG EC TABLET PO SCH (09:00)
[2019-06-01] MEDS: FUROSEMIDE 40MG/4ML VIAL IV SCH (09:01)
[2019-06-01] MEDS: AMLODIPINE 5MG TABLET PO SCH ×2 (09:01→20:52)
[2019-06-01] MEDS: PREDNISONE 20MG TABLET PO SCH (09:01)
[2019-06-01] MEDS: FAMOTIDINE 20MG TABLET PO SCH ×2 (09:01→20:52)
[2019-06-01] MEDS: FLUTICASONE PROPIONATE 50MCG/SPRAY BOTTLE BOTHNSTRLS SCH ×2 (09:02→20:53)
[2019-06-01] MEDS: DIAZEPAM 5 MG TABLET PO PRN (09:10)
[2019-06-01] MEDS: HYDROCODONE/ACETAMINOPHEN 10/325MG TABLET PO PRN ×2 (09:11→20:52)
[2019-06-01] MEDS: LISINOPRIL 20MG TABLET PO SCH ×2 (09:14→20:52)
[2019-06-01 16:10] LABS: PLATELET ESTIMATE INCREASED
[2019-06-02] VITALS (12 sets, daily range): BP systolic 116–153; BP diastolic 54–68
[2019-06-02] MEDS: IPRATROPIUM BROMIDE (0.02%) 0.5MG/2.5ML NEB HHN SCH ×5 (01:20→20:00)
[2019-06-02] MEDS: NITROFURANTOIN 100MG M/M CAPSULE PO SCH ×2 (03:41→16:22)
[2019-06-02] MEDS: DIAZEPAM 5 MG TABLET PO PRN ×2 (04:37→13:35)
[2019-06-02] MEDS: HYDROCODONE/ACETAMINOPHEN 10/325MG TABLET PO PRN ×3 (04:38→21:30)
[2019-06-02 06:13] LABS: HEMATOCRIT. 26.2 % (36.0-48.0); HEMOGLOBIN. 8.3 g/dL (12.0-16.0); MEAN CORPUSCULAR HEMOGLOBIN 28.4 pg (28.0-32.0); MEAN CORPUSCULAR VOLUME 89.2 fL (81.0-99.0); MEAN PLATELET VOLUME 6.9 fl (7.4-10.4); PLATELET 511 x1000/uL (130-400); RED BLOOD CELL COUNT 2.94 mill/uL (4.2-5.4)
[2019-06-02 06:14] LABS: CHLORIDE 101 mEq/L (98-107)
[2019-06-02] MEDS: INSULIN LISPRO 100 UNITS/ML SUBCUT SCH ×4 (06:31→21:00)
[2019-06-02] MEDS: BLOOD SUGAR DIAGNOSTIC STRIP TEST SCH ×4 (06:31→21:00)
[2019-06-02] MEDS: FAMOTIDINE 20MG TABLET PO SCH ×2 (08:54→21:02)
[2019-06-02] MEDS: PREDNISONE 20MG TABLET PO SCH (08:54)
[2019-06-02] MEDS: METHIMAZOLE 5MG TABLET PO SCH ×3 (08:54→16:22)
[2019-06-02] MEDS: DOCUSATE SODIUM 100MG CAPSULE PO PRN (08:55)
[2019-06-02] MEDS: FUROSEMIDE 40MG/4ML VIAL IV SCH (08:55)
[2019-06-02] MEDS: FLUTICASONE PROPIONATE 50MCG/SPRAY BOTTLE BOTHNSTRLS SCH ×2 (08:55→21:03)
[2019-06-02] MEDS: AMLODIPINE 5MG TABLET PO SCH ×2 (08:55→21:02)
[2019-06-02] MEDS: ASPIRIN 81MG EC TABLET PO SCH (08:55)
[2019-06-02] MEDS: LISINOPRIL 20MG TABLET PO SCH ×2 (08:55→21:02)
[2019-06-02 11:45] LABS: PLATELET ESTIMATE INCREASED
[2019-06-03] VITALS (12 sets, daily range): BP systolic 113–165; BP diastolic 51–76
[2019-06-03] MEDS: IPRATROPIUM BROMIDE (0.02%) 0.5MG/2.5ML NEB HHN SCH ×5 (02:11→15:34)
[2019-06-03] MEDS: NITROFURANTOIN 100MG M/M CAPSULE PO SCH ×2 (04:53→15:00)
[2019-06-03] MEDS: BLOOD SUGAR DIAGNOSTIC STRIP TEST SCH ×3 (06:50→16:15)
[2019-06-03] MEDS: INSULIN LISPRO 100 UNITS/ML SUBCUT SCH ×3 (07:20→16:57)
[2019-06-03] MEDS: FUROSEMIDE 40MG/4ML VIAL IV SCH (09:08)
[2019-06-03] MEDS: DOCUSATE SODIUM 100MG CAPSULE PO PRN (09:09)
[2019-06-03] MEDS: ASPIRIN 81MG EC TABLET PO SCH (09:09)
[2019-06-03] MEDS: METHIMAZOLE 5MG TABLET PO SCH ×3 (09:09→16:56)
[2019-06-03] MEDS: LISINOPRIL 20MG TABLET PO SCH (09:09)
[2019-06-03] MEDS: FAMOTIDINE 20MG TABLET PO SCH (09:10)
[2019-06-03] MEDS: HYDROCODONE/ACETAMINOPHEN 10/325MG TABLET PO PRN ×2 (09:10→16:58)
[2019-06-03] MEDS: AMLODIPINE 5MG TABLET PO SCH (09:10)
[2019-06-03] MEDS: PREDNISONE 20MG TABLET PO SCH (09:10)
[2019-06-03] MEDS: DIAZEPAM 5 MG TABLET PO PRN (12:28)
== END 2019-06-03 20:30 | DRG 720 ==
LOC: ER 08:10 → 3WST 10:58 → ENRESERV 15:32
PROVIDERS: ADMIT Internal Medicine; ATTEND Internal Medicine
PROC: 05HY33Z Insertion of Infusion Device into Upper Vein, Percutaneous Approach (ICD-10-PCS; 2019-05-30)
PROC: B54MZZA Ultrasonography of Right Upper Extremity Veins, Guidance (ICD-10-PCS; 2019-05-30)
PROC: 0DP6XUZ Removal of Feeding Device from Stomach, External Approach (ICD-10-PCS; principal; 2019-06-03)
DX: A41.51 Sepsis due to Escherichia coli [E. coli] (principal); J96.21 Acute and chronic respiratory failure with hypoxia; E43 Unspecified severe protein-calorie malnutrition; I50.33 Acute on chronic diastolic (congestive) heart failure; J18.9 Pneumonia, unspecified organism; I11.0 Hypertensive heart disease with heart failure; B37.0 Candidal stomatitis; E87.8 Other disorders of electrolyte and fluid balance, not elsewhere classified; E87.5 Hyperkalemia; E87.1 Hypo-osmolality and hyponatremia; F13.20 Sedative, hypnotic or anxiolytic dependence, uncomplicated; D64.9 Anemia, unspecified; E11.9 Type 2 diabetes mellitus without complications; I42.9 Cardiomyopathy, unspecified; I27.20 Pulmonary hypertension, unspecified; I47.1 Supraventricular tachycardia; B37.9 Candidiasis, unspecified; I48.91 Unspecified atrial fibrillation; J44.1 Chronic obstructive pulmonary disease with (acute) exacerbation; N39.0 Urinary tract infection, site not specified; E03.9 Hypothyroidism, unspecified; E05.90 Thyrotoxicosis, unspecified without thyrotoxic crisis or storm; F41.9 Anxiety disorder, unspecified; G89.4 Chronic pain syndrome; I07.1 Rheumatic tricuspid insufficiency; I25.10 Atherosclerotic heart disease of native coronary artery without angina pectoris; J44.0 Chronic obstructive pulmonary disease with (acute) lower respiratory infection; K21.9 Gastro-esophageal reflux disease without esophagitis; K29.70 Gastritis, unspecified, without bleeding; K59.00 Constipation, unspecified; R47.02 Dysphasia; Z16.12 Extended spectrum beta lactamase (ESBL) resistance; Z93.1 Gastrostomy status; Z99.81 Dependence on supplemental oxygen; Z88.0 Allergy status to penicillin; Z88.8 Allergy status to other drugs, medicaments and biological substances; Z88.1 Allergy status to other antibiotic agents; Z79.82 Long term (current) use of aspirin; Z79.899 Other long term (current) drug therapy; Z79.1 Long term (current) use of non-steroidal anti-inflammatories (NSAID); Z68.31 Body mass index [BMI] 31.0-31.9, adult
CPT/HCPCS: 36415; 36573; 36600; 71045; 80048; 80061; 81003; 82375; 82805; 82962; 83880; 84439; 84443; 84484; 87077; 87186; 90686; 93005; 94640; 94644; 96374; 97162; 97166; 99291; C1725; J0360; J1815; J1940; J1956; J2930; J3490; J7512; J7611; J7620; A4315

== ENCOUNTER 2019-08-26 23:52 | Inpatient (IN) | payer MEDICARE, MEDICAID ==
[~2019-08-26] VITALS: Ht 167.6 cm; Wt 72.6 kg
[~2019-08-26 23:52] MED LIST changes: +OMEP20CA14 MT; -OMEP20CA5 MT
[2019-08-27] MEDS ORDERED: ONDANSETRON HCL 4MG/2ML INJ IV STA (00:48)
[2019-08-27] MEDS ORDERED: VISCOUS LIDOCAINE 2% 15 ML UDC PO ONE (01:00)
[2019-08-27] MEDS ORDERED: ASPIRIN 81MG TABLET PO ONE (01:00)
[2019-08-27] MEDS ORDERED: MAGNESIUM/ALUMINUM HYDROXIDE/SIMETHICONE 30ML UDC PO ONE (01:00)
[2019-08-27 01:50] LABS: EOSINOPHILS % 2.5 % (0.0-5.0); HEMATOCRIT. 21.7 % (36.0-48.0); LYMPHOCYTES % 19.2 % (20.0-50.0); MEAN CORPUSCULAR HEMOGLOBIN 27.1 pg (28.0-32.0); MEAN CORPUSCULAR VOLUME 84.4 fL (81.0-99.0); MEAN PLATELET VOLUME 6.7 fl (7.4-10.4); MONOCYTES % 12.8 % (2.0-8.0); NEUTROPHILS % 64.5 % (40.0-76.0); PLATELET 350 x1000/uL (130-400); RED BLOOD CELL COUNT 2.57 mill/uL (4.2-5.4); RED CELL DISTRIBUTION WIDTH 16.6 % (11.6-14.6)
[2019-08-27 01:51] LABS: CHLORIDE 107 mEq/L (98-107)
[2019-08-27] MEDS ORDERED: KETOROLAC 15MG/ML VIAL IV ONE (03:45)
[2019-08-27] MEDS ORDERED: ACETAMINOPHEN 325MG TABLET PO PRN (08:00)
[2019-08-27] MEDS ORDERED: ONDANSETRON HCL 4MG/2ML INJ IV PRN (08:00)
[2019-08-27] MEDS: FUROSEMIDE 40MG/4ML VIAL IVP SCH (13:00)
[2019-08-27 15:07] LABS: CLARITY URINE TURBID (CLEAR); COLOR URINE YELLOW (YELLOW); KETONES URINE NEGATIVE (NEGATIVE); LEUKOCYTE ESTERASE URINE 3+ (NEGATIVE); NITRITE URINE POSITIVE (NEGATIVE); OCCULT BLOOD URINE NEGATIVE (NEGATIVE); PH URINE 5.5 (4.5-8.0); PROTEIN URINE TRACE (NEGATIVE); SPECIFIC GRAVITY URINE 1.018 (1.005-1.030); UROBILINOGEN URINE 0.2 E.U./dL (0.2-1.0)
[2019-08-27 16:19] VITALS: BP 124/75
[2019-08-27] MEDS ORDERED: LEVOFLOXACIN 250MG PREMIX 50 ML IV SCH (20:00)
[2019-08-27] MEDS: MORPHINE SULFATE 2 MG/ML CPJ (NOT FOR IM USE) IV PRN (20:31)
[2019-08-27 21:00] VITALS: BP 114/69
[2019-08-27] MEDS: BUDESONIDE 0.5MG/2ML NEB HHN SCH (21:25)
[2019-08-28] VITALS: BP 122/71
[2019-08-28 04:00] VITALS: BP 139/70
[2019-08-28 07:53] LABS: BASOPHILS % 0.9 % (0.0-2.0); EOSINOPHILS % 7.2 % (0.0-5.0); HEMATOCRIT. 22.4 % (36.0-48.0); HEMOGLOBIN. 7.3 g/dL (12.0-16.0); LYMPHOCYTES % 17.1 % (20.0-50.0); MEAN CORPUSCULAR HEMOGLOBIN 27.7 pg (28.0-32.0); MEAN CORPUSCULAR VOLUME 84.6 fL (81.0-99.0); MEAN PLATELET VOLUME 6.8 fl (7.4-10.4); MONOCYTES % 12.5 % (2.0-8.0); NEUTROPHILS % 62.3 % (40.0-76.0); PLATELET 307 x1000/uL (130-400); RED BLOOD CELL COUNT 2.64 mill/uL (4.2-5.4); RED CELL DISTRIBUTION WIDTH 15.7 % (11.6-14.6)
[2019-08-28 07:54] LABS: CHLORIDE 109 mEq/L (98-107)
[2019-08-28 08:00] VITALS: BP 151/67
[2019-08-28] MEDS: FUROSEMIDE 40MG/4ML VIAL IVP SCH (09:29)
[2019-08-28] MEDS: BUDESONIDE 0.5MG/2ML NEB HHN SCH ×2 (09:36→21:46)
[2019-08-28] MEDS: IPRATROPIUM/ALBUTEROL 0.5-3(2.5)MG/3ML NEB HHN PRN (09:36)
[2019-08-28] MEDS: MORPHINE SULFATE 2 MG/ML CPJ (NOT FOR IM USE) IV PRN ×3 (11:25→21:52)
[2019-08-28 12:00] VITALS: BP 132/78
[2019-08-28 16:00] VITALS: BP 128/62
[2019-08-28] MEDS ORDERED: DILT90TA2 PO (16:38)
[2019-08-28] MEDS ORDERED: DIGO250T79 MT (16:38)
[2019-08-28] MEDS ORDERED: NITR0.4T49 SL (18:46)
[2019-08-28] MEDS ORDERED: POLY17PO3 MT (18:46)
[2019-08-28] MEDS ORDERED: HYDR-3282 MT (18:46)
[2019-08-28] MEDS ORDERED: GABA-529 PO (18:46)
[2019-08-28] MEDS ORDERED: DULO60CA64 MT (18:46)
[2019-08-28] MEDS ORDERED: ERGO500013 MT (18:46)
[2019-08-28] MEDS ORDERED: LIDO700A30 TP (18:46)
[2019-08-28] MEDS ORDERED: TAP5 PO (18:46)
[2019-08-28] MEDS ORDERED: FURO20TA4 MT (18:46)
[2019-08-28 20:00] VITALS: BP 133/65
[2019-08-28] MEDS ORDERED: HYDROCODONE/ACETAMINOPHEN 5/325MG TABLET PO PRN (22:15)
[2019-08-28] MEDS ORDERED: LEVOFLOXACIN 250MG PREMIX 50 ML IV SCH (23:00)
[2019-08-29] VITALS: BP 129/63
[2019-08-29 04:00] VITALS: BP 151/70
[2019-08-29 08:00] LABS: EOSINOPHILS % 8.2 % (0.0-5.0); HEMATOCRIT. 23.2 % (36.0-48.0); HEMOGLOBIN. 7.5 g/dL (12.0-16.0); LYMPHOCYTES % 15.9 % (20.0-50.0); MEAN CORPUSCULAR HEMOGLOBIN 27.4 pg (28.0-32.0); MEAN CORPUSCULAR VOLUME 84.9 fL (81.0-99.0); MEAN PLATELET VOLUME 6.9 fl (7.4-10.4); MONOCYTES % 13.2 % (2.0-8.0); NEUTROPHILS % 61.7 % (40.0-76.0); PLATELET 338 x1000/uL (130-400); RED BLOOD CELL COUNT 2.73 mill/uL (4.2-5.4); RED CELL DISTRIBUTION WIDTH 16.4 % (11.6-14.6)
[2019-08-29] MEDS: BUDESONIDE 0.5MG/2ML NEB HHN SCH ×2 (08:28→20:37)
[2019-08-29] MEDS: FUROSEMIDE 40MG/4ML VIAL IVP SCH (09:00)
[2019-08-29 09:13] LABS: CHLORIDE 108 mEq/L (98-107)
[2019-08-29] MEDS ORDERED: FUROSEMIDE 20MG TABLET PO SCH (09:45)
[2019-08-29] MEDS ORDERED: DIAZEPAM 5 MG TABLET PO PRN (09:45)
[2019-08-29] MEDS ORDERED: NITROGLYCERIN 0.4MG TABLET SL SL PRN (09:45)
[2019-08-29] MEDS: GABAPENTIN 100MG CAPSULE PO SCH ×3 (10:30→21:26)
[2019-08-29] MEDS: DULOXETINE HCL 60MG DR CAPSULE PO SCH (10:30)
[2019-08-29] MEDS: ASPIRIN 81MG EC TABLET PO SCH (10:30)
[2019-08-29] MEDS: METHIMAZOLE 5MG TABLET PO SCH ×3 (10:30→21:26)
[2019-08-29] MEDS: DILTIAZEM HCL 90MG TABLET PO SCH ×2 (11:46→17:24)
[2019-08-29 12:00] VITALS: BP 148/85
[2019-08-29] MEDS: DOCUSATE SODIUM 250MG CAPSULE PO SCH (12:52)
[2019-08-29] MEDS: HYDROCODONE/ACETAMINOPHEN 10/325MG TABLET PO PRN (12:53)
[2019-08-29] MEDS: SULFAMETHOXAZOLE/TRIMETHOPRIM 800/160MG TABLET PO SCH ×2 (12:54→21:26)
[2019-08-29 16:00] VITALS: BP 129/73
[2019-08-29] MEDS: DIGOXIN 250MCG TABLET PO SCH (17:25)
[2019-08-29] MEDS: FERROUS SULFATE 325MG TABLET PO SCH (17:25)
[2019-08-29 20:00] VITALS: BP 128/62
[2019-08-30] VITALS (7 sets, daily range): BP systolic 119–166; BP diastolic 55–91
[2019-08-30] MEDS: DILTIAZEM HCL 90MG TABLET PO SCH ×4 (00:18→18:22)
[2019-08-30] MEDS: HYDROCODONE/ACETAMINOPHEN 10/325MG TABLET PO PRN ×2 (05:14→13:37)
[2019-08-30] MEDS: METHIMAZOLE 5MG TABLET PO SCH ×2 (05:17→13:31)
[2019-08-30] MEDS: GABAPENTIN 100MG CAPSULE PO SCH ×2 (05:17→13:30)
[2019-08-30 06:45] LABS: EOSINOPHILS % 5.5 % (0.0-5.0); HEMATOCRIT. 23.2 % (36.0-48.0); HEMOGLOBIN. 7.5 g/dL (12.0-16.0); LYMPHOCYTES % 18.9 % (20.0-50.0); MEAN CORPUSCULAR HEMOGLOBIN 27.7 pg (28.0-32.0); MEAN CORPUSCULAR VOLUME 85.9 fL (81.0-99.0); MEAN PLATELET VOLUME 6.9 fl (7.4-10.4); MONOCYTES % 12.9 % (2.0-8.0); NEUTROPHILS % 61.7 % (40.0-76.0); PLATELET 353 x1000/uL (130-400); RED CELL DISTRIBUTION WIDTH 16.3 % (11.6-14.6)
[2019-08-30 06:56] LABS: CHLORIDE 107 mEq/L (98-107)
[2019-08-30] MEDS: IPRATROPIUM/ALBUTEROL 0.5-3(2.5)MG/3ML NEB HHN PRN (07:41)
[2019-08-30] MEDS: BUDESONIDE 0.5MG/2ML NEB HHN SCH (07:41)
[2019-08-30] MEDS: FUROSEMIDE 40MG/4ML VIAL IVP SCH ×2 (09:00→10:02)
[2019-08-30] MEDS: DULOXETINE HCL 60MG DR CAPSULE PO SCH (10:02)
[2019-08-30] MEDS: FERROUS SULFATE 325MG TABLET PO SCH (10:03)
[2019-08-30] MEDS: DOCUSATE SODIUM 250MG CAPSULE PO SCH (10:03)
[2019-08-30] MEDS: SULFAMETHOXAZOLE/TRIMETHOPRIM 800/160MG TABLET PO SCH (10:03)
[2019-08-30] MEDS: ASPIRIN 81MG EC TABLET PO SCH (10:03)
[2019-08-30] MEDS: DIGOXIN 250MCG TABLET PO SCH (18:22)
== END 2019-08-30 21:42 | DRG 720 ==
LOC: ER 23:52 → EDBEDREQ 08-27 05:18 → EDBEDREQTM 08-27 05:18 → ENRESERV 08-27 14:49 → 5WST 08-27 15:26
PROVIDERS: ADMIT Internal Medicine; ATTEND Internal Medicine
PROC: 30233N1 Transfusion of Nonautologous Red Blood Cells into Peripheral Vein, Percutaneous Approach (ICD-10-PCS; principal; 2019-08-27)
DX: A41.9 Sepsis, unspecified organism (principal); J96.20 Acute and chronic respiratory failure, unspecified whether with hypoxia or hypercapnia; E43 Unspecified severe protein-calorie malnutrition; I50.33 Acute on chronic diastolic (congestive) heart failure; N39.0 Urinary tract infection, site not specified; D64.9 Anemia, unspecified; J44.9 Chronic obstructive pulmonary disease, unspecified; I48.91 Unspecified atrial fibrillation; I47.1 Supraventricular tachycardia; M94.0 Chondrocostal junction syndrome [Tietze]; F41.9 Anxiety disorder, unspecified; I11.0 Hypertensive heart disease with heart failure; E03.9 Hypothyroidism, unspecified; Z87.891 Personal history of nicotine dependence; Z68.25 Body mass index [BMI] 25.0-25.9, adult; Z88.1 Allergy status to other antibiotic agents; Z88.0 Allergy status to penicillin; Z88.8 Allergy status to other drugs, medicaments and biological substances; Z79.82 Long term (current) use of aspirin; Z79.899 Other long term (current) drug therapy
CPT/HCPCS: 36415; 36430; 71045; 80048; 80053; 80162; 81003; 82270; 83735; 83880; 84484; 85025; 86850; 86870; 86900; 86920; 87077; 87186; 93005; 93306; 94640; 96374; 99285; J1885; J1940; J1956; J2270; J2405; J7620; J7626; P9016

== ENCOUNTER 2019-09-30 23:43 | Inpatient (IN) | payer MEDICARE, MEDICAID ==
[~2019-09-30] VITALS: Ht 172.7 cm; Wt 80.5 kg
[~2019-09-30 23:43] MED LIST changes: +DIGO250T79 MT; +DILT90TA2 PO; +DULO60CA64 MT; +ERGO500013 MT; +FURO20TA4 MT; +GABA-529 PO; +HYDR-3282 MT; +LIDO700A30 TP; +NITR0.4T49 SL; +POLY17PO3 MT; +TAP5 PO
[2019-10-01] VITALS (8 sets, daily range): BP systolic 105–144; BP diastolic 38–71
[2019-10-01 00:36] LABS: HEMATOCRIT. 26.4 % (36.0-48.0); HEMOGLOBIN. 8.6 g/dL (12.0-16.0); MEAN CORPUSCULAR HEMOGLOBIN 30.5 pg (28.0-32.0); MEAN CORPUSCULAR VOLUME 93.7 fL (81.0-99.0); PLATELET 327 x1000/uL (130-400); RED BLOOD CELL COUNT 2.82 mill/uL (4.2-5.4); RED CELL DISTRIBUTION WIDTH 15.8 % (11.6-14.6)
[2019-10-01] MEDS: IPRATROPIUM BROMIDE (0.02%) 0.5MG/2.5ML NEB HHN SCH (00:36)
[2019-10-01 00:46] LABS: CHLORIDE 106 mEq/L (98-107); PARTIAL THROMBOPLASTIN TIME 26.8 sec (23.4-31.0)
[2019-10-01] MEDS ORDERED: ACETAMINOPHEN 325MG TABLET PO ONE (02:15)
[2019-10-01] MEDS ORDERED: HYDROCODONE/ACETAMINOPHEN 5/325MG TABLET PO PRN (03:15)
[2019-10-01] MEDS ORDERED: ACETAMINOPHEN 325MG TABLET PO PRN (03:15)
[2019-10-01] MEDS ORDERED: IPRATROPIUM/ALBUTEROL 0.5-3(2.5)MG/3ML NEB HHN PRN (03:15)
[2019-10-01] MEDS ORDERED: HYDROCODONE/ACETAMINOPHEN 10/325MG TABLET PO ONE (03:15)
[2019-10-01] MEDS ORDERED: GUAIFENESIN 200MG/10ML SUGAR FREE UDC PO PRN (03:15)
[2019-10-01] MEDS ORDERED: MAGNESIUM/ALUMINUM HYDROXIDE/SIMETHICONE 30ML UDC PO PRN (03:15)
[2019-10-01] MEDS ORDERED: ONDANSETRON HCL 4MG/2ML INJ IV PRN (03:15)
[2019-10-01] MEDS ORDERED: DIPHENHYDRAMINE 50MG/ML VIAL IV PRN (03:15)
[2019-10-01] MEDS ORDERED: CLONIDINE 0.1MG TABLET PO PRN (03:15)
[2019-10-01 03:56] LABS: PLATELET ESTIMATE NORMAL
[2019-10-01] MEDS: SODIUM CHLORIDE 0.9% INJ 3ML FLUSH IVF SCH ×3 (06:00→21:10)
[2019-10-01] MEDS: HYDRALAZINE HCL 10MG TABLET PO SCH ×3 (06:00→21:10)
[2019-10-01] MEDS ORDERED: IPRATROPIUM/ALBUTEROL 0.5-3(2.5)MG/3ML NEB HHN SCH (08:00)
[2019-10-01] MEDS: FOLIC ACID 1MG TABLET PO SCH (08:50)
[2019-10-01] MEDS: DOCUSATE SODIUM 100MG CAPSULE PO SCH ×2 (08:50→17:01)
[2019-10-01] MEDS: FERROUS SULFATE 325MG TABLET PO SCH ×3 (08:50→17:01)
[2019-10-01] MEDS: DIAZEPAM 5 MG TABLET PO SCH ×2 (08:50→20:24)
[2019-10-01] MEDS: BUDESONIDE 0.5MG/2ML NEB HHN SCH (13:01)
[2019-10-01] MEDS ORDERED: MORPHINE SULFATE 2 MG/ML CPJ (NOT FOR IM USE) IV PRN (13:45)
[2019-10-01] MEDS ORDERED: IPRATROPIUM BROMIDE (0.02%) 0.5MG/2.5ML NEB HHN SCH (14:00)
[2019-10-01] MEDS ORDERED: BUDESONIDE 0.5MG/2ML NEB HHN SCH (14:30)
[2019-10-01] MEDS ORDERED: DOCUSATE SODIUM 100MG CAPSULE PO SCH (17:00)
[2019-10-01] MEDS: METHIMAZOLE 5MG TABLET PO SCH (17:01)
[2019-10-01] MEDS: DIGOXIN 250MCG TABLET PO SCH (17:02)
[2019-10-01] MEDS: DILTIAZEM HCL 30MG TABLET PO SCH (17:02)
[2019-10-01 17:32] LABS: T4 FREE 0.89 ng/dL (0.76-1.46)
[2019-10-01] MEDS ORDERED: DIGOXIN 125MCG TABLET PO SCH (18:00)
[2019-10-01] MEDS: HYDROCODONE/ACETAMINOPHEN 5/325MG TABLET PO PRN (19:22)
[2019-10-01] MEDS: PANTOPRAZOLE 40MG DR TABLET PO SCH (20:24)
[2019-10-01] MEDS: GABAPENTIN 100MG CAPSULE PO SCH (21:09)
[2019-10-02] VITALS (12 sets, daily range): BP systolic 115–149; BP diastolic 60–88
[2019-10-02] MEDS: BUDESONIDE 0.5MG/2ML NEB HHN SCH ×3 (00:35→20:15)
[2019-10-02] MEDS: GABAPENTIN 100MG CAPSULE PO SCH ×3 (05:42→21:01)
[2019-10-02] MEDS: SODIUM CHLORIDE 0.9% INJ 3ML FLUSH IVF SCH ×3 (05:43→21:01)
[2019-10-02] MEDS: HYDRALAZINE HCL 10MG TABLET PO SCH ×3 (05:43→21:00)
[2019-10-02] MEDS: DILTIAZEM HCL 30MG TABLET PO SCH ×5 (05:43→23:09)
[2019-10-02] MEDS: PANTOPRAZOLE 40MG DR TABLET PO SCH ×2 (05:50→20:49)
[2019-10-02 06:43] LABS: BASOPHILS % 0.9 % (0.0-2.0); EOSINOPHILS % 3.3 % (0.0-5.0); HEMATOCRIT. 22.4 % (36.0-48.0); HEMOGLOBIN. 7.2 g/dL (12.0-16.0); LYMPHOCYTES % 15.4 % (20.0-50.0); MEAN CORPUSCULAR HEMOGLOBIN 30.8 pg (28.0-32.0); MEAN CORPUSCULAR VOLUME 95.5 fL (81.0-99.0); MEAN PLATELET VOLUME 7.5 fl (7.4-10.4); MONOCYTES % 10.7 % (2.0-8.0); NEUTROPHILS % 69.7 % (40.0-76.0); PLATELET 244 x1000/uL (130-400); RED BLOOD CELL COUNT 2.35 mill/uL (4.2-5.4); RED CELL DISTRIBUTION WIDTH 16.6 % (11.6-14.6)
[2019-10-02 06:49] LABS: CHLORIDE 110 mEq/L (98-107)
[2019-10-02] MEDS: FOLIC ACID 1MG TABLET PO SCH (08:48)
[2019-10-02] MEDS: DOCUSATE SODIUM 100MG CAPSULE PO SCH ×2 (08:48→17:31)
[2019-10-02] MEDS: FUROSEMIDE 20MG TABLET PO SCH (08:49)
[2019-10-02] MEDS: FERROUS SULFATE 325MG TABLET PO SCH ×3 (08:49→17:31)
[2019-10-02] MEDS: ASPIRIN 81MG EC TABLET PO SCH (08:49)
[2019-10-02] MEDS: DIAZEPAM 5 MG TABLET PO SCH ×2 (08:49→20:49)
[2019-10-02] MEDS: POLYETHYLENE GLYCOL 3350 (17GM) 1 DOSE PACK PO SCH (09:05)
[2019-10-02] MEDS: DULOXETINE HCL 60MG DR CAPSULE PO SCH (09:05)
[2019-10-02] MEDS: METHIMAZOLE 5MG TABLET PO SCH ×3 (09:05→17:32)
[2019-10-02] MEDS: IPRATROPIUM BROMIDE (0.02%) 0.5MG/2.5ML NEB HHN SCH ×3 (09:27→20:16)
[2019-10-02] MEDS: HYDROCODONE/ACETAMINOPHEN 5/325MG TABLET PO PRN (16:05)
[2019-10-02] MEDS: DIGOXIN 250MCG TABLET PO SCH (17:32)
[2019-10-03] VITALS (8 sets, daily range): BP systolic 114–157; BP diastolic 49–79
[2019-10-03] MEDS: HYDROCODONE/ACETAMINOPHEN 5/325MG TABLET PO PRN ×2 (03:03→20:27)
[2019-10-03] MEDS: IPRATROPIUM BROMIDE (0.02%) 0.5MG/2.5ML NEB HHN SCH ×3 (04:31→15:20)
[2019-10-03] MEDS: GABAPENTIN 100MG CAPSULE PO SCH ×3 (05:00→20:28)
[2019-10-03] MEDS: SODIUM CHLORIDE 0.9% INJ 3ML FLUSH IVF SCH ×3 (05:01→20:28)
[2019-10-03] MEDS: HYDRALAZINE HCL 10MG TABLET PO SCH ×3 (05:01→21:36)
[2019-10-03] MEDS: DILTIAZEM HCL 30MG TABLET PO SCH ×3 (05:01→17:49)
[2019-10-03] MEDS: PANTOPRAZOLE 40MG DR TABLET PO SCH ×2 (06:02→20:25)
[2019-10-03] MEDS: BUDESONIDE 0.5MG/2ML NEB HHN SCH ×2 (08:14→21:14)
[2019-10-03] MEDS: POLYETHYLENE GLYCOL 3350 (17GM) 1 DOSE PACK PO SCH ×2 (09:36→09:44)
[2019-10-03] MEDS: DOCUSATE SODIUM 100MG CAPSULE PO SCH ×2 (09:36→17:48)
[2019-10-03] MEDS: METHIMAZOLE 5MG TABLET PO SCH ×3 (09:36→17:48)
[2019-10-03] MEDS: FERROUS SULFATE 325MG TABLET PO SCH ×3 (09:36→17:48)
[2019-10-03] MEDS: ASPIRIN 81MG EC TABLET PO SCH (09:36)
[2019-10-03] MEDS: FUROSEMIDE 20MG TABLET PO SCH (09:37)
[2019-10-03] MEDS: DULOXETINE HCL 60MG DR CAPSULE PO SCH (09:37)
[2019-10-03] MEDS: DIAZEPAM 5 MG TABLET PO SCH ×2 (09:37→20:27)
[2019-10-03] MEDS: FOLIC ACID 1MG TABLET PO SCH (09:37)
[2019-10-03] MEDS ORDERED: SODIUM BICARBONATE 4% (2.4MEQ) 5ML VIAL IV ONE (11:37)
[2019-10-03] MEDS ORDERED: LIDOCAINE HCL 1% 20ML VIAL (Pyxis) INJ ONE (11:37)
[2019-10-03] MEDS ORDERED: IOHEXOL-350 100 ML BOTTLE ONE (13:17)
[2019-10-03] MEDS: DIGOXIN 250MCG TABLET PO SCH (17:48)
[2019-10-03] MEDS: NITROGLYCERIN 0.4MG TABLET SL SL PRN ×2 (23:26→23:46)
[2019-10-04] VITALS: BP 92/52
[2019-10-04] MEDS ORDERED: HYDROCODONE/ACETAMINOPHEN 5/325MG TABLET PO ONE (00:15)
[2019-10-04 04:00] VITALS: BP 142/64
[2019-10-04] MEDS: IPRATROPIUM BROMIDE (0.02%) 0.5MG/2.5ML NEB HHN SCH ×2 (04:52→08:02)
[2019-10-04] MEDS: GABAPENTIN 100MG CAPSULE PO SCH ×2 (05:57→15:11)
[2019-10-04] MEDS: SODIUM CHLORIDE 0.9% INJ 3ML FLUSH IVF SCH ×2 (05:57→14:00)
[2019-10-04] MEDS: DILTIAZEM HCL 30MG TABLET PO SCH ×3 (05:58→12:00)
[2019-10-04] MEDS: HYDRALAZINE HCL 10MG TABLET PO SCH ×2 (05:58→14:00)
[2019-10-04 08:00] VITALS: BP 108/61
[2019-10-04] MEDS: BUDESONIDE 0.5MG/2ML NEB HHN SCH (08:02)
[2019-10-04] MEDS: FUROSEMIDE 20MG TABLET PO SCH (09:28)
[2019-10-04] MEDS: PANTOPRAZOLE 40MG DR TABLET PO SCH (09:28)
[2019-10-04] MEDS: METHIMAZOLE 5MG TABLET PO SCH ×2 (09:29→12:48)
[2019-10-04] MEDS: FERROUS SULFATE 325MG TABLET PO SCH ×2 (09:29→12:48)
[2019-10-04] MEDS: DOCUSATE SODIUM 100MG CAPSULE PO SCH (09:29)
[2019-10-04] MEDS: ASPIRIN 81MG EC TABLET PO SCH (09:29)
[2019-10-04] MEDS: DULOXETINE HCL 60MG DR CAPSULE PO SCH (09:29)
[2019-10-04] MEDS: FOLIC ACID 1MG TABLET PO SCH (09:29)
[2019-10-04] MEDS: DIAZEPAM 5 MG TABLET PO SCH (09:29)
[2019-10-04 12:00] VITALS: BP 108/74
[2019-10-04 14:16] VITALS: BP 108/74
== END 2019-10-04 16:55 | DRG 133 ==
LOC: ER 23:43 → 3WST 10-01 02:39 → CANRESERV 10-01 04:20 → ENRESERV 10-01 04:20 → 7WST 10-03 10:50
PROVIDERS: ADMIT Internal Medicine; ATTEND Internal Medicine
PROC: 02HV33Z Insertion of Infusion Device into Superior Vena Cava, Percutaneous Approach (ICD-10-PCS; principal; 2019-10-03)
PROC: B548ZZA Ultrasonography of Superior Vena Cava, Guidance (ICD-10-PCS; 2019-10-03)
PROC: B5181ZA Fluoroscopy of Superior Vena Cava using Low Osmolar Contrast, Guidance (ICD-10-PCS; 2019-10-03)
DX: J96.00 Acute respiratory failure, unspecified whether with hypoxia or hypercapnia (principal); I27.20 Pulmonary hypertension, unspecified; Z93.0 Tracheostomy status; I50.32 Chronic diastolic (congestive) heart failure; I11.0 Hypertensive heart disease with heart failure; I07.1 Rheumatic tricuspid insufficiency; E44.1 Mild protein-calorie malnutrition; I48.0 Paroxysmal atrial fibrillation; I47.1 Supraventricular tachycardia; Z99.81 Dependence on supplemental oxygen; R07.89 Other chest pain; F41.1 Generalized anxiety disorder; D64.9 Anemia, unspecified; K21.9 Gastro-esophageal reflux disease without esophagitis; E05.20 Thyrotoxicosis with toxic multinodular goiter without thyrotoxic crisis or storm; Z60.2 Problems related to living alone; J43.9 Emphysema, unspecified; E03.9 Hypothyroidism, unspecified; Z88.0 Allergy status to penicillin; Z68.27 Body mass index [BMI] 27.0-27.9, adult; Z86.11 Personal history of tuberculosis; Z88.6 Allergy status to analgesic agent; Z88.1 Allergy status to other antibiotic agents; Z88.8 Allergy status to other drugs, medicaments and biological substances; Z79.82 Long term (current) use of aspirin; Z79.899 Other long term (current) drug therapy; I25.2 Old myocardial infarction
CPT/HCPCS: 36415; 36573; 71045; 71275; 76937; 80048; 80053; 83735; 83880; 84439; 84443; 84481; 84484; 85025; 85379; 93005; 93306; 94640; 99285; C1725; J3490; J7620; J7626; Q9967

== ENCOUNTER 2019-10-06 13:08 | Inpatient (IN) | payer MEDICARE, MEDICAID ==
[~2019-10-06] VITALS: Ht 182.9 cm; Wt 75.9 kg
[2019-10-06] MEDS ORDERED: SODIUM CHLORIDE 0.9% 1,000 ML IV ONE (15:07)
[2019-10-06 15:50] LABS: CLARITY URINE TURBID (CLEAR); COLOR URINE YELLOW (YELLOW); KETONES URINE NEGATIVE (NEGATIVE); LEUKOCYTE ESTERASE URINE 3+ (NEGATIVE); NITRITE URINE NEGATIVE (NEGATIVE); OCCULT BLOOD URINE 1+ (NEGATIVE); PH URINE 5.5 (4.5-8.0); PROTEIN URINE 1+ (NEGATIVE); SPECIFIC GRAVITY URINE 1.015 (1.005-1.030); UROBILINOGEN URINE 0.2 E.U./dL (0.2-1.0)
[2019-10-06 16:48] LABS: MEAN CORPUSCULAR HEMOGLOBIN 29.1 pg (28.0-32.0); MEAN CORPUSCULAR VOLUME 93.2 fL (81.0-99.0); MEAN PLATELET VOLUME 7.9 fl (7.4-10.4); PLATELET 232 x1000/uL (130-400); RED BLOOD CELL COUNT 1.82 mill/uL (4.2-5.4); RED CELL DISTRIBUTION WIDTH 15.9 % (11.6-14.6)
[2019-10-06 16:51] LABS: HEMOGLOBIN. 5.3 g/dL (12.0-16.0)
[2019-10-06 16:56] LABS: PARTIAL THROMBOPLASTIN TIME 25.4 sec (23.4-31.0); PROTHROMBIN TIME 10.8 sec (9.6-11.0)
[2019-10-06 17:02] LABS: CHLORIDE 104 mEq/L (98-107)
[2019-10-06 17:10] LABS: CREATINE KINASE 46 IU/L (26-192)
[2019-10-06 17:12] LABS: CREATINE KINASE MB FRACTION < 1.0 ng/mL (0.5-3.6)
[2019-10-06] MEDS ORDERED: LEVOFLOXACIN 750MG PREMIX 150 ML IV ONE (17:15)
[2019-10-06 17:25] LABS: DIGOXIN 2.5 ng/mL (0.9-2.0)
[2019-10-06 17:28] LABS: PLATELET ESTIMATE NORMAL
[2019-10-06] MEDS ORDERED: ONDANSETRON HCL 4MG/2ML INJ IV ONE (18:30)
[2019-10-06] MEDS ORDERED: MORPHINE SULFATE 4 MG/ML CPJ (NOT FOR IM USE) IV ONE (18:30)
[2019-10-06] MEDS ORDERED: HYDROCODONE/APAP 7.5/325MG 1 TAB TABLET PO ONE (19:00)
[2019-10-06] MEDS ORDERED: IPRATROPIUM/ALBUTEROL 0.5-3(2.5)MG/3ML NEB HHN ONE (20:15)
[2019-10-06] MEDS ORDERED: DOCUSATE SODIUM 100MG CAPSULE PO PRN (21:15)
[2019-10-06] MEDS ORDERED: MAGNESIUM/ALUMINUM HYDROXIDE/SIMETHICONE 30ML UDC PO PRN (21:15)
[2019-10-06] MEDS ORDERED: ACETAMINOPHEN 325MG TABLET PO PRN (21:15)
[2019-10-06] MEDS ORDERED: DIPHENHYDRAMINE 50MG/ML VIAL IV PRN (21:15)
[2019-10-06] MEDS ORDERED: ACETAMINOPHEN 650MG SUPP PR PRN (21:15)
[2019-10-06] MEDS ORDERED: GUAIFENESIN 200MG/10ML SUGAR FREE UDC PO PRN (21:15)
[2019-10-06] MEDS ORDERED: ONDANSETRON HCL 4MG/2ML INJ IV PRN (21:15)
[2019-10-06 21:30] VITALS: BP 115/55
[2019-10-06] MEDS ORDERED: BISA10SU62 RC (22:39)
[2019-10-06] MEDS ORDERED: BUDE0.5A3 IH (22:39)
[2019-10-06] MEDS ORDERED: MOM PO (22:39)
[2019-10-06] MEDS ORDERED: HYDR-4134 PO (22:39)
[2019-10-06] MEDS ORDERED: GABA-531 PO (22:39)
[2019-10-06] MEDS ORDERED: CHOL200059 PO (22:39)
[2019-10-06] MEDS ORDERED: DOCU100T PO (22:39)
[2019-10-06] MEDS ORDERED: PANT40TA4 PO (22:39)
[2019-10-06] MEDS ORDERED: NA P230E RC (22:54)
[2019-10-06] MEDS ORDERED: LOSA50TA41 PO (22:54)
[2019-10-06] MEDS ORDERED: HYDR-4005 PO (22:54)
[2019-10-07] VITALS (16 sets, daily range): BP systolic 102–132; BP diastolic 44–59
[2019-10-07] MEDS: DILTIAZEM HCL 60MG TABLET PO SCH ×5 (00:10→18:45)
[2019-10-07 05:48] LABS: PROTHROMBIN TIME 10.6 sec (9.6-11.0)
[2019-10-07 06:24] LABS: HEMATOCRIT 19.1 % (36.0-48.0); HEMOGLOBIN 6.2 g/dL (12.0-16.0)
[2019-10-07] MEDS: HYDROCODONE/APAP 7.5/325MG 1 TAB TABLET PO PRN ×2 (06:28→14:45)
[2019-10-07 07:25] LABS: MEAN CORPUSCULAR HEMOGLOBIN 31.1 pg (28.0-32.0); MEAN CORPUSCULAR VOLUME 91.5 fL (81.0-99.0); MEAN PLATELET VOLUME 7.2 fl (7.4-10.4); PLATELET 225 x1000/uL (130-400); RED BLOOD CELL COUNT 1.99 mill/uL (4.2-5.4); RED CELL DISTRIBUTION WIDTH 15.5 % (11.6-14.6)
[2019-10-07 07:40] LABS: HEMATOCRIT. 18.2 % (36.0-48.0); HEMOGLOBIN. 6.2 g/dL (12.0-16.0)
[2019-10-07] MEDS: DIAZEPAM 5 MG TABLET PO SCH ×2 (09:27→21:22)
[2019-10-07 10:00] LABS: CHLORIDE 108 mEq/L (98-107)
[2019-10-07 10:08] LABS: HDL CHOLESTEROL 39 mg/dL (40-59); LDL CHOLESTEROL 56 mg/dL (5-100)
[2019-10-07 10:10] LABS: T4 FREE 0.92 ng/dL (0.76-1.46)
[2019-10-07] MEDS ORDERED: BISACODYL 10MG SUPP RC PRN (12:15)
[2019-10-07] MEDS: GABAPENTIN 300MG CAPSULE PO SCH ×2 (12:36→18:42)
[2019-10-07] MEDS: METHIMAZOLE 5MG TABLET PO SCH ×2 (14:43→21:22)
[2019-10-07] MEDS: HYDRALAZINE HCL 25MG TABLET PO SCH ×2 (14:44→21:23)
[2019-10-07 16:52] LABS: HEMATOCRIT 23.9 % (36.0-48.0); HEMOGLOBIN 7.8 g/dL (12.0-16.0); MEAN CORPUSCULAR HEMOGLOBIN 29.7 pg (28.0-32.0); PLATELET 248 x1000/uL (130-400); RED BLOOD CELL COUNT 2.62 mill/uL (4.2-5.4); RED CELL DISTRIBUTION WIDTH 15.3 % (11.6-14.6)
[2019-10-07 16:53] LABS: HEMOGLOBIN. 7.7 g/dL (12.0-16.0); MEAN CORPUSCULAR HEMOGLOBIN 29.1 pg (28.0-32.0); MEAN CORPUSCULAR VOLUME 91.1 fL (81.0-99.0); MEAN PLATELET VOLUME 7.3 fl (7.4-10.4); PLATELET 245 x1000/uL (130-400); RED BLOOD CELL COUNT 2.64 mill/uL (4.2-5.4); RED CELL DISTRIBUTION WIDTH 15.3 % (11.6-14.6)
[2019-10-07 17:09] LABS: PROTHROMBIN TIME 10.6 sec (9.6-11.0)
[2019-10-07 18:09] LABS: TOTAL IRON BINDING CAPACITY 239 ug/dL (250-450)
[2019-10-07 18:10] LABS: FOLIC ACID (FOLATE) SERUM 16.4 ng/mL (>5.38)
[2019-10-07 21:17] LABS: PLATELET ESTIMATE NORMAL
[2019-10-07] MEDS: BUDESONIDE 0.5MG/2ML NEB HHN SCH (21:32)
[2019-10-07 21:37] LABS: PLATELET ESTIMATE NORMAL
[2019-10-08 00:10] VITALS: BP 128/60
[2019-10-08] MEDS: DILTIAZEM HCL 60MG TABLET PO SCH ×4 (00:18→18:12)
[2019-10-08] MEDS: HYDROCODONE/APAP 7.5/325MG 1 TAB TABLET PO PRN ×3 (01:42→18:49)
[2019-10-08 04:00] VITALS: BP 119/53
[2019-10-08 06:13] LABS: BASOPHILS % 0.8 % (0.0-2.0); EOSINOPHILS % 9.7 % (0.0-5.0); HEMATOCRIT. 22.8 % (36.0-48.0); HEMOGLOBIN. 7.5 g/dL (12.0-16.0); LYMPHOCYTES % 11.2 % (20.0-50.0); MEAN CORPUSCULAR HEMOGLOBIN 29.8 pg (28.0-32.0); MEAN PLATELET VOLUME 7.4 fl (7.4-10.4); MONOCYTES % 13.7 % (2.0-8.0); NEUTROPHILS % 64.6 % (40.0-76.0); PLATELET 287 x1000/uL (130-400); RED BLOOD CELL COUNT 2.53 mill/uL (4.2-5.4); RED CELL DISTRIBUTION WIDTH 15.6 % (11.6-14.6)
[2019-10-08] MEDS: METHIMAZOLE 5MG TABLET PO SCH ×3 (06:32→21:11)
[2019-10-08] MEDS: PANTOPRAZOLE 40MG DR TABLET PO SCH (06:32)
[2019-10-08] MEDS: HYDRALAZINE HCL 25MG TABLET PO SCH ×3 (06:32→21:11)
[2019-10-08 06:59] LABS: CHLORIDE 106 mEq/L (98-107)
[2019-10-08 07:32] LABS: DIGOXIN 1.5 ng/mL (0.9-2.0)
[2019-10-08 08:00] VITALS: BP 107/51
[2019-10-08] MEDS ORDERED: DIGOXIN 250MCG TABLET PO SCH (09:00)
[2019-10-08] MEDS ORDERED: LIDOCAINE 5% PATCH TOP SCH (09:00)
[2019-10-08] MEDS: GABAPENTIN 300MG CAPSULE PO SCH ×4 (09:52→18:12)
[2019-10-08] MEDS: DULOXETINE HCL 60MG DR CAPSULE PO SCH (09:52)
[2019-10-08] MEDS: DIAZEPAM 5 MG TABLET PO SCH ×2 (09:52→21:11)
[2019-10-08] MEDS: POLYETHYLENE GLYCOL 3350 (17GM) 1 DOSE PACK PO SCH (09:53)
[2019-10-08] MEDS: BUDESONIDE 0.5MG/2ML NEB HHN SCH ×2 (10:05→20:24)
[2019-10-08 12:00] VITALS: BP 135/54
[2019-10-08] MEDS ORDERED: DIGO125T80 MT (12:06)
[2019-10-08 16:00] VITALS: BP 140/50
[2019-10-08] MEDS: HYDROCODONE/ACETAMINOPHEN 5/325MG TABLET PO PRN (16:14)
[2019-10-08 18:23] LABS: CHLORIDE 106 mEq/L (98-107)
[2019-10-08 20:38] LABS: BASOPHILS % 0.9 % (0.0-2.0); EOSINOPHILS % 8.1 % (0.0-5.0); HEMATOCRIT. 25.4 % (36.0-48.0); HEMOGLOBIN. 8.2 g/dL (12.0-16.0); LYMPHOCYTES % 10.9 % (20.0-50.0); MEAN CORPUSCULAR VOLUME 90.1 fL (81.0-99.0); MEAN PLATELET VOLUME 7.2 fl (7.4-10.4); MONOCYTES % 13.2 % (2.0-8.0); NEUTROPHILS % 66.9 % (40.0-76.0); PLATELET 334 x1000/uL (130-400); RED BLOOD CELL COUNT 2.82 mill/uL (4.2-5.4); RED CELL DISTRIBUTION WIDTH 15.3 % (11.6-14.6)
[2019-10-08 20:39] VITALS: BP 137/55
[2019-10-09] VITALS (11 sets, daily range): BP systolic 130–157; BP diastolic 57–98
[2019-10-09] MEDS: DILTIAZEM HCL 60MG TABLET PO SCH ×4 (00:32→18:06)
[2019-10-09] MEDS: METHIMAZOLE 5MG TABLET PO SCH ×3 (06:48→21:33)
[2019-10-09] MEDS: PANTOPRAZOLE 40MG DR TABLET PO SCH (06:48)
[2019-10-09] MEDS: HYDRALAZINE HCL 25MG TABLET PO SCH ×3 (06:49→21:30)
[2019-10-09 06:53] LABS: BASOPHILS % 0.4 % (0.0-2.0); EOSINOPHILS % 8.2 % (0.0-5.0); HEMATOCRIT. 21.4 % (36.0-48.0); LYMPHOCYTES % 12.3 % (20.0-50.0); MEAN CORPUSCULAR HEMOGLOBIN 29.4 pg (28.0-32.0); MEAN CORPUSCULAR VOLUME 90.4 fL (81.0-99.0); MEAN PLATELET VOLUME 7.1 fl (7.4-10.4); NEUTROPHILS % 67.1 % (40.0-76.0); PLATELET 316 x1000/uL (130-400); RED BLOOD CELL COUNT 2.37 mill/uL (4.2-5.4); RED CELL DISTRIBUTION WIDTH 15.4 % (11.6-14.6)
[2019-10-09 07:27] LABS: CHLORIDE 107 mEq/L (98-107)
[2019-10-09] MEDS: BUDESONIDE 0.5MG/2ML NEB HHN SCH ×2 (08:22→20:03)
[2019-10-09] MEDS: DIAZEPAM 5 MG TABLET PO SCH ×2 (09:32→21:29)
[2019-10-09] MEDS: GABAPENTIN 300MG CAPSULE PO SCH ×3 (09:32→18:03)
[2019-10-09] MEDS: DULOXETINE HCL 60MG DR CAPSULE PO SCH (09:32)
[2019-10-09] MEDS: HYDROCODONE/ACETAMINOPHEN 5/325MG TABLET PO PRN (09:33)
[2019-10-09] MEDS: POLYETHYLENE GLYCOL 3350 (17GM) 1 DOSE PACK PO SCH (09:34)
[2019-10-09] MEDS: HYDROCODONE/APAP 7.5/325MG 1 TAB TABLET PO PRN (15:35)
[2019-10-09] MEDS: FERROUS SULFATE 325MG TABLET PO SCH (18:03)
[2019-10-09 21:21] LABS: HEMOGLOBIN 9.2 g/dL (12.0-16.0)
[2019-10-09 21:26] LABS: PROTHROMBIN TIME 10.1 sec (9.6-11.0)
[2019-10-10] MEDS: DILTIAZEM HCL 60MG TABLET PO SCH ×4 (00:27→17:30)
[2019-10-10] MEDS: HYDROCODONE/APAP 7.5/325MG 1 TAB TABLET PO PRN ×2 (00:37→06:57)
[2019-10-10 00:39] VITALS: BP 174/68
[2019-10-10 04:00] VITALS: BP 149/64
[2019-10-10] MEDS: HYDRALAZINE HCL 25MG TABLET PO SCH ×3 (06:45→22:01)
[2019-10-10] MEDS: METHIMAZOLE 5MG TABLET PO SCH ×3 (06:45→22:01)
[2019-10-10] MEDS: PANTOPRAZOLE 40MG DR TABLET PO SCH (06:45)
[2019-10-10 06:54] LABS: HEMATOCRIT. 25.7 % (36.0-48.0); HEMOGLOBIN. 8.3 g/dL (12.0-16.0); MEAN CORPUSCULAR VOLUME 89.5 fL (81.0-99.0); RED BLOOD CELL COUNT 2.87 mill/uL (4.2-5.4); RED CELL DISTRIBUTION WIDTH 15.3 % (11.6-14.6)
[2019-10-10 07:06] LABS: CHLORIDE 106 mEq/L (98-107)
[2019-10-10] MEDS: DULOXETINE HCL 60MG DR CAPSULE PO SCH (09:11)
[2019-10-10] MEDS: FERROUS SULFATE 325MG TABLET PO SCH ×3 (09:11→17:28)
[2019-10-10] MEDS: DIAZEPAM 5 MG TABLET PO SCH ×2 (09:11→22:01)
[2019-10-10] MEDS: GABAPENTIN 300MG CAPSULE PO SCH ×3 (09:12→17:28)
[2019-10-10] MEDS: POLYETHYLENE GLYCOL 3350 (17GM) 1 DOSE PACK PO SCH (09:12)
[2019-10-10] MEDS: IPRATROPIUM/ALBUTEROL 0.5-3(2.5)MG/3ML NEB HHN PRN ×3 (09:58→16:07)
[2019-10-10] MEDS: BUDESONIDE 0.5MG/2ML NEB HHN SCH ×2 (09:59→20:33)
[2019-10-10 12:00] VITALS: BP 146/66
[2019-10-10 13:41] LABS: PLATELET ESTIMATE NORMAL
[2019-10-10] MEDS: HYDROCODONE/ACETAMINOPHEN 5/325MG TABLET PO PRN ×2 (17:32→22:03)
[2019-10-10 20:30] VITALS: BP 175/57
[2019-10-11] VITALS: BP 137/69
[2019-10-11] MEDS: DILTIAZEM HCL 60MG TABLET PO SCH ×4 (01:08→17:51)
[2019-10-11 04:42] VITALS: BP 149/64
[2019-10-11] MEDS: METHIMAZOLE 5MG TABLET PO SCH ×3 (06:37→21:02)
[2019-10-11] MEDS: PANTOPRAZOLE 40MG DR TABLET PO SCH (06:37)
[2019-10-11] MEDS: HYDRALAZINE HCL 25MG TABLET PO SCH ×3 (06:38→21:02)
[2019-10-11 07:25] LABS: EOSINOPHILS % 6.4 % (0.0-5.0); HEMATOCRIT. 26.1 % (36.0-48.0); HEMOGLOBIN. 8.6 g/dL (12.0-16.0); LYMPHOCYTES % 12.9 % (20.0-50.0); MEAN CORPUSCULAR HEMOGLOBIN 29.2 pg (28.0-32.0); MEAN CORPUSCULAR VOLUME 88.4 fL (81.0-99.0); MEAN PLATELET VOLUME 6.8 fl (7.4-10.4); MONOCYTES % 12.1 % (2.0-8.0); NEUTROPHILS % 67.6 % (40.0-76.0); PLATELET 411 x1000/uL (130-400); RED BLOOD CELL COUNT 2.95 mill/uL (4.2-5.4); RED CELL DISTRIBUTION WIDTH 15.5 % (11.6-14.6)
[2019-10-11 07:37] LABS: CHLORIDE 105 mEq/L (98-107)
[2019-10-11 08:00] VITALS: BP 138/66
[2019-10-11] MEDS: IPRATROPIUM/ALBUTEROL 0.5-3(2.5)MG/3ML NEB HHN PRN (09:05)
[2019-10-11] MEDS: FERROUS SULFATE 325MG TABLET PO SCH ×3 (09:11→17:50)
[2019-10-11] MEDS: DULOXETINE HCL 60MG DR CAPSULE PO SCH (09:11)
[2019-10-11] MEDS: DIAZEPAM 5 MG TABLET PO SCH ×2 (09:11→21:02)
[2019-10-11] MEDS: GABAPENTIN 300MG CAPSULE PO SCH ×3 (09:11→17:50)
[2019-10-11] MEDS: POLYETHYLENE GLYCOL 3350 (17GM) 1 DOSE PACK PO SCH (09:11)
[2019-10-11 12:17] VITALS: BP 154/65
[2019-10-11] MEDS ORDERED: MAGNESIUM HYDROXIDE 400MG/5ML 30ML UDC PO PRN (15:45)
[2019-10-11 16:14] VITALS: BP 187/61
[2019-10-11] MEDS: HYDROCODONE/ACETAMINOPHEN 5/325MG TABLET PO PRN ×2 (19:51→21:01)
[2019-10-11 20:00] VITALS: BP 154/70
[2019-10-12] MEDS: DILTIAZEM HCL 60MG TABLET PO SCH ×2 (00:12→06:20)
[2019-10-12 00:54] VITALS: BP 145/73
[2019-10-12] MEDS ORDERED: HYDROCODONE/ACETAMINOPHEN 5/325MG TABLET PO PRN (01:30)
[2019-10-12] MEDS: HYDROCODONE/APAP 7.5/325MG 1 TAB TABLET PO PRN ×2 (01:50→08:58)
[2019-10-12 04:00] VITALS: BP 158/66
[2019-10-12 06:06] VITALS: BP 158/66
[2019-10-12] MEDS: PANTOPRAZOLE 40MG DR TABLET PO SCH (06:20)
[2019-10-12] MEDS: HYDRALAZINE HCL 25MG TABLET PO SCH (06:20)
[2019-10-12] MEDS: METHIMAZOLE 5MG TABLET PO SCH (06:20)
[2019-10-12 07:45] LABS: HEMATOCRIT. 25.3 % (36.0-48.0); HEMOGLOBIN. 8.3 g/dL (12.0-16.0); MEAN CORPUSCULAR HEMOGLOBIN 29.1 pg (28.0-32.0); MEAN CORPUSCULAR VOLUME 88.2 fL (81.0-99.0); MEAN PLATELET VOLUME 6.5 fl (7.4-10.4); PLATELET 412 x1000/uL (130-400); RED BLOOD CELL COUNT 2.87 mill/uL (4.2-5.4); RED CELL DISTRIBUTION WIDTH 15.7 % (11.6-14.6)
[2019-10-12 07:50] LABS: CHLORIDE 105 mEq/L (98-107)
[2019-10-12 08:12] VITALS: BP 139/73
[2019-10-12] MEDS: POLYETHYLENE GLYCOL 3350 (17GM) 1 DOSE PACK PO SCH (08:39)
[2019-10-12] MEDS: DULOXETINE HCL 60MG DR CAPSULE PO SCH (08:40)
[2019-10-12] MEDS: GABAPENTIN 300MG CAPSULE PO SCH (08:40)
[2019-10-12] MEDS: DIAZEPAM 5 MG TABLET PO SCH (08:40)
[2019-10-12] MEDS: FERROUS SULFATE 325MG TABLET PO SCH (08:40)
[2019-10-12 08:58] VITALS: BP 139/73
[2019-10-12 16:42] LABS: PLATELET ESTIMATE INCREASED
== END 2019-10-12 11:42 | DRG 253 ==
LOC: ER 13:18 → 6WST 18:24 → EDBEDREQTM 19:59 → EDBEDREQ 19:59 → ENRESERV 20:34
PROVIDERS: ADMIT Family Medicine Adult Medicine; ATTEND Family Medicine Adult Medicine
PROC: 30233N1 Transfusion of Nonautologous Red Blood Cells into Peripheral Vein, Percutaneous Approach (ICD-10-PCS; principal; 2019-10-07)
DX: K92.2 Gastrointestinal hemorrhage, unspecified (principal); E43 Unspecified severe protein-calorie malnutrition; I50.31 Acute diastolic (congestive) heart failure; N39.0 Urinary tract infection, site not specified; I48.0 Paroxysmal atrial fibrillation; J44.9 Chronic obstructive pulmonary disease, unspecified; D62 Acute posthemorrhagic anemia; I11.0 Hypertensive heart disease with heart failure; M94.0 Chondrocostal junction syndrome [Tietze]; K57.90 Diverticulosis of intestine, part unspecified, without perforation or abscess without bleeding; F41.9 Anxiety disorder, unspecified; R07.9 Chest pain, unspecified; T46.0X5A Adverse effect of cardiac-stimulant glycosides and drugs of similar action, initial encounter; E03.9 Hypothyroidism, unspecified; E78.5 Hyperlipidemia, unspecified; Z79.51 Long term (current) use of inhaled steroids; Z79.899 Other long term (current) drug therapy; Z88.8 Allergy status to other drugs, medicaments and biological substances; Z79.82 Long term (current) use of aspirin; I25.2 Old myocardial infarction; Z86.010 Personal history of colon polyps; Z87.19 Personal history of other diseases of the digestive system; Y92.89 Other specified places as the place of occurrence of the external cause
CPT/HCPCS: 36415; 71045; 80048; 80053; 80061; 80162; 81003; 82270; 82550; 82553; 82607; 82728; 82746; 83540; 83550; 83605; 83735; 83880; 84439; 84443; 84484; 85014; 85018; 85025; 85027; 85044; 85049; 85384; 86850; 86870; 86900; 86920; 93005; 93970; 94640; 96365; 97162; 99291; J1956; J2270; J2405; J7030; J7040; J7626; P9016

== ENCOUNTER 2019-12-14 01:20 | Inpatient (IN) | payer MEDICARE, MEDICAID ==
[~2019-12-14] VITALS: Ht 182.9 cm; Wt 63.3 kg
[~2019-12-14 01:20] MED LIST changes: -ASPI-1158 PO; +BISA10SU62 RC; +BUDE0.5A3 IH; +CHOL200059 PO; +DIGO125T80 MT; -DIGO250T79 MT; +DOCU100T PO; -ERGO500013 MT; -GABA-529 PO; +GABA-531 PO; +HYDR-4005 PO; -HYDR-4009 MT; +HYDR-4134 PO; +LOSA50TA41 PO; +MOM PO; +NA P230E RC; -OMEP20CA14 MT; +PANT40TA4 PO
[2019-12-14] MEDS ORDERED: ACETAMINOPHEN 500MG TABLET PO SCH (02:00)
[2019-12-14 02:24] LABS: HEMATOCRIT. 35.4 % (36.0-48.0); HEMOGLOBIN. 11.4 g/dL (12.0-16.0); MEAN CORPUSCULAR HEMOGLOBIN 26.4 pg (28.0-32.0); MEAN CORPUSCULAR VOLUME 82.1 fL (81.0-99.0); MEAN PLATELET VOLUME 7.1 fl (7.4-10.4); PLATELET 243 x1000/uL (130-400); RED BLOOD CELL COUNT 4.31 mill/uL (4.2-5.4); RED CELL DISTRIBUTION WIDTH 16.1 % (11.6-14.6)
[2019-12-14 02:32] LABS: CHLORIDE 100 mEq/L (98-107)
[2019-12-14 02:33] LABS: D-DIMER 0.98 mg/L FEU (<0.50); PROTHROMBIN TIME 10.7 sec (9.6-11.0)
[2019-12-14 02:41] LABS: CREATINE KINASE 28 IU/L (26-192)
[2019-12-14 03:24] LABS: CLARITY URINE TURBID (CLEAR); COLOR URINE YELLOW (YELLOW); KETONES URINE NEGATIVE (NEGATIVE); LEUKOCYTE ESTERASE URINE 3+ (NEGATIVE); NITRITE URINE POSITIVE (NEGATIVE); OCCULT BLOOD URINE TRACE (NEGATIVE); PH URINE 7.5 (4.5-8.0); PROTEIN URINE 1+ (NEGATIVE); UROBILINOGEN URINE 0.2 E.U./dL (0.2-1.0)
[2019-12-14 03:28] LABS: PLATELET ESTIMATE NORMAL
[2019-12-14] MEDS ORDERED: LEVOFLOXACIN 750MG PREMIX 150 ML IV SCH (03:30)
[2019-12-14 12:00] VITALS: BP 152/77
[2019-12-14] MEDS: LOSARTAN POTASSIUM 50 MG TABLET PO SCH ×2 (15:24→20:54)
[2019-12-14] MEDS ORDERED: DILTIAZEM HCL 5MG/ML 5ML VIAL IV NR (15:30)
[2019-12-14 16:00] VITALS: BP 151/84
[2019-12-14] MEDS ORDERED: ONDANSETRON HCL 4MG/2ML INJ IV PRN (16:45)
[2019-12-14] MEDS ORDERED: GUAIFENESIN 200MG/10ML SUGAR FREE UDC PO PRN (16:45)
[2019-12-14] MEDS ORDERED: ACETAMINOPHEN 325MG TABLET PO PRN ×2 (16:45)
[2019-12-14] MEDS ORDERED: DIPHENHYDRAMINE 50MG/ML VIAL IV PRN (16:45)
[2019-12-14] MEDS ORDERED: MAGNESIUM/ALUMINUM HYDROXIDE/SIMETHICONE 30ML UDC PO PRN (16:45)
[2019-12-14] MEDS ORDERED: ALBUTEROL 6.7GM HFA INHALER ORI PRN (16:45)
[2019-12-14] MEDS ORDERED: ZOLPIDEM TARTRATE 5MG TABLET PO PRN (16:45)
[2019-12-14] MEDS ORDERED: NA PHOS,M-B/NA PHOS,DI-BA ENEMA 118ML PR PRN (16:45)
[2019-12-14] MEDS: DOCUSATE SODIUM 100MG CAPSULE PO SCH (18:37)
[2019-12-14] MEDS: DILTIAZEM HCL 30MG TABLET PO SCH (18:38)
[2019-12-14] MEDS: DULOXETINE HCL 60MG DR CAPSULE PO SCH (18:38)
[2019-12-14] MEDS: METHIMAZOLE 5MG TABLET PO SCH ×2 (18:39→20:54)
[2019-12-14 20:00] VITALS: BP 167/87
[2019-12-14] MEDS: PANTOPRAZOLE 40MG DR TABLET PO SCH (20:53)
[2019-12-14] MEDS: ENOXAPARIN 60MG/0.6ML SYR SUBCUT SCH (20:53)
[2019-12-14] MEDS: DIAZEPAM 5 MG TABLET PO SCH (20:54)
[2019-12-14] MEDS: SODIUM CHLORIDE 0.9% INJ 3ML FLUSH IVF SCH (20:55)
[2019-12-14] MEDS: GABAPENTIN 300MG CAPSULE PO SCH (20:56)
[2019-12-15] VITALS: BP 179/93
[2019-12-15] MEDS: DILTIAZEM HCL 30MG TABLET PO SCH ×2 (02:21→05:39)
[2019-12-15] MEDS ORDERED: DILTIAZEM HCL 5MG/ML 5ML VIAL IV NR ×2 (03:00→12:00)
[2019-12-15 04:00] VITALS: BP 93/52
[2019-12-15] MEDS: SODIUM CHLORIDE 0.9% INJ 3ML FLUSH IVF SCH ×4 (05:38→21:46)
[2019-12-15] MEDS: GABAPENTIN 300MG CAPSULE PO SCH ×3 (05:39→21:46)
[2019-12-15] MEDS: METHIMAZOLE 5MG TABLET PO SCH (05:40)
[2019-12-15 08:00] VITALS: BP 144/74
[2019-12-15 08:46] LABS: BASOPHILS % 0.4 % (0.0-2.0); EOSINOPHILS % 0.1 % (0.0-5.0); HEMATOCRIT. 34.2 % (36.0-48.0); HEMOGLOBIN. 10.9 g/dL (12.0-16.0); LYMPHOCYTES % 9.8 % (20.0-50.0); MEAN CORPUSCULAR HEMOGLOBIN 26.4 pg (28.0-32.0); MEAN CORPUSCULAR VOLUME 82.7 fL (81.0-99.0); MEAN PLATELET VOLUME 7.5 fl (7.4-10.4); MONOCYTES % 12.1 % (2.0-8.0); NEUTROPHILS % 77.6 % (40.0-76.0); PLATELET 228 x1000/uL (130-400); RED BLOOD CELL COUNT 4.13 mill/uL (4.2-5.4); RED CELL DISTRIBUTION WIDTH 15.9 % (11.6-14.6)
[2019-12-15 08:49] LABS: CHLORIDE 101 mEq/L (98-107)
[2019-12-15 09:02] LABS: PHOSPHORUS 2.9 mg/dL (2.5-4.9)
[2019-12-15 09:04] LABS: T4 FREE 0.62 ng/dL (0.76-1.46)
[2019-12-15] MEDS: DILTIAZEM HCL 5MG/ML 5ML VIAL IV PRN (10:09)
[2019-12-15] MEDS: DIAZEPAM 5 MG TABLET PO SCH ×2 (10:10→21:46)
[2019-12-15] MEDS: DOCUSATE SODIUM 100MG CAPSULE PO SCH ×2 (10:10→17:39)
[2019-12-15] MEDS: PANTOPRAZOLE 40MG DR TABLET PO SCH ×2 (10:10→21:46)
[2019-12-15] MEDS: DULOXETINE HCL 60MG DR CAPSULE PO SCH (10:10)
[2019-12-15] MEDS: ENOXAPARIN 60MG/0.6ML SYR SUBCUT SCH ×2 (10:10→21:46)
[2019-12-15] MEDS: LOSARTAN POTASSIUM 50 MG TABLET PO SCH ×2 (10:10→21:46)
[2019-12-15 12:00] VITALS: BP 129/83
[2019-12-15] MEDS ORDERED: NEBIVOLOL HCL 5 MG TABLET PO NR (12:30)
[2019-12-15] MEDS: DILTIAZEM HCL 60MG TABLET PO SCH ×2 (12:40→17:39)
[2019-12-15] MEDS: HYDROCODONE/ACETAMINOPHEN 5/325MG TABLET PO PRN (13:35)
[2019-12-15 16:00] VITALS: BP 114/82
[2019-12-15] MEDS: ALBUTEROL 6.7GM HFA INHALER ORI SCH ×2 (17:30→23:10)
[2019-12-15] MEDS: LEVOFLOXACIN 500MG TABLET PO SCH (17:39)
[2019-12-15] MEDS: METHYLPREDNISOLONE SOD SUCC 40 MG/ML VIAL IV SCH (17:40)
[2019-12-15 20:00] VITALS: BP 136/72
[2019-12-15 20:21] LABS: COVID-19 PCR RNA NOT DETECTED
[2019-12-16] VITALS (13 sets, daily range): BP systolic 119–172; BP diastolic 61–98
[2019-12-16] MEDS: DILTIAZEM HCL 60MG TABLET PO SCH ×3 (00:31→12:22)
[2019-12-16] MEDS: ALBUTEROL 6.7GM HFA INHALER ORI SCH (02:53)
[2019-12-16 06:14] LABS: CHLORIDE 101 mEq/L (98-107)
[2019-12-16 06:37] LABS: BASOPHILS % 0.2 % (0.0-2.0); HEMATOCRIT. 33.1 % (36.0-48.0); HEMOGLOBIN. 10.9 g/dL (12.0-16.0); LYMPHOCYTES % 7.6 % (20.0-50.0); MEAN CORPUSCULAR HEMOGLOBIN 27.1 pg (28.0-32.0); MEAN CORPUSCULAR VOLUME 82.5 fL (81.0-99.0); MEAN PLATELET VOLUME 7.4 fl (7.4-10.4); MONOCYTES % 2.3 % (2.0-8.0); NEUTROPHILS % 89.9 % (40.0-76.0); PLATELET 210 x1000/uL (130-400); RED BLOOD CELL COUNT 4.01 mill/uL (4.2-5.4); RED CELL DISTRIBUTION WIDTH 16.1 % (11.6-14.6)
[2019-12-16] MEDS: PANTOPRAZOLE 40MG DR TABLET PO SCH ×2 (06:44→21:07)
[2019-12-16] MEDS: GABAPENTIN 300MG CAPSULE PO SCH ×3 (06:44→21:08)
[2019-12-16] MEDS: SODIUM CHLORIDE 0.9% INJ 3ML FLUSH IVF SCH ×4 (06:45→22:00)
[2019-12-16] MEDS: ALBUTEROL (0.083%) 2.5MG/3ML NEB HHN SCH ×2 (08:32→13:00)
[2019-12-16] MEDS: LOSARTAN POTASSIUM 50 MG TABLET PO SCH ×2 (09:01→21:07)
[2019-12-16] MEDS: DIAZEPAM 5 MG TABLET PO SCH ×2 (09:01→21:07)
[2019-12-16] MEDS: METHYLPREDNISOLONE SOD SUCC 40 MG/ML VIAL IV SCH ×2 (09:01→17:16)
[2019-12-16] MEDS: DOCUSATE SODIUM 100MG CAPSULE PO SCH ×2 (09:01→17:16)
[2019-12-16] MEDS: METHIMAZOLE 5MG TABLET PO SCH (09:01)
[2019-12-16] MEDS: DULOXETINE HCL 60MG DR CAPSULE PO SCH (09:01)
[2019-12-16] MEDS: ENOXAPARIN 60MG/0.6ML SYR SUBCUT SCH ×2 (09:02→21:08)
[2019-12-16] MEDS: LEVOFLOXACIN 500MG TABLET PO SCH (12:23)
[2019-12-16] MEDS: NEBIVOLOL HCL 5 MG TABLET PO SCH ×2 (14:06→21:06)
[2019-12-16 22:40] LABS: CLARITY URINE CLOUDY (CLEAR); COLOR URINE YELLOW (YELLOW); KETONES URINE NEGATIVE (NEGATIVE); LEUKOCYTE ESTERASE URINE 3+ (NEGATIVE); NITRITE URINE NEGATIVE (NEGATIVE); OCCULT BLOOD URINE 3+ (NEGATIVE); PH URINE 5.5 (4.5-8.0); PROTEIN URINE TRACE (NEGATIVE)
[2019-12-17] VITALS (13 sets, daily range): BP systolic 144–165; BP diastolic 65–100
[2019-12-17] MEDS: SODIUM CHLORIDE 0.9% INJ 3ML FLUSH IVF SCH ×3 (06:00→21:37)
[2019-12-17] MEDS: PANTOPRAZOLE 40MG DR TABLET PO SCH ×2 (06:16→21:02)
[2019-12-17] MEDS: GABAPENTIN 300MG CAPSULE PO SCH ×3 (06:16→21:03)
[2019-12-17 06:32] LABS: HEMATOCRIT. 30.3 % (36.0-48.0); HEMOGLOBIN. 9.9 g/dL (12.0-16.0); MEAN CORPUSCULAR HEMOGLOBIN 27.2 pg (28.0-32.0); MEAN CORPUSCULAR VOLUME 82.7 fL (81.0-99.0); MEAN PLATELET VOLUME 7.5 fl (7.4-10.4); PLATELET 218 x1000/uL (130-400); RED BLOOD CELL COUNT 3.66 mill/uL (4.2-5.4); RED CELL DISTRIBUTION WIDTH 15.8 % (11.6-14.6)
[2019-12-17] MEDS: DILTIAZEM HCL 5MG/ML 5ML VIAL IV PRN (06:34)
[2019-12-17 06:37] LABS: CHLORIDE 99 mEq/L (98-107)
[2019-12-17] MEDS: DULOXETINE HCL 60MG DR CAPSULE PO SCH (09:13)
[2019-12-17] MEDS: DIAZEPAM 5 MG TABLET PO SCH ×2 (09:13→21:02)
[2019-12-17] MEDS: LOSARTAN POTASSIUM 50 MG TABLET PO SCH ×2 (09:13→21:01)
[2019-12-17] MEDS: NEBIVOLOL HCL 5 MG TABLET PO SCH ×2 (09:13→21:01)
[2019-12-17] MEDS: DOCUSATE SODIUM 100MG CAPSULE PO SCH ×2 (09:13→17:18)
[2019-12-17] MEDS: METHIMAZOLE 5MG TABLET PO SCH (09:13)
[2019-12-17] MEDS: METHYLPREDNISOLONE SOD SUCC 40 MG/ML VIAL IV SCH ×2 (09:13→17:18)
[2019-12-17] MEDS: ENOXAPARIN 60MG/0.6ML SYR SUBCUT SCH ×2 (09:14→21:02)
[2019-12-17 13:26] LABS: PLATELET ESTIMATE NORMAL
[2019-12-17] MEDS: HYDROCODONE/ACETAMINOPHEN 5/325MG TABLET PO PRN ×2 (14:19→21:04)
[2019-12-17] MEDS: MEROPENEM-0.9% SODIUM CHLORIDE 50 ML IV SCH ×2 (15:45→21:35)
[2019-12-18] VITALS (12 sets, daily range): BP systolic 131–155; BP diastolic 60–82
[2019-12-18] MEDS: PANTOPRAZOLE 40MG DR TABLET PO SCH ×2 (06:03→20:02)
[2019-12-18] MEDS: GABAPENTIN 300MG CAPSULE PO SCH ×3 (06:03→22:18)
[2019-12-18] MEDS: MEROPENEM-0.9% SODIUM CHLORIDE 50 ML IV SCH ×3 (06:03→22:18)
[2019-12-18] MEDS: SODIUM CHLORIDE 0.9% INJ 3ML FLUSH IVF SCH ×3 (06:23→22:18)
[2019-12-18] MEDS: DOCUSATE SODIUM 100MG CAPSULE PO SCH ×2 (08:47→17:00)
[2019-12-18] MEDS: LOSARTAN POTASSIUM 50 MG TABLET PO SCH ×2 (08:47→20:02)
[2019-12-18] MEDS: METHYLPREDNISOLONE SOD SUCC 40 MG/ML VIAL IV SCH ×2 (08:47→17:16)
[2019-12-18] MEDS: NEBIVOLOL HCL 5 MG TABLET PO SCH ×2 (08:47→20:03)
[2019-12-18] MEDS: DULOXETINE HCL 60MG DR CAPSULE PO SCH (08:47)
[2019-12-18] MEDS: ENOXAPARIN 60MG/0.6ML SYR SUBCUT SCH ×2 (08:48→20:08)
[2019-12-18] MEDS: METHIMAZOLE 5MG TABLET PO SCH (08:48)
[2019-12-18] MEDS: DIAZEPAM 5 MG TABLET PO SCH ×2 (08:48→20:02)
[2019-12-18 10:00] LABS: HEMATOCRIT 35.2 % (36.0-48.0); MEAN CORPUSCULAR HEMOGLOBIN 26.4 pg (28.0-32.0); MEAN CORPUSCULAR VOLUME 84.4 fL (81.0-99.0); PLATELET 245 x1000/uL (130-400); RED BLOOD CELL COUNT 4.17 mill/uL (4.2-5.4); RED CELL DISTRIBUTION WIDTH 15.6 % (11.6-14.6)
[2019-12-18 10:11] LABS: CHLORIDE 102 mEq/L (98-107)
[2019-12-18] MEDS: ALBUTEROL (0.083%) 2.5MG/3ML NEB HHN PRN (12:59)
[2019-12-18] MEDS: HYDROCODONE/ACETAMINOPHEN 5/325MG TABLET PO PRN (20:12)
[2019-12-19] VITALS (13 sets, daily range): BP systolic 139–174; BP diastolic 60–78
[2019-12-19] MEDS: IPRATROPIUM/ALBUTEROL 0.5-3(2.5)MG/3ML NEB HHN SCH ×2 (00:56→17:10)
[2019-12-19] MEDS: GABAPENTIN 300MG CAPSULE PO SCH ×3 (05:43→21:34)
[2019-12-19] MEDS: MEROPENEM-0.9% SODIUM CHLORIDE 50 ML IV SCH ×4 (05:43→22:00)
[2019-12-19] MEDS: SODIUM CHLORIDE 0.9% INJ 3ML FLUSH IVF SCH ×3 (05:43→21:34)
[2019-12-19] MEDS: PANTOPRAZOLE 40MG DR TABLET PO SCH (05:45)
[2019-12-19] MEDS: ALBUTEROL (0.083%) 2.5MG/3ML NEB HHN PRN (08:25)
[2019-12-19] MEDS: DULOXETINE HCL 60MG DR CAPSULE PO SCH (08:51)
[2019-12-19] MEDS: ENOXAPARIN 60MG/0.6ML SYR SUBCUT SCH ×2 (08:51→21:35)
[2019-12-19] MEDS: DOCUSATE SODIUM 100MG CAPSULE PO SCH ×2 (08:51→17:38)
[2019-12-19] MEDS: METHIMAZOLE 5MG TABLET PO SCH (08:51)
[2019-12-19] MEDS: DIAZEPAM 5 MG TABLET PO SCH ×2 (08:51→21:32)
[2019-12-19] MEDS: METHYLPREDNISOLONE SOD SUCC 40 MG/ML VIAL IV SCH (08:51)
[2019-12-19] MEDS: NEBIVOLOL HCL 5 MG TABLET PO SCH ×2 (08:52→21:34)
[2019-12-19] MEDS: LOSARTAN POTASSIUM 50 MG TABLET PO SCH ×2 (08:53→21:32)
[2019-12-19] MEDS: HYDROCODONE/ACETAMINOPHEN 5/325MG TABLET PO PRN (14:18)
[2019-12-19] MEDS ORDERED: HYDRALAZINE 20MG/ML VIAL IV PRN (17:45)
[2019-12-19] MEDS: FAMOTIDINE 20MG TABLET PO SCH (21:33)
[2019-12-20] VITALS (13 sets, daily range): BP systolic 123–172; BP diastolic 53–79
[2019-12-20] MEDS: SODIUM CHLORIDE 0.9% INJ 3ML FLUSH IVF SCH ×2 (06:00→13:16)
[2019-12-20] MEDS: MEROPENEM-0.9% SODIUM CHLORIDE 50 ML IV SCH (06:00)
[2019-12-20] MEDS: GABAPENTIN 300MG CAPSULE PO SCH ×2 (06:18→13:51)
[2019-12-20] MEDS: FAMOTIDINE 20MG TABLET PO SCH (06:18)
[2019-12-20] MEDS: IPRATROPIUM/ALBUTEROL 0.5-3(2.5)MG/3ML NEB HHN SCH ×2 (08:24→15:49)
[2019-12-20] MEDS: ENOXAPARIN 60MG/0.6ML SYR SUBCUT SCH (08:39)
[2019-12-20] MEDS: NEBIVOLOL HCL 5 MG TABLET PO SCH (08:40)
[2019-12-20] MEDS: DULOXETINE HCL 60MG DR CAPSULE PO SCH (08:40)
[2019-12-20] MEDS: DOCUSATE SODIUM 100MG CAPSULE PO SCH ×2 (08:40→18:00)
[2019-12-20] MEDS: LOSARTAN POTASSIUM 50 MG TABLET PO SCH (08:40)
[2019-12-20] MEDS: METHIMAZOLE 5MG TABLET PO SCH (08:40)
[2019-12-20 08:41] LABS: BASOPHILS % 0.2 % (0.0-2.0); EOSINOPHILS % 2.5 % (0.0-5.0); HEMATOCRIT. 34.8 % (36.0-48.0); HEMOGLOBIN. 11.1 g/dL (12.0-16.0); LYMPHOCYTES % 17.9 % (20.0-50.0); MEAN CORPUSCULAR HEMOGLOBIN 26.8 pg (28.0-32.0); MEAN CORPUSCULAR VOLUME 84.2 fL (81.0-99.0); MEAN PLATELET VOLUME 7.4 fl (7.4-10.4); MONOCYTES % 10.7 % (2.0-8.0); NEUTROPHILS % 68.7 % (40.0-76.0); PLATELET 235 x1000/uL (130-400); RED BLOOD CELL COUNT 4.14 mill/uL (4.2-5.4); RED CELL DISTRIBUTION WIDTH 15.3 % (11.6-14.6)
[2019-12-20 08:49] LABS: CHLORIDE 103 mEq/L (98-107)
[2019-12-20] MEDS ORDERED: METHYLPREDNISOLONE SOD SUCC 40 MG/ML VIAL IV SCH (09:00)
[2019-12-20] MEDS ORDERED: NITROFURANTOIN 100MG M/M CAPSULE PO SCH (10:00)
[2019-12-20] MEDS: HYDROCODONE/ACETAMINOPHEN 5/325MG TABLET PO PRN ×2 (10:01→18:03)
[2019-12-20] MEDS ORDERED: APIXABAN 5 MG TABLET PO SCH (17:00)
[2019-12-20] MEDS ORDERED: NEBIVOLOL HCL 5 MG TABLET PO SCH (21:00)
== END 2019-12-20 19:32 | DRG 720 ==
LOC: ER 01:32 → 7WST 04:20 → ENRESERV 10:23 → 3WST 12-16 01:08
PROVIDERS: ADMIT Internal Medicine; ATTEND Internal Medicine
DX: A41.9 Sepsis, unspecified organism (principal); J96.00 Acute respiratory failure, unspecified whether with hypoxia or hypercapnia; I27.20 Pulmonary hypertension, unspecified; I48.0 Paroxysmal atrial fibrillation; I47.1 Supraventricular tachycardia; I11.0 Hypertensive heart disease with heart failure; I31.3 Pericardial effusion (noninflammatory); I50.32 Chronic diastolic (congestive) heart failure; E46 Unspecified protein-calorie malnutrition; I08.2 Rheumatic disorders of both aortic and tricuspid valves; J44.1 Chronic obstructive pulmonary disease with (acute) exacerbation; F41.1 Generalized anxiety disorder; G89.4 Chronic pain syndrome; N39.0 Urinary tract infection, site not specified; K21.9 Gastro-esophageal reflux disease without esophagitis; D63.8 Anemia in other chronic diseases classified elsewhere; E78.5 Hyperlipidemia, unspecified; I48.92 Unspecified atrial flutter; E05.90 Thyrotoxicosis, unspecified without thyrotoxic crisis or storm; Z20.828 Contact with and (suspected) exposure to other viral communicable diseases; Z99.81 Dependence on supplemental oxygen; Z68.1 Body mass index [BMI] 19.9 or less, adult; Z88.8 Allergy status to other drugs, medicaments and biological substances; Z79.899 Other long term (current) drug therapy; I25.2 Old myocardial infarction
CPT/HCPCS: 36415; 71045; 80048; 80053; 81003; 82550; 82728; 83605; 83615; 83735; 83880; 84100; 84145; 84439; 84443; 84484; 85025; 85027; 85379; 86140; 86850; 86870; 86900; 87077; 87186; 87804; 93005; 93306; 93970; 94640; 97162; 97530; 99291; J0360; J1650; J1956; J2185; J2920; J3490; J7050

== ENCOUNTER 2020-02-20 15:03 | Inpatient (IN) | payer MEDICARE, MEDICAID ==
[~2020-02-20] VITALS: Ht 180.3 cm; Wt 71.7 kg
[2020-02-20] MEDS ORDERED: ACETAMINOPHEN 325MG TABLET PO PRN (18:00)
[2020-02-20] MEDS ORDERED: LEVOFLOXACIN 500MG PREMIX 100 ML IV SCH (18:00)
[2020-02-20] MEDS ORDERED: ONDANSETRON HCL 4MG/2ML INJ IV PRN (18:00)
[2020-02-20 18:27] LABS: BASOPHILS % 0.9 % (0.0-2.0); EOSINOPHILS % 1.6 % (0.0-5.0); HEMATOCRIT. 34.9 % (36.0-48.0); HEMOGLOBIN. 11.2 g/dL (12.0-16.0); LYMPHOCYTES % 25.9 % (20.0-50.0); MEAN CORPUSCULAR VOLUME 87.1 fL (81.0-99.0); MEAN PLATELET VOLUME 7.5 fl (7.4-10.4); MONOCYTES % 9.7 % (2.0-8.0); NEUTROPHILS % 61.9 % (40.0-76.0); PLATELET 365 x1000/uL (130-400); RED BLOOD CELL COUNT 4.01 mill/uL (4.2-5.4); RED CELL DISTRIBUTION WIDTH 15.8 % (11.6-14.6)
[2020-02-20 18:31] LABS: CHLORIDE 98 mEq/L (98-107)
[2020-02-20 18:35] LABS: C REACTIVE PROTEIN QUANT 2.7 mg/L (0.0-3.0)
[2020-02-20 18:39] LABS: CREATINE KINASE 39 IU/L (26-192)
[2020-02-20 18:42] LABS: CLARITY URINE CLOUDY (CLEAR); COLOR URINE YELLOW (YELLOW); KETONES URINE TRACE (NEGATIVE); LEUKOCYTE ESTERASE URINE 3+ (NEGATIVE); NITRITE URINE NEGATIVE (NEGATIVE); OCCULT BLOOD URINE NEGATIVE (NEGATIVE); PH URINE >=9.0 (4.5-8.0); PROTEIN URINE 2+ (NEGATIVE); SPECIFIC GRAVITY URINE 1.021 (1.005-1.030)
[2020-02-20 18:53] LABS: D-DIMER 0.6 mg/L FEU (<0.50); PROTHROMBIN TIME 10.7 sec (9.6-11.0)
[2020-02-20] MEDS ORDERED: TRAZODONE HCL 50MG TABLET PO PRN (21:00)
[2020-02-20] MEDS: HEPARIN 5000 UNITS/ML VIAL SUBCUT SCH (21:33)
[2020-02-21] VITALS: BP 115/68
[2020-02-21 09:00] VITALS: BP 153/69
[2020-02-21] MEDS: HEPARIN 5000 UNITS/ML VIAL SUBCUT SCH ×2 (09:57→20:53)
[2020-02-21 11:12] LABS: BASOPHILS % 1.3 % (0.0-2.0); EOSINOPHILS % 0.9 % (0.0-5.0); HEMATOCRIT. 36.1 % (36.0-48.0); HEMOGLOBIN. 11.6 g/dL (12.0-16.0); LYMPHOCYTES % 21.3 % (20.0-50.0); MEAN CORPUSCULAR HEMOGLOBIN 28.1 pg (28.0-32.0); MEAN CORPUSCULAR VOLUME 87.1 fL (81.0-99.0); MEAN PLATELET VOLUME 7.3 fl (7.4-10.4); MONOCYTES % 9.9 % (2.0-8.0); NEUTROPHILS % 66.6 % (40.0-76.0); PLATELET 307 x1000/uL (130-400); RED BLOOD CELL COUNT 4.14 mill/uL (4.2-5.4); RED CELL DISTRIBUTION WIDTH 15.5 % (11.6-14.6)
[2020-02-21 11:24] LABS: CHLORIDE 99 mEq/L (98-107)
[2020-02-21 11:41] LABS: T4 FREE 0.66 ng/dL (0.76-1.46)
[2020-02-21 12:00] VITALS: BP 116/71
[2020-02-21] MEDS: ALBUTEROL 6.7GM HFA INHALER ORI SCH (12:23)
[2020-02-21] MEDS: FLUTICASONE FUROATE 100 1 INH/CAP ORI SCH ×2 (12:29→20:54)
[2020-02-21 16:00] VITALS: BP 127/76
[2020-02-21] MEDS: AZTREONAM 2 GM in DEXT 5% WATER 100 ML IV SCH (16:34)
[2020-02-21] MEDS: LEVOFLOXACIN 250MG PREMIX 50 ML IV SCH (17:48)
[2020-02-21 20:00] VITALS: BP 149/76
[2020-02-21] MEDS ORDERED: ENOXAPARIN 80MG/0.8ML SYR SUBCUT SCH (21:00)
[2020-02-21] MEDS: DILTIAZEM HCL 90MG TABLET PO SCH (22:33)
[2020-02-22] VITALS: BP 115/68
[2020-02-22] MEDS: ALBUTEROL 6.7GM HFA INHALER ORI SCH ×5 (01:15→14:50)
[2020-02-22 04:00] VITALS: BP 125/71
[2020-02-22] MEDS: HEPARIN 5000 UNITS/ML VIAL SUBCUT SCH ×3 (06:23→21:39)
[2020-02-22] MEDS: DILTIAZEM HCL 90MG TABLET PO SCH ×3 (06:26→18:00)
[2020-02-22] MEDS: AZTREONAM 2 GM in DEXT 5% WATER 100 ML IV SCH ×2 (06:26→18:36)
[2020-02-22 07:23] LABS: BASOPHILS % 0.8 % (0.0-2.0); EOSINOPHILS % 0.9 % (0.0-5.0); HEMATOCRIT. 37.8 % (36.0-48.0); HEMOGLOBIN. 12.2 g/dL (12.0-16.0); LYMPHOCYTES % 22.4 % (20.0-50.0); MEAN CORPUSCULAR HEMOGLOBIN 27.9 pg (28.0-32.0); MEAN CORPUSCULAR VOLUME 86.3 fL (81.0-99.0); MEAN PLATELET VOLUME 7.5 fl (7.4-10.4); MONOCYTES % 10.1 % (2.0-8.0); NEUTROPHILS % 65.8 % (40.0-76.0); PLATELET 270 x1000/uL (130-400); RED BLOOD CELL COUNT 4.38 mill/uL (4.2-5.4); RED CELL DISTRIBUTION WIDTH 15.1 % (11.6-14.6)
[2020-02-22 07:33] LABS: CHLORIDE 98 mEq/L (98-107)
[2020-02-22 08:00] VITALS: BP 135/66
[2020-02-22] MEDS: FLUTICASONE FUROATE 100 1 INH/CAP ORI SCH ×2 (09:58→21:41)
[2020-02-22 12:06] VITALS: BP 127/65
[2020-02-22] MEDS ORDERED: HYDROCODONE/ACETAMINOPHEN 5/325MG TABLET PO PRN (15:00)
[2020-02-22] MEDS ORDERED: DILTIAZEM HCL 5MG/ML 5ML VIAL IV NR (16:00)
[2020-02-22 16:06] VITALS: BP 100/74
[2020-02-22] MEDS: LEVOFLOXACIN 250MG PREMIX 50 ML IV SCH (18:36)
[2020-02-22 20:00] VITALS: BP 110/63
[2020-02-23] VITALS: BP 119/66
[2020-02-23] MEDS: DILTIAZEM HCL 90MG TABLET PO SCH ×2 (01:02→12:00)
[2020-02-23] MEDS: ALBUTEROL 6.7GM HFA INHALER ORI SCH (01:10)
[2020-02-23 05:45] LABS: CHLORIDE 99 mEq/L (98-107)
[2020-02-23 07:56] LABS: BASOPHILS % 0.4 % (0.0-2.0); EOSINOPHILS % 2.3 % (0.0-5.0); HEMATOCRIT. 32.3 % (36.0-48.0); HEMOGLOBIN. 10.5 g/dL (12.0-16.0); LYMPHOCYTES % 30.9 % (20.0-50.0); MEAN CORPUSCULAR VOLUME 85.9 fL (81.0-99.0); MEAN PLATELET VOLUME 7.9 fl (7.4-10.4); MONOCYTES % 12.2 % (2.0-8.0); NEUTROPHILS % 54.2 % (40.0-76.0); PLATELET 291 x1000/uL (130-400); RED BLOOD CELL COUNT 3.76 mill/uL (4.2-5.4); RED CELL DISTRIBUTION WIDTH 15.4 % (11.6-14.6)
[2020-02-23 08:00] VITALS: BP 120/53
[2020-02-23 12:00] VITALS: BP 126/35
[2020-02-23] MEDS ORDERED: GENTAMICIN SULFATE 140 MG in SODIUM CHLORIDE 0.9% 100 ML IV NR (13:00)
[2020-02-23] MEDS: HEPARIN 5000 UNITS/ML VIAL SUBCUT SCH (13:07)
[2020-02-23 14:06] VITALS: BP 126/55
== END 2020-02-23 17:07 | DRG 720 ==
LOC: ER 15:03 → EDBEDREQ 15:59 → 7WST 17:30 → EDBEDREQ 17:34 → ENRESERV 02-21 08:34
PROVIDERS: ADMIT Internal Medicine; ATTEND Internal Medicine
DX: A41.59 Other Gram-negative sepsis (principal); U07.1 COVID-19; G93.41 Metabolic encephalopathy; E44.0 Moderate protein-calorie malnutrition; I11.0 Hypertensive heart disease with heart failure; I27.20 Pulmonary hypertension, unspecified; I48.0 Paroxysmal atrial fibrillation; I50.9 Heart failure, unspecified; I47.1 Supraventricular tachycardia; I07.1 Rheumatic tricuspid insufficiency; D64.9 Anemia, unspecified; Z99.81 Dependence on supplemental oxygen; E78.5 Hyperlipidemia, unspecified; F41.9 Anxiety disorder, unspecified; I48.92 Unspecified atrial flutter; Z96.642 Presence of left artificial hip joint; N39.0 Urinary tract infection, site not specified; K21.9 Gastro-esophageal reflux disease without esophagitis; J44.9 Chronic obstructive pulmonary disease, unspecified; E05.90 Thyrotoxicosis, unspecified without thyrotoxic crisis or storm; I27.29 Other secondary pulmonary hypertension; B96.20 Unspecified Escherichia coli [E. coli] as the cause of diseases classified elsewhere; Z88.8 Allergy status to other drugs, medicaments and biological substances; Z88.0 Allergy status to penicillin; Z88.1 Allergy status to other antibiotic agents; Z79.899 Other long term (current) drug therapy; I25.2 Old myocardial infarction
CPT/HCPCS: 36415; 71045; 80053; 81003; 82140; 82550; 82728; 82962; 83605; 83615; 83735; 83880; 84145; 84439; 84443; 84481; 84484; 85025; 85379; 85384; 86140; 87077; 87186; 87804; 93005; 96365; 99285; J1580; J1644; J1956; J3490; J7050; J7060; U0003-CS

== ENCOUNTER 2020-03-22 23:15 | Inpatient (IN) | payer MEDICARE, MEDICAID ==
[~2020-03-22] VITALS: Ht 157.5 cm; Wt 67.6 kg
[2020-03-22] MEDS ORDERED: FUROSEMIDE 20MG/2ML VIAL IVP ONE (23:45)
[2020-03-23 00:05] LABS: BASOPHILS % 0.8 % (0.0-2.0); EOSINOPHILS % 0.8 % (0.0-5.0); HEMATOCRIT. 36.7 % (36.0-48.0); HEMOGLOBIN. 11.7 g/dL (12.0-16.0); LYMPHOCYTES % 16.5 % (20.0-50.0); MEAN CORPUSCULAR VOLUME 90.7 fL (81.0-99.0); MONOCYTES % 7.6 % (2.0-8.0); NEUTROPHILS % 74.3 % (40.0-76.0); PLATELET 347 x1000/uL (130-400); RED BLOOD CELL COUNT 4.05 mill/uL (4.2-5.4); RED CELL DISTRIBUTION WIDTH 15.5 % (11.6-14.6)
[2020-03-23 00:12] LABS: PROTHROMBIN TIME 10.9 sec (9.6-11.0)
[2020-03-23 00:22] LABS: CHLORIDE 103 mEq/L (98-107)
[2020-03-23 00:25] LABS: HCG SCREEN NEGATIVE
[2020-03-23 00:47] LABS: DIGOXIN 0.1 ng/mL (0.9-2.0)
[2020-03-23] MEDS ORDERED: DIGOXIN 500MCG/2ML AMP IV ONE (05:15)
[2020-03-23] MEDS ORDERED: DIGOXIN 125MCG TABLET PO ONE (05:30)
[2020-03-23 09:00] VITALS: BP 147/77
[2020-03-23] MEDS ORDERED: MAGNESIUM HYDROXIDE 400MG/5ML 30ML UDC PO PRN (11:45)
[2020-03-23] MEDS ORDERED: POLYETHYLENE GLYCOL 3350 (17GM) 1 DOSE PACK PO PRN (11:45)
[2020-03-23] MEDS ORDERED: NA PHOS,M-B/NA PHOS,DI-BA ENEMA 118ML PR PRN (11:45)
[2020-03-23 11:49] VITALS: BP 142/72
[2020-03-23 12:32] LABS: BASOPHILS % 0.6 % (0.0-2.0); HEMATOCRIT. 35.8 % (36.0-48.0); HEMOGLOBIN. 11.4 g/dL (12.0-16.0); LYMPHOCYTES % 10.2 % (20.0-50.0); MEAN CORPUSCULAR HEMOGLOBIN 28.7 pg (28.0-32.0); MEAN CORPUSCULAR VOLUME 90.3 fL (81.0-99.0); MEAN PLATELET VOLUME 7.7 fl (7.4-10.4); MONOCYTES % 6.2 % (2.0-8.0); PLATELET 289 x1000/uL (130-400); RED BLOOD CELL COUNT 3.97 mill/uL (4.2-5.4)
[2020-03-23 12:41] LABS: CHLORIDE 102 mEq/L (98-107)
[2020-03-23 12:50] LABS: T4 FREE 0.67 ng/dL (0.76-1.46)
[2020-03-23] MEDS ORDERED: DEXT 5%/0.45% NACL 500ML 500 ML IV ONE (13:30)
[2020-03-23 14:12] LABS: TOTAL IRON BINDING CAPACITY 376 ug/dL (250-450)
[2020-03-23 15:51] VITALS: BP 120/81
[2020-03-23 15:57] LABS: FOLIC ACID (FOLATE) SERUM 16.1 ng/mL (>5.38)
[2020-03-23] MEDS: FERROUS SULFATE 325MG TABLET PO SCH ×2 (17:49→17:50)
[2020-03-23] MEDS: HYDRALAZINE HCL 25MG TABLET PO SCH ×2 (17:49→22:35)
[2020-03-23] MEDS: DILTIAZEM HCL 90MG TABLET PO SCH ×2 (17:49→22:36)
[2020-03-23] MEDS ORDERED: DEXT 5%/0.45% NACL 1000ML 500 ML IV ONE (18:15)
[2020-03-23 20:00] VITALS: BP 182/84
[2020-03-23] MEDS: LOSARTAN POTASSIUM 50 MG TABLET PO SCH (22:35)
[2020-03-23] MEDS: ATORVASTATIN CALCIUM 40MG TABLET PO SCH (22:35)
[2020-03-23] MEDS: METOPROLOL TARTRATE 25MG TABLET PO SCH (23:01)
[2020-03-24] VITALS: BP 105/24
[2020-03-24 04:00] VITALS: BP 144/83
[2020-03-24] MEDS: DILTIAZEM HCL 90MG TABLET PO SCH ×3 (06:40→17:26)
[2020-03-24] MEDS: HYDRALAZINE HCL 25MG TABLET PO SCH ×3 (06:40→21:49)
[2020-03-24 08:00] VITALS: BP 185/94
[2020-03-24] MEDS ORDERED: FUROSEMIDE 20MG/2ML VIAL IVP SCH (09:00)
[2020-03-24] MEDS ORDERED: METHIMAZOLE 5MG TABLET PO SCH (09:00)
[2020-03-24] MEDS ORDERED: FUROSEMIDE 20MG TABLET PO SCH (09:00)
[2020-03-24] MEDS: METOPROLOL TARTRATE 25MG TABLET PO SCH ×2 (09:42→21:49)
[2020-03-24] MEDS: LOSARTAN POTASSIUM 50 MG TABLET PO SCH ×2 (09:43→21:48)
[2020-03-24] MEDS: DULOXETINE HCL 60MG DR CAPSULE PO SCH (09:43)
[2020-03-24] MEDS ORDERED: ASPIRIN 325MG EC TABLET PO SCH (10:15)
[2020-03-24 10:39] LABS: CHLORIDE 102 mEq/L (98-107)
[2020-03-24] MEDS ORDERED: CLONIDINE 0.1MG TABLET PO PRN (11:30)
[2020-03-24 12:00] VITALS: BP 158/86
[2020-03-24] MEDS: FERROUS SULFATE 325MG TABLET PO SCH ×3 (12:05→17:26)
[2020-03-24] MEDS: PANTOPRAZOLE 40MG DR TABLET PO SCH (12:05)
[2020-03-24] MEDS: ASPIRIN 81MG EC TABLET PO SCH (12:05)
[2020-03-24] MEDS: LIDOCAINE 5% PATCH TOP SCH (14:56)
[2020-03-24 15:44] LABS: CLARITY URINE CLOUDY (CLEAR); COLOR URINE YELLOW (YELLOW); KETONES URINE NEGATIVE (NEGATIVE); LEUKOCYTE ESTERASE URINE 3+ (NEGATIVE); NITRITE URINE NEGATIVE (NEGATIVE); OCCULT BLOOD URINE 1+ (NEGATIVE); PH URINE 6.5 (4.5-8.0); PROTEIN URINE TRACE (NEGATIVE); SPECIFIC GRAVITY URINE 1.011 (1.005-1.030); UROBILINOGEN URINE 0.2 E.U./dL (0.2-1.0)
[2020-03-24 16:00] VITALS: BP 119/68
[2020-03-24] MEDS ORDERED: RIVAROXABAN 20 MG TABLET PO SCH ×2 (17:00)
[2020-03-24] MEDS: RIVAROXABAN 15 MG TABLET PO SCH (17:26)
[2020-03-24] MEDS ORDERED: DIGOXIN 125MCG TABLET PO SCH ×2 (18:00)
[2020-03-24 20:26] VITALS: BP 125/61
[2020-03-24] MEDS: ATORVASTATIN CALCIUM 40MG TABLET PO SCH (21:49)
[2020-03-25] VITALS (7 sets, daily range): BP systolic 105–153; BP diastolic 52–72
[2020-03-25] MEDS: DILTIAZEM HCL 90MG TABLET PO SCH ×4 (00:35→17:07)
[2020-03-25] MEDS: HYDRALAZINE HCL 25MG TABLET PO SCH ×3 (06:29→22:00)
[2020-03-25] MEDS: PANTOPRAZOLE 40MG DR TABLET PO SCH (06:29)
[2020-03-25] MEDS: FERROUS SULFATE 325MG TABLET PO SCH ×3 (09:17→17:07)
[2020-03-25] MEDS: LOSARTAN POTASSIUM 50 MG TABLET PO SCH ×2 (09:17→21:19)
[2020-03-25] MEDS: ASPIRIN 81MG EC TABLET PO SCH (09:17)
[2020-03-25] MEDS: METOPROLOL TARTRATE 25MG TABLET PO SCH ×2 (09:17→21:19)
[2020-03-25] MEDS: LIDOCAINE 5% PATCH TOP SCH (09:17)
[2020-03-25] MEDS: DULOXETINE HCL 60MG DR CAPSULE PO SCH (09:17)
[2020-03-25] MEDS: RIVAROXABAN 15 MG TABLET PO SCH (17:07)
[2020-03-25] MEDS: ATORVASTATIN CALCIUM 40MG TABLET PO SCH (21:18)
[2020-03-26] MEDS: DILTIAZEM HCL 90MG TABLET PO SCH ×4 (00:18→18:36)
[2020-03-26 00:25] VITALS: BP 124/71
[2020-03-26] MEDS: ACETYLCYSTEINE 100MG/ML 10% VIAL 4ML INH SCH (02:00)
[2020-03-26 04:43] VITALS: BP 118/59
[2020-03-26] MEDS: HYDRALAZINE HCL 25MG TABLET PO SCH ×3 (05:37→22:45)
[2020-03-26] MEDS: PANTOPRAZOLE 40MG DR TABLET PO SCH (07:29)
[2020-03-26 08:00] VITALS: BP 110/67
[2020-03-26] MEDS: METOPROLOL TARTRATE 25MG TABLET PO SCH ×2 (09:30→20:46)
[2020-03-26] MEDS: ASPIRIN 81MG EC TABLET PO SCH (09:31)
[2020-03-26] MEDS: DULOXETINE HCL 60MG DR CAPSULE PO SCH (09:32)
[2020-03-26] MEDS: LOSARTAN POTASSIUM 50 MG TABLET PO SCH ×2 (09:33→21:24)
[2020-03-26] MEDS: FERROUS SULFATE 325MG TABLET PO SCH ×3 (09:33→18:36)
[2020-03-26] MEDS: LIDOCAINE 5% PATCH TOP SCH (09:38)
[2020-03-26 12:02] VITALS: BP 134/68
[2020-03-26] MEDS ORDERED: DIPHENHYDRAMINE 50MG/ML VIAL IV PRN (12:15)
[2020-03-26] MEDS ORDERED: CEPHALEXIN 250MG CAPSULE PO SCH (12:15)
[2020-03-26] MEDS ORDERED: LEVOFLOXACIN 500MG PREMIX 100 ML IV NR (13:00)
[2020-03-26 13:17] LABS: BG BASE EXCESS 9.2 mmol/L (-2.0-2.0); BG CARBOXYHEMOGLOBIN 0.2 % (0.5-1.5); BG DEOXYHEMOGLOBIN 14.3 % (0.0-5.0); BG FRACTION INSPIRED OXYGEN 21; BG HCO3 ACT 39.8 mmol/L (22.0-26.0); BG METHEMOGLOBIN 0.7 % (0.0-1.5); BG OXYGEN SATURATION 85.6 % (92.0-98.5); BG OXYHEMOGLOBIN 84.8 % (94.0-97.0); BG PCO2 94.6 mmHg (35.0-45.0); BG PH 7.242 (7.350-7.450); BG PO2 55.4 mmHg (75.0-100.0); BG SAMPLE SITE RIGHT RADIAL; BG VENT MODE ROOM AIR
[2020-03-26] MEDS ORDERED: MEROPENEM 500 MG in SODIUM CHLORIDE 0.9% 50 ML IV SCH (13:45)
[2020-03-26] MEDS ORDERED: LIDOCAINE HCL 1% 20ML VIAL (Pyxis) INJ ONE (14:34)
[2020-03-26] MEDS ORDERED: MEROPENEM 1000MG in NORMAL SALINE 100ML IV SCH (16:00)
[2020-03-26 16:02] VITALS: BP 112/61
[2020-03-26] MEDS: RIVAROXABAN 20 MG TABLET PO SCH (18:36)
[2020-03-26 19:58] VITALS: BP 135/58
[2020-03-26] MEDS: ATORVASTATIN CALCIUM 40MG TABLET PO SCH (20:46)
[2020-03-26] MEDS: AZTREONAM 1 G in DEXTROSE 5% WATER 50 ML IV SCH (20:46)
[2020-03-26] MEDS: IPRATROPIUM BROMIDE (0.02%) 0.5MG/2.5ML NEB HHN SCH (21:50)
[2020-03-26] MEDS: BUDESONIDE 0.5MG/2ML NEB HHN SCH (21:50)
[2020-03-27] VITALS (7 sets, daily range): BP systolic 115–142; BP diastolic 50–72
[2020-03-27] MEDS: DILTIAZEM HCL 90MG TABLET PO SCH ×3 (00:15→12:31)
[2020-03-27] MEDS: IPRATROPIUM BROMIDE (0.02%) 0.5MG/2.5ML NEB HHN SCH ×2 (02:00→10:37)
[2020-03-27] MEDS: HYDRALAZINE HCL 25MG TABLET PO SCH ×3 (06:09→21:31)
[2020-03-27] MEDS: PANTOPRAZOLE 40MG DR TABLET PO SCH (06:22)
[2020-03-27] MEDS: AZTREONAM 1 G in DEXTROSE 5% WATER 50 ML IV SCH ×2 (09:14→21:25)
[2020-03-27] MEDS: LOSARTAN POTASSIUM 50 MG TABLET PO SCH ×2 (09:20→21:25)
[2020-03-27] MEDS: ASPIRIN 81MG EC TABLET PO SCH (09:20)
[2020-03-27] MEDS: FERROUS SULFATE 325MG TABLET PO SCH ×3 (09:20→18:10)
[2020-03-27] MEDS: DULOXETINE HCL 60MG DR CAPSULE PO SCH (09:21)
[2020-03-27] MEDS: METOPROLOL TARTRATE 25MG TABLET PO SCH ×2 (09:21→21:25)
[2020-03-27] MEDS: LIDOCAINE 5% PATCH TOP SCH (09:23)
[2020-03-27] MEDS: BUDESONIDE 0.5MG/2ML NEB HHN SCH ×2 (10:38→21:39)
[2020-03-27] MEDS: ACETYLCYSTEINE 100MG/ML 10% VIAL 4ML INH SCH ×3 (10:38→21:39)
[2020-03-27 12:10] LABS: BASOPHILS % 0.7 % (0.0-2.0); EOSINOPHILS % 1.7 % (0.0-5.0); HEMATOCRIT. 33.2 % (36.0-48.0); HEMOGLOBIN. 10.5 g/dL (12.0-16.0); LYMPHOCYTES % 15.4 % (20.0-50.0); MEAN CORPUSCULAR HEMOGLOBIN 28.4 pg (28.0-32.0); MEAN CORPUSCULAR VOLUME 90.1 fL (81.0-99.0); MEAN PLATELET VOLUME 7.6 fl (7.4-10.4); MONOCYTES % 9.3 % (2.0-8.0); NEUTROPHILS % 72.9 % (40.0-76.0); PLATELET 252 x1000/uL (130-400); RED BLOOD CELL COUNT 3.69 mill/uL (4.2-5.4); RED CELL DISTRIBUTION WIDTH 14.7 % (11.6-14.6)
[2020-03-27 12:22] LABS: CHLORIDE 100 mEq/L (98-107)
[2020-03-27] MEDS: IPRATROPIUM/ALBUTEROL 0.5-3(2.5)MG/3ML NEB HHN PRN ×2 (15:02→21:39)
[2020-03-27] MEDS ORDERED: IOHEXOL-350 100 ML BOTTLE ONE (15:20)
[2020-03-27] MEDS: DILTIAZEM HCL 60MG TABLET PO SCH (18:10)
[2020-03-27] MEDS: RIVAROXABAN 20 MG TABLET PO SCH (18:10)
[2020-03-27] MEDS: ATORVASTATIN CALCIUM 40MG TABLET PO SCH (21:25)
[2020-03-28] VITALS: BP 125/65
[2020-03-28] MEDS: DILTIAZEM HCL 60MG TABLET PO SCH ×5 (01:02→23:04)
[2020-03-28] MEDS: IPRATROPIUM/ALBUTEROL 0.5-3(2.5)MG/3ML NEB HHN PRN ×2 (02:28→09:18)
[2020-03-28] MEDS: IPRATROPIUM BROMIDE (0.02%) 0.5MG/2.5ML NEB HHN SCH ×3 (02:48→20:24)
[2020-03-28 04:00] VITALS: BP 137/74
[2020-03-28] MEDS: HYDRALAZINE HCL 25MG TABLET PO SCH ×3 (05:23→21:01)
[2020-03-28 08:00] VITALS: BP 149/95
[2020-03-28] MEDS: PANTOPRAZOLE 40MG DR TABLET PO SCH (08:40)
[2020-03-28] MEDS: DULOXETINE HCL 60MG DR CAPSULE PO SCH (08:41)
[2020-03-28] MEDS: METOPROLOL TARTRATE 25MG TABLET PO SCH ×2 (08:41→21:00)
[2020-03-28] MEDS: LOSARTAN POTASSIUM 50 MG TABLET PO SCH ×2 (08:41→21:00)
[2020-03-28] MEDS: ASPIRIN 81MG EC TABLET PO SCH (08:41)
[2020-03-28] MEDS: FERROUS SULFATE 325MG TABLET PO SCH ×4 (08:42→18:14)
[2020-03-28] MEDS: AZTREONAM 1 G in DEXTROSE 5% WATER 50 ML IV SCH ×2 (08:42→21:00)
[2020-03-28] MEDS: LIDOCAINE 5% PATCH TOP SCH (09:00)
[2020-03-28] MEDS: ACETYLCYSTEINE 100MG/ML 10% VIAL 4ML INH SCH ×2 (09:18→13:50)
[2020-03-28] MEDS: BUDESONIDE 0.5MG/2ML NEB HHN SCH ×2 (09:18→20:24)
[2020-03-28 10:01] LABS: BG BASE EXCESS 11.6 mmol/L (-2.0-2.0); BG CARBOXYHEMOGLOBIN 0.3 % (0.5-1.5); BG DEOXYHEMOGLOBIN 10.6 % (0.0-5.0); BG FRACTION INSPIRED OXYGEN 21; BG HCO3 ACT 36.5 mmol/L (22.0-26.0); BG METHEMOGLOBIN 0.3 % (0.0-1.5); BG OXYGEN SATURATION 89.3 % (92.0-98.5); BG OXYHEMOGLOBIN 88.8 % (94.0-97.0); BG PCO2 49.5 mmHg (35.0-45.0); BG PH 7.486 (7.350-7.450); BG PO2 52.6 mmHg (75.0-100.0); BG SAMPLE SITE RIGHT RADIAL; BG TOTAL HEMOGLOBIN 10.9 g/dL (12.0-18.0); BG VENT MODE ROOM AIR
[2020-03-28 12:00] VITALS: BP 163/92
[2020-03-28 12:54] LABS: CHLORIDE 100 mEq/L (98-107)
[2020-03-28 16:00] VITALS: BP 143/75
[2020-03-28] MEDS: RIVAROXABAN 20 MG TABLET PO SCH (17:46)
[2020-03-28 20:34] VITALS: BP 160/75
[2020-03-28] MEDS: ATORVASTATIN CALCIUM 40MG TABLET PO SCH (21:00)
[2020-03-29] VITALS: BP 142/69
[2020-03-29] MEDS: IPRATROPIUM/ALBUTEROL 0.5-3(2.5)MG/3ML NEB HHN PRN (02:42)
[2020-03-29] MEDS: ACETYLCYSTEINE 100MG/ML 10% VIAL 4ML INH SCH ×2 (02:42→08:52)
[2020-03-29 04:41] VITALS: BP 145/70
[2020-03-29] MEDS: DILTIAZEM HCL 60MG TABLET PO SCH (05:29)
[2020-03-29] MEDS: PANTOPRAZOLE 40MG DR TABLET PO SCH (05:31)
[2020-03-29] MEDS: HYDRALAZINE HCL 25MG TABLET PO SCH (05:32)
[2020-03-29 08:00] VITALS: BP 154/70
[2020-03-29] MEDS: LOSARTAN POTASSIUM 50 MG TABLET PO SCH (08:18)
[2020-03-29] MEDS: AZTREONAM 1 G in DEXTROSE 5% WATER 50 ML IV SCH (08:18)
[2020-03-29] MEDS: LIDOCAINE 5% PATCH TOP SCH (08:18)
[2020-03-29] MEDS: FERROUS SULFATE 325MG TABLET PO SCH (08:19)
[2020-03-29] MEDS: DULOXETINE HCL 60MG DR CAPSULE PO SCH (08:19)
[2020-03-29] MEDS: METOPROLOL TARTRATE 25MG TABLET PO SCH (08:19)
[2020-03-29] MEDS: ASPIRIN 81MG EC TABLET PO SCH (08:19)
[2020-03-29] MEDS: BUDESONIDE 0.5MG/2ML NEB HHN SCH (08:51)
[2020-03-29] MEDS: IPRATROPIUM BROMIDE (0.02%) 0.5MG/2.5ML NEB HHN SCH (08:51)
[2020-03-29 09:21] VITALS: BP 154/70
== END 2020-03-29 11:40 | DRG 45 ==
LOC: ER 23:15 → 6WST 03-23 00:31 → EDBEDREQ 03-23 00:33 → EDBEDREQTM 03-23 00:33 → EDBEDREQDT 03-23 00:33 → ENRESERV 03-23 07:32 → ER 03-23 09:31
PROVIDERS: ADMIT Family Medicine Adult Medicine; ATTEND Family Medicine Adult Medicine
PROC: 5A09357 Assistance with Respiratory Ventilation, Less than 24 Consecutive Hours, Continuous Positive Airway Pressure (ICD-10-PCS; principal; 2020-03-26)
PROC: 02HV33Z Insertion of Infusion Device into Superior Vena Cava, Percutaneous Approach (ICD-10-PCS; 2020-03-26)
PROC: B548ZZA Ultrasonography of Superior Vena Cava, Guidance (ICD-10-PCS; 2020-03-26)
PROC: 5A09357 Assistance with Respiratory Ventilation, Less than 24 Consecutive Hours, Continuous Positive Airway Pressure (ICD-10-PCS; 2020-03-28)
PROC: 5A09357 Assistance with Respiratory Ventilation, Less than 24 Consecutive Hours, Continuous Positive Airway Pressure (ICD-10-PCS; 2020-03-29)
DX: I63.441 Cerebral infarction due to embolism of right cerebellar artery (principal); I21.4 Non-ST elevation (NSTEMI) myocardial infarction; G92 Toxic encephalopathy; R47.1 Dysarthria and anarthria; R13.10 Dysphagia, unspecified; G82.50 Quadriplegia, unspecified; R47.01 Aphasia; I48.0 Paroxysmal atrial fibrillation; I50.32 Chronic diastolic (congestive) heart failure; J44.9 Chronic obstructive pulmonary disease, unspecified; I11.0 Hypertensive heart disease with heart failure; K21.9 Gastro-esophageal reflux disease without esophagitis; I31.3 Pericardial effusion (noninflammatory); E87.3 Alkalosis; E03.9 Hypothyroidism, unspecified; D64.9 Anemia, unspecified; E05.90 Thyrotoxicosis, unspecified without thyrotoxic crisis or storm; I27.20 Pulmonary hypertension, unspecified; B96.4 Proteus (mirabilis) (morganii) as the cause of diseases classified elsewhere; E87.4 Mixed disorder of acid-base balance; F41.9 Anxiety disorder, unspecified; J96.01 Acute respiratory failure with hypoxia; J96.02 Acute respiratory failure with hypercapnia; J98.11 Atelectasis; N39.0 Urinary tract infection, site not specified; E05.20 Thyrotoxicosis with toxic multinodular goiter without thyrotoxic crisis or storm; I25.10 Atherosclerotic heart disease of native coronary artery without angina pectoris; J96.21 Acute and chronic respiratory failure with hypoxia; J96.22 Acute and chronic respiratory failure with hypercapnia; Z20.828 Contact with and (suspected) exposure to other viral communicable diseases; Z99.81 Dependence on supplemental oxygen; Z93.1 Gastrostomy status; Z88.8 Allergy status to other drugs, medicaments and biological substances; Z79.899 Other long term (current) drug therapy; I36.1 Nonrheumatic tricuspid (valve) insufficiency
CPT/HCPCS: 36415; 36600; 70498; 70544; 70551; 71045; 71250; 76937; 80048; 80053; 80162; 80320; 81003; 82375; 82607; 82728; 82746; 82805; 82962; 83540; 83550; 83735; 83880; 84436; 84439; 84443; 84480; 84481; 84484; 84703; 85025; 85044; 87077; 87186; 87635; 92610; 93005; 93306; 93880; 94640; 94660; 97162; 97165; 99285; C1725; J1160; J1940; J1956; J2185; J3490; J7060; J7608; J7626; Q9967; G0480